=== PATIENT | female | born 1975 | race Caucasian/White ===

== ENCOUNTER 2025-04-15 14:56 | Outpatient (RCR) | payer OTHER, SELFPAY | END 2025-05-15 23:59 | disposition home or self-care (01) | LOC: HEMC 14:56 | PROVIDERS: PCP Nurse Practitioner; Referring Provider Obstetrics & Gynecology; Visit Provider Internal Medicine Hematology & Oncology | DX: I26.09 Other pulmonary embolism with acute cor pulmonale (principal); E72.12 Methylenetetrahydrofolate reductase deficiency | CPT/HCPCS: G0463 ==

== ENCOUNTER 2025-04-28 09:58 | Outpatient (OUT) | payer OTHER, SELFPAY ==
--- OUTSIDE RECORDS SUMMARY | 2025-04-28 10:02 | XMS_ITS | Clinical Summary ---
Author Organization [facility] Address [address] [place], [place] [id number] Care Team Providers Care Senior Software Engineer Analytics Name Role Phone Beti Rod RECEPTION AGENT Primary Care Provider Allergies No known active allergies Medications TURMERIC, BULK, MISC Active FLUTICASONE PROPIONATE (FLONASE NASAL) Use in the nose. Act nica montelukast (SINGULAIR) 10 mg tablet Take 10 mg by mouth daily at bedtime. Active fexofenadine (DAHIANA ALLERGY) 180 mg tablet Take 180 mg by mouth once daily. Active Ranitidine HCl 150 mg capsule Take 150 mg by mouth twice daily. Active EPINEPHrine (EPIPEN) 0.3 mg/0.3 mL auto-injector Inject 0.3 mg intramuscularly as needed. Active Active Problems No known active problems Family History Medical History Relation Comments Asthma Father Asthma Sister hydradenitis supprativa Sister Relation Status Comments Father Sister Social History Tobacco Use Types Packs/Day Years Used Date Smoking Tobacco: Former Cigarettes Smokeless Tobacco: Never Area Deprivation Index Answer Date Zion rded National Score (1-100), lower number is lower ri sk Not on file 09/24/2020 State Score (1-10), lower number is lower risk N ot on file 09/24/2020 Data from: https://www.neighborhoodatlas.medicine.[facility].edu/. Last address used for calculation Not on file 09/24/2020 Comments Unknown Sex and Gender Information Value Date Recorded Sex Assigned at Not on file Legal Sex Female 1:08 PM EST Gender Identity Not on file Sexual Orientation Not on file Last Filed Vital Signs Vital Sign Reading Time Taken Comments Blood Pressure 124/86 10/13/2017 1:50 PM EST Pulse 107 10/13/2017 1:50 PM EST Temperature 36.3 C (97.4 F) 10/13/2017 1:50 PM EST Respiratory Rate 20 10/13/2017 1:50 PM EST Oxygen Saturation 100% 10/13/2017 1:50 PM EST Inhaled Oxygen Concentration - - Weight 98 kg (216 lb) 10/13/2017 1:50 PM EST Height 177.8 cm (5' 10 ) 10/13/2017 1:50 PM EST Body Mass Index 30.99 10/13/2017 1:50 PM EST Plan of Treatment Health Maintenance Due Date Last Done Comments Anxiety Screening 1995 Depression Screening 1995 HIV Screening 1995 Hepatitis C Screening 1995 DTaP,Tdap,Td Vaccine (1 - Tdap) 1996 Hepatitis B Vaccine (1 of 3 - 19+ 3-dose series) 1996 Cervical Cancer Screening [address] Colonography 2022 Cologuard (FIT-DNA) 2022 Colonoscopy 2022 Colorectal Cancer Screening 2022 Diabetes Screening 2022 10/13/2017 Fecal Occult Blood 2022 Lipid Screening 2022 Sigmoidoscopy 2022 Covid-19 Vaccine (1 - 2023-2 5 season) 2024 Influenza Vaccine (#1) 2025 7 (Patient/Parent/Guardian Counseled and Declines) Procedures Procedure Name Priority Date/Time Associated Diagnosis Comments COMPREHENSIVE METABOLIC PANEL Routine 10/13/2017 4:55 PM EST from Last 3 Months or Most Recently Relevant to Health Maintenance Results * (ABNORMAL) COMP METABOLIC PANEL (10/13/2017 4:55 PM EST) Protein, Total 7.7 6.3 - 8.0 g/dL 10/13/2017 9:51 PM EST [facility] Albumin 4.1 3.9 - 4.9 g/dL 10/13/2017 9:51 PM EST [facility] Calcium 9.5 8.5 - 10.2 mg/dL 10/13/2017 9:51 PM EST [facility] Bilirubin, Total 0.3 0.2 - 1.3 mg/dL 10/13/2017 9:51 PM [facility] Alkaline Phosphatase 65 32 - 117 U/L 10/13/2017 9:51 PM [facility] AST 17 13 - 35 U/L 10/13/2017 9:51 PM [facility] Glucose 69(L) 74 - 99 mg/dL 10/13/2017 9:51 PM [facility] Comment: The [place] [employer] (ADA) provides guidance for cutoff values for fasting glucose and random glucose. The ADA defines fasting as no caloric intake for at least 8 hours. Fasting plasma glucose results between 100 to 125 mg/dL indicate increased risk for diabetes (prediabetes). Fasting plasma glucose results greater than or equal to 126 mg/dL meet the criteria for diagnosis of diabetes. In the absence of unequivocal hyperglycemia, results should be confirmed by repeat testing. In a patient with classic symptoms of hyperglycemia or hyperglycemic crisis, random plasma glucose results greater than or equal to 200 mg/dL meet the criteria for diagnosis of diabetes. Reference: Standards of Medical Care in Diabetes 2016, [place] [employer]. Diabetes Care. 2016.39(Suppl 1). BUN 14 7 - 21 mg/dL 10/13/2017 9:51 PM [facility] Creatinine 0.75 0.58 - 0.96 mg/dL 10/13/2017 9:51 PM [facility] Sodium 141 136 - 144 mmol/L 10/13/2017 9:51 PM [facility] Potassium 3.8 3.7 - 5.1 mmol/L 10/13/2017 9:51 PM [facility] Chloride 101 97 - 105 mmol/L 10/13/2017 9:51 PM [facility] CO2 25 22 - 30 mmol/L 10/13/2017 9:51 PM [facility] Anion Gap 15 9 - 18 mmol/L 10/13/2017 9:51 PM [facility] ALT 21 7 - 38 U/L 10/13/2017 9:51 PM [facility] eGFR- >60 10/13/2017 9:51 PM [facility] eGFR-All Other Races >60 . 10/13/2017 9:51 PM [facility] Comment: eGFR (Estimated GFR) Units of measure: mL/min/1.73 meters squared eGFR is derived from the reexpressed MDRD Study equation using the following parameters: serum creatinine, age, gender and race. The creatinine assay has been calibrated to be traceable to IDMS. An eGFR <60 mL/min/1.73m2 for >3 months is consistent with chronic kidney disease. Refer to KDOQI guidelines for clinical interpretation. In patients with unstable renal function, e.g. those with acute kidney injury, the eGFR may not accurately reflect actual GFR. 10/13/2017 4:55 PM EST 10/13/2017 5:31 PM EST us Catrina Luciano MD LABORATORY Final Result [facility] [address] [place] [address] from Last 3 Months or Most Recently Relevant to Health Maintenance Care Teams Senior Software Engineer Analytics Relationship Specialty Start Date End Date Beti Rod CNP [facility] [place] [address] [place] [address] PCP - General Family Medicine 09/26/17
--- OUTSIDE RECORDS SUMMARY | 2025-04-28 10:02 | XMS_ITS | Encounter Summary ---
Author Organization [facility] Address [address] [place] [address] Care Team Providers Care Senior Policy Analyst Name Role Phone Unavailable Primary Care Provider Unavailabl e Encounter Details Date Type Department Care Team (Late st Contact Info) Description 04/23/2025 Abstract [facility] [address] [place] [address] Isela Yang MA Social History Tobacco Use Types Packs/Day Years Used Date Smoking Tobacco: Never Assessed Comments Unknown Sex and Gender Information Value Date Recorded Sex Assigned at Not on file Legal Sex Female 6:56 PM EDT Gender Identity Female 03/30/2025 10:00 PM EDT Sexual Orientation Straight 03/30/2025 10 :00 PM EDT documented as of this encounter Plan of Treatment Upcoming Encounters Date Type Department Care Team (Late st Contact Info) Description 05/07/2025 1:30 PM EDT Procedure Visit [facility] [address] [place] [address] Arun Lee, DO [address] [place], [place] [id number] documented as of this encounter Visit Diagnoses Not on filedocumented in this encounter
--- OUTSIDE RECORDS SUMMARY | 2025-04-28 10:02 | XMS_ITS | Clinical Summary ---
Author Organization [facility] Healthcare Address [address] [place] [address] Care Team Providers Care Agile Scrum Coach Name Role Phone Unavailable Primary Care Provider Unavailabl e Allergies Active Allergy Reactions Criticality Noted Date Comments Hydroxyzine Angioedema,Dizziness,Other 07/28/20 17 Molds & Smuts Anaphylaxis High 12/31/2024 Peanut (Diagnostic) Anaphylaxis,Angioede ma,Itching,Sw elling High 03/31/2025 Pineapple 04/17/2018 Medications rivaroxaban (Xarelto) 20 MG tablet 01/18/2025 Active ferrous sulfate 325 (65 Fe) MG tablet 02/21/2025 Active fexofenadine (Sarai) 180 MG tablet Take 180 mg by mouth in the morning. 02/21/2025 Active cholecalciferol (Vitamin D-3) 10 MCG (400 UNIT) tablet Active venlafaxine XR (Effexor XR) 37.5 MG 24 hr capsuleIndicati ons:Abnormal uterine bleeding (AUB),Menorrhag ia with regular cycle,Perimenop ausal vasomotor symptoms Take 1 capsule (37.5 mg) by mouth Daily Do not crush or chew. 30 capsule 5 03/31/2025 Active Encounters Date Type Department Care Team Description 04/23/2025 Abstract [facility] [address] [address] Isela Yang MA 04/09/2025 9:00 AM EDT Ancillary Procedure [facility] [address] [place] [phone] Abnormal uterine bleeding (AUB); Menorrhagia with regular cycle; Perimenopausal vasomotor symptoms 04/09/2025 External Result Encounter [facility] External Department Unsolicited Anna Manzanares NP 03/31/2025 2:30 PM EDT Office Visit [facility] [address] [phone] Arun Lee DO Menorrhagia with regular cycle (Primary Dx); Abnormal uterine bleeding (AUB); Perimenopausal vasomotor symptoms 03/31/2025 Bamboo flowsheet [facility] [address] [place] [phone] Arun Lee DO 03/30/2025 Travel from Last 3 Months Social History Tobacco Use Types Packs/Day Years Used Date Smoking Tobacco: Never Assessed Comments Unknown Sex and Gender Information Value Date Recorded Sex Assigned at Not on file Legal Sex Female 6:56 PM EDT Gender Identity Female 03/30/2025 10:00 PM EDT Sexual Orientation Straight 03/30/2025 10 :00 PM EDT Last Filed Vital Signs Vital Sign Reading Time Taken Comments Blood Pressure 118/86 03/31/2025 2:48 PM EDT Pulse - - Temperature - - Respiratory Rate - - Oxygen Saturation - - Inhaled Oxygen Concentration - - Weight 108 kg (238 lb 8 oz) 03/31/2025 2:48 PM E DT Height - - Body Mass Index - - Plan of Treatment Upcoming Encounters Date Type Department Care Team (Late st Contact Info) Description 05/07/2025 1:30 PM EDT Procedure Visit [facility] [address] [phone] Arun Lee DO [address] [place] [address] Jacquelyn [place], [place] [id number] Procedures Procedure Name Priority Date/Time Associated Diagnosis Comments T4, FREE Routine 04/09/2025 10:33 AM EDT TSH ([facility]) Routine 04/09/2025 10:33 AM EDT CBC WITH AUTO DIFFERENTIAL Routine 04/09/2025 10:33 AM EDT PARTIAL THROMBOPLASTIN TIME, ACTIVATED Routine 04/09/2025 10:33 AM EDT PROTHROMBIN TIME-INR Routine 04/09/2025 10:33 AM EDT US PELVIC COMPLETE W/ TV Routine 04/09/2025 9:46 AM EDT Abnormal uterine bleeding (AUB) Menorrhagia with regular cycle Perimenopausal vasomotor symptoms from Last 3 Months Results * TSH ([facility]) (04/09/2025 10:33 AM EDT) TSH 1.30 0.49 - 4.67 uIU/mL [facility] Comment: PERFORMED AT [facility] [address],[place] [address] 04/09/2025 10:3 3 AM EDT 04/09/2025 10:34 AM EDT us Anna Manzanares NP LAB BLOOD ORDERABLES Final Re sult [facility] * (ABNORMAL) CBC auto differential (04/09/2025 10:33 AM EDT) WHITE BLOOD CELL COUNT, WBC 6.4 4 - 11 x10E9/L [facility] RED BLOOD CELL COUNT, RBC 5.15 3.8 - 5.2 X10E12/L [facility] HEMOGLOBIN 13.6 11.7 - 15.5 g/dL [facility] HEMATOCRIT 40.8 35 - 47 % [facility] MEAN CELL VOLUME, MCV 79(L) 80 - 100 fL [facility] MEAN CELL HEMOGLOBIN, MCH 26.4(L) 27 - 34 pg [facility] MEAN CELL HEMOGLOGIN CONCENTRATION, MCHC 33.3 32 - 36 g/dL [facility] RED CELL DISTRIBUTION WIDTH, RDW 14.5 11.5 - 15 % [facility] PLATELET COUNT 332 150 - 450 X10E9/L [facility] MEAN PLATELET VOLUME, MPV 8.3 7 - 12 fL [facility] % NEUTROPHILS 69.3 % [facility] % LYMPHOCYTES 23.7 % [facility] % MONOCYTES 5.7 % [facility] % EOSINOPHILS 0.6 % [facility] % BASOPHILS 0.7 % [facility] ABSOLUTE NEUTROPHIL 4.4 1.5 - 6.6 10*3/uL [facility] ABSOLUTE LYMPHOCYTE 1.5 1.0 - 3.5 10*3/uL [facility] ABSOLUTE MONOCYTE 0.4 0.0 - 0.9 10*3/uL [facility] ABSOLUTE EOSINOPHIL 0.0 0.0 - 0.4 10*3/uL [facility] ABSOLUTE BASOPHIL 0.0 0.0 - 0.2 10*3/uL [facility] DIFFERENTIAL TYPE AUTOMATED DIFFERENTIAL [facility] Comment: PERFORMED AT [facility] [address],[place] [address] 04/09/2025 10:3 3 AM EDT 04/09/2025 10:34 AM EDT Anna Manzanares INSPECTOR RAG [employer]ORTING LAB BLOOD ORDERABLES Final Re sult Performing Organization Address City/[facility] Co de Phone Number [facility] * APTT (04/09/2025 10:33 AM EDT) APTT 32 26 - 37 sec [facility] Comment: PERFORMED AT [address] [place] [address] 04/09/2025 10:3 3 AM EDT 04/09/2025 10:34 AM EDT Anna Manzanares INSPECTOR [employer]ING LAB BLOOD ORDERABLES Final Re sult [facility] * (ABNORMAL) Protime-INR (04/09/2025 10:33 AM EDT) PROTIME 15.1(H) 9.8 - 13.2 sec [facility] INR 1.3(H) 0.9 - 1.2 NA [facility] Comment: PERFORMED AT [facility] [address] [facility] [place] [address] 04/09/2025 10:3 3 AM EDT 04/09/2025 10:34 AM EDT us Anna Melaraerly INSPECTOR [employer] LAB BLOOD ORDERABLES Final Re sult [facility] * T4, free (04/09/2025 10:33 AM EDT) FREE T4 0.93 0.61 - 1.60 ng/dL [facility] Comment: PERFORMED AT [facility] [address],[place] [address] 04/09/2025 10:3 3 AM EDT 04/09/2025 10:34 AM EDT us Anna Melaraerly INSPECTOR [employer]ING LAB BLOOD ORDERABLES Final Re sult Performing Organization Address [facility] Co de Phone Number [facility] * US Pelvis w/ TV (04/09/2025 9:46 AM EDT) Anatomical Region Laterality Modality Pelvis Ultrasound 04/10/2025 9:48 AM EDT Narrative 04/10/2025 9:48 AM EDT EXAM: US PELVIC COMPLETE W/ TV HISTORY: Abnormal uterine bleeding, heavy and painful periods, anemia. COMPARISON: None available. TECHNIQUE: Two-dimensional transabdominal grayscale ultrasound imaging of the pelvis was performed. Color flow Doppler imaging of the ovaries was also performed. Transvaginal was performed. FINDINGS: UTERUS 9.0 x 4.3 x 6.2 cm The uterus is anteverted in position and demonstrates a normal, homogeneous echotexture. Multiple nabothian cysts are visualized within the cervix. ENDOMETRIUM 1.4 cm The endometrium demonstrates a normal, homogeneous echotexture with trace fluid. RIGHT OVARY The right ovary is not visualized due to overlying bowel gas. LEFT OVARY 3.2 x 1.6 x 2.8 cm The left ovary demonstrates a normal echotexture. There is normal color Doppler flow. There is a dominant follicle visualized. No fluid is present within the cul-de-sac. IMPRESSION: 1. Unremarkable ultrasound of the pelvis. 2. Normal color Doppler flow within the left ovary, the right ovary was not visualized. Interpreted by: Electronically signed by CANDI CHADWICK II, MD, PHD at 10-Apr-2025 09:47:18 AM [facility] Procedure Note Candi Chadwick MD - 04/10/2025 EXAM: US PELVIC COMPLETE W/ TV HISTORY: Abnormal uterine bleeding, heavy and painful periods, anemia. COMPARISON: None available. TECHNIQUE: Two-dimensional transabdominal grayscale ultrasound imaging ofthe pelvis was performed. Color flow Doppler imaging of the ovaries wasalso performed. Transvaginal was performed. FINDINGS: UTERUS 9.0 x 4.3 x 6.2 cm The uterus is anteverted in position and demonstrates a normal,homogeneous echotexture. Multiple nabothian cysts are visualized withinthe cervix. ENDOMETRIUM 1.4 cm The endometrium demonstrates a normal, homogeneous echotexture with tracefluid. RIGHT OVARY The right ovary is not visualized due to overlying bowel gas. LEFT OVARY 3.2 x 1.6 x 2.8 cm The left ovary demonstrates a normal echotexture. There is normal colorDoppler flow. There is a dominant follicle visualized. No fluid is present within the cul-de-sac. IMPRESSION: 1. Unremarkable ultrasound of the pelvis. 2. Normal color Doppler flow within the left ovary, the right ovary wasnot visualized. Interpreted by: Electronically signed by CANDI CHADWICK II, MD, PHD [id number] 09:47:18 AM [facility] Anna Manzanares NP IM US PROCEDURES Final Resul t from Last 3 Months Insurance [employer]
--- OUTSIDE RECORDS SUMMARY | 2025-04-28 10:02 | XMS_ITS | Clinical Summary ---
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 Active FEXOFENADINE HCL (DAHIANA ORAL) Take by mouth. Activ e EPINEPHRINE (EPIPEN INJ) Inject as directed. Active ADVAIR DISKUS 100-50 mcg/dose DISKUS INHALE 1 PUFF BID 2 8 Active albuterol (ACCUNEB) 0.63 mg/3 mL nebulizer solution Inhale 1 ampule by nebulization every 6 (six) hours as needed for wheezing. Active albuterol (PROVENTIL HFA;VENTOLIN HFA) 90 mcg/actuation inhaler Inhale 2 puffs every 6 (six) hours as needed for wheezing. Active LORazepam (ATIVAN) 0.5 mg tablet Take 0.5 mg by mouth every 6 (six) hours as needed for anxiety. Active montelukast (SINGULAIR) 10 mg tablet Take 10 mg by mouth daily. 7 8 Active rivaroxaban (XARELTO) 2.5 mg tablet Take 6 tablets (15 mg total) by mouth 2 (two) times a day with meals for 21 days, THEN 8 tablets (20 mg total) daily with dinner for 90 days. 972 tablet 5 04/24/20 25 Active Problems Problem Noted Date Diagnosed Date DVT (deep venous thrombosis) 01/01/2025 Other acute pulmonary emboli sm, unspecified whether acute cor pulmonale present 12/31/2024 Drainage from wound 05/14/2018 Encounters Date Type Department Care Team Description 04/09/2025 Orders Only INTERFACE-ONLY Yin Wilcox APRN-FNP 04/09/2025 Travel from Last 3 Months Family History Medical History Relation Name Comments COPD Father Diabetes Father Hyperlipidemia Father Hypertension Father Fibromyalgia Mother Breast cancer Neg Hx Relation Name Status Comments Father Alive Mother Alive poor health Sister 1 FILIPPO Alive Sister 2 MICHAEL Alive Social History Tobacco Use Types Packs/Day Years Used Date Smoking Tobacco: Never Smokeless Tobacco: Never Tobacco Cessation:Counseling Given: Not Answered Alcohol Use Standard Drinks/Week Comments Yes 0 (1 standard drink = 0.6 oz pur e alcohol) [facility] Utilities Answer Date Recorded In the past 12 months has th e electric, gas, oil, or water company threatened to shut off services in your home? No 12/31/2024 PRAPARE - Transportation Answer Date Re corded In the past 12 months, has l ack of transportation kept you from medical appointments or from getting medications? No 12/14 In the past 12 months, has l ack of transportation kept you from meetings, work, or from getting things needed for daily living? No 12/31/2024 Housing Instability Answer Date Recorde d Are you worried or concerned that in the next two months you may not have stable housing that you own, rent or stay in as a part of a household? No 12/31/2024 Childcare Answer Date Recorded Childcare Unknown 03/27/2019 Employment Answer Date Recorded Employment Unknown 03/27/2019 Hunger Screening Answer Date Recorded Within the past 12 months we worried whether our food would run out before we got money to buy more. Never True 01/01/2025 Within the past 12 months th e food we bought just didn't last and we didn't have money to get more. Never True 01/01/2025 Purpose - Life Answer Date Recorded Purpose and direction in life Unknown Comments No Sex and Gender Information Value Date Recorded Sex Assigned at Not on file Legal Sex Female 11:24 AM EDT Gender Identity Not on file Sexual Orientation Not on file Last Filed Vital Signs Vital Sign Reading Time Taken Comments Blood Pressure 130/87 01/03/2025 3:42 AM EDT Pulse 73 01/03/2025 3:42 AM EDT Temperature 36.7 C (98 F) 01/03/2025 3:42 AM EDT Respiratory Rate 21 01/03/2025 3:42 AM EDT Oxygen Saturation 97% 01/03/2025 3:42 AM EDT Inhaled Oxygen Concentration - - Weight 106.8 kg (235 lb 8 oz) 12/31/2024 10:58 P M EDT Height 177.8 cm (5' 10 ) 12/31/2024 10:58 PM EDT Body Mass Index 33.79 12/31/2024 10:58 PM EDT Plan of Treatment Upcoming Encounters Date Type Department Care Team (Late st Contact Info) Description 07/08/2025 10:00 AM EDT Lab [facility] [address] [place] [phone] Health Maintenance Due Date Last Done Comments Depression Screening 1989 Adult BMI Follow Up Plan 1995 DTaP,Tdap and Td Vaccines (1 - Tdap) 1996 Pap Smear 1998 Influenza Vaccine 06/16/2025 Adult BMI Screening 12/31/2025 12/31/2024 Tobacco Screening 12/31/2025 12/31/2024 Goals Goal Patient Goal Type Associated Problems Recent Progress Patient-Stated? Author home General Yes Sandra Landaverde LSW Note: Evaluation of progress towards goal: under treatment Medical Devices Not on file Procedures Procedure Name Priority Date/Time Associated Diagnosis Comments APTT Routine 04/09/2025 10:33 AM EDT Abnormal uterine and vaginal bleeding, unspecified Excessive and frequent menstruation with regular cycle Menopausal and female climacteric states T4, FREE Routine 04/09/2025 10:33 AM EDT Abnormal uterine and vaginal bleeding, unspecified Excessive and frequent menstruation with regular cycle Menopausal and female climacteric states PROTIME & INR Routine 04/09/2025 10:33 AM EDT Abnormal uterine and vaginal bleeding, unspecified Excessive and frequent menstruation with regular cycle Menopausal and female climacteric states TSH Routine 04/09/2025 10:33 AM EDT Abnormal uterine and vaginal bleeding, unspecified Excessive and frequent menstruation with regular cycle Menopausal and female climacteric states CBC WITH AUTO DIFFERENTIAL Routine 04/09/2025 10:33 AM EDT Abnormal uterine and vaginal bleeding, unspecified Excessive and frequent menstruation with regular cycle Menopausal and female climacteric states from Last 3 Months Results * ([facility]) CBC auto differential (04/09/2025 10:33 AM EDT) [facility] WBC 6.4 4 - 11 x10E9/L 04/09/2025 1:20 PM EDT [facility] RBC Count 5.15 3.8 - 5.2 X10E12/L 04/09/2025 1:20 PM EDT [facility] Hemoglobin 13.6 11.7 - 15.5 g/dL 04/09/2025 1:20 PM EDT [facility] Hematocrit 40.8 35 - 47 % 04/09/2025 1:20 PM EDT [facility] MCV 79(L) 80 - 100 fL 04/09/2025 1:20 PM EDT [facility] MCH 26.4(L) 27 - 34 pg 04/09/2025 1:20 PM EDT [facility] MCHC 33.3 32 - 36 g/dL 04/09/2025 1:20 PM EDT [facility] RDW 14.5 11.5 - 15 % 04/09/2025 1:20 PM EDT [facility] Platelet Count 332 150 - 450 X10E9/L 04/09/2025 1:20 PM EDT [facility] MPV 8.3 7 - 12 fL 04/09/2025 1:20 PM EDT [facility] Neutrophils % 69.3 % 04/09/2025 1:20 PM EDT [facility] Lymphocytes % 23.7 % 04/09/2025 1:20 PM EDT [facility] Monocytes % 5.7 % 04/09/2025 1:20 PM EDT [facility] Eosinophils % 0.6 % 04/09/2025 1:20 PM EDT [facility] Basophils % 0.7 % 04/09/2025 1:20 PM EDT [facility] Neutrophils Absolute (A) 4.4 1.5 - 6.6 10*3/uL 04/09/2025 1:20 PM EDT [facility] Lymphocytes Absolute 1.5 1.0 - 3.5 10*3/uL 04/09/2025 1:20 PM EDT [facility] Monocytes Absolute 0.4 0.0 - 0.9 10*3/uL 04/09/2025 1:20 PM EDT [facility] Eosinophils Absolute 0.0 0.0 - 0.4 10*3/uL 04/09/2025 1:20 PM EDT [facility] Basophils Absolute 0.0 0.0 - 0.2 10*3/uL 04/09/2025 1:20 PM EDT [facility] Differential Type AUTOMATED DIFFERENTIAL 04/09/2025 1:20 PM EDT [facility] Blood Venous blood / Unknown Venipuncture / Unknown 04/09/2025 10:33 AM EDT 04/09/2025 10:34 AM EDT us Anna Manzanares MEDICAL I D SALES-PHARMACY SERVICES REPRESENTATIVE LAB BLOOD ORDERABLES Fi nal Result [facility] [address] [place] [address], [place] [phone] * APTT (04/09/2025 10:33 AM EDT) APTT 32 26 - 37 sec 04/09/2025 11:16 AM EDT [facility] Blood Venous blood / Unknown Venipuncture / Unknown 04/09/2025 10:33 AM EDT 04/09/2025 10:34 AM EDT Anna Manzanares MEDICAL I D SALES-PHARMACY SERVICES REPRESENTATIVE LAB BLOOD ORDERABLES Fi nal Result [address] [place] [address], [place] * (ABNORMAL) Protime & INR (04/09/2025 10:33 AM EDT) PROTIME 15.1(H) 9.8 - 13.2 sec 04/09/2025 11:16 AM EDT [facility] INR 1.3(H) 0.9 - 1.2 04/09/2025 11:16 AM EDT [facility] Blood Venous blood / Unknown Venipuncture / Unknown 04/09/2025 10:33 AM EDT 04/09/2025 10:34 AM EDT Anna Melaraerly MEDICAL I D SALES-PHARMACY SERVICES REPRESENTATIVE LAB BLOOD ORDERABLES Fi nal Result [address] [place] [address], [place] * TSH (04/09/2025 10:33 AM EDT) TSH 1.30 0.49 - 4.67 uIU/mL 04/09/2025 1:46 PM EDT [facility] Blood Venous blood / Unknown Venipuncture / Unknown 04/09/2025 10:33 AM EDT 04/09/2025 10:34 AM EDT Anna Manzanares MEDICAL I D SALES-PHARMACY SERVICES REPRESENTATIVE LAB BLOOD ORDERABLES Fi nal Result [facility] [address] [place] [address], * T4, free (04/09/2025 10:33 AM EDT) FREE T4 0.93 0.61 - 1.60 ng/dL 04/09/2025 1:50 PM EDT [facility] Blood Venous blood / Unknown Venipuncture / Unknown 04/09/2025 10:33 AM EDT 04/09/2025 10:34 AM EDT Anna Manzanares MEDICAL I D SALES-PHARMACY SERVICES REPRESENTATIVE LAB BLOOD ORDERABLES Fi nal Result Performing Organization Address City/[facility]/ZIP Co de Phone Number [facility] [address] [place] [address], from Last 3 Months Insurance [place]ICAID [place] Advance Directives * Full Code (Latest Code Status on File) Date Activated Date Inactivated Comments 12/31/2024 9:54 PM 01/03/2025 1:56 PM Healthcare Agents on File Name Relationship Healthcare Agent Relationship Communication Phil Bowen Significant Other Health Care Agent Peyman Bowen Son Health Care Agent [email or web address] Joseph Simmons [facility] Agent [email or web address] Care Teams Physical Chemist Relationship Specialty Start Date End Date No Pcp, No Pcp SELVIN Donaldson [id number] PCP - General Family Medicine 12/31/24
--- NOTE | 2025-04-28 10:55 | CT_ITS ---
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 History of IVC structure and iliofemoral clot. COMPARISON: None Spiral images were obtained through the abdomen and pelvis following 100 mL of Omnipaque 300. This CT exam was performed using one or more following dose reduction techniques: Automated exposure control, adjustment of the mA and/or kV according to patient size, or use of iterative reconstruction technique. Limited cuts through the lung bases show minimal atelectasis or scarring. No calcified gallstones are identified. No intrahepatic masses are seen. The spleen, pancreas and adrenal glands show no acute findings. There are symmetric renal nephrograms, without hydronephrosis. There is a tiny fatty lesion at the right kidney suggesting angiomyolipoma. The abdominal aorta is normal caliber. There is opacification of the IVC, iliac and imaged femora vessels down to the mid thigh. There are no filling defects or expansion of the vessels to suggest venous thrombosis. There are tiny lymph nodes. No ascites is seen. There is mild diastases of the rectus muscles and a tiny hiatal hernia containing fat. The small bowel loops are normal caliber. There is mild ascending and transverse colonic stool. The left colon is decompressed. No appendiceal inflammation is seen. There is subtle dextroscoliotic curvature as well as mild degenerative changes at the spine. Images through the pelvis show normal caliber small bowel loops. There is air and mild stool at the distal colon. No diverticular disease is visualized. Patient has a menstrual cup. There are bilateral ovarian cystic areas, larger on the right measuring just under 2 cm in size. These are likely follicles. The urinary bladder is not well distended for evaluation. No ascites is seen. CT/CT angio abdomen pelvis IMPRESSION: BIBASILAR ATELECTASIS AND/OR SCARRING. NO BOWEL OR URINARY TRACT OBSTRUCTION. 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 NO EVIDENCE OF VENOUS THROMBUS. NO ACUTE FINDINGS. Impression dictated by: Jeanne Waters M.D. 04/28/2025 12:19 PM Dictation Location: [place] [address] Electronically authenticated by: [id number] Y Date: 04/28/2025 12:19
== END 2025-04-28 09:59 | disposition home or self-care (01) ==
LOC: CT 10:00
PROVIDERS: PCP Nurse Practitioner; Visit Provider Internal Medicine Hematology & Oncology
DX: E72.12 Methylenetetrahydrofolate reductase deficiency (principal); I26.09 Other pulmonary embolism with acute cor pulmonale; D50.9 Iron deficiency anemia, unspecified; K90.9 Intestinal malabsorption, unspecified
CPT/HCPCS: 74174; Q9967

== ENCOUNTER 2025-05-01 09:52 | Outpatient (OUT) | payer OTHER, SELFPAY ==
--- OUTSIDE RECORDS SUMMARY | 2025-04-08 06:30 | XMS_ITS ---
Author Organization [facility] Address [address] [place], [place] [phone] Care Team Providers Care Equine Breeder Name Role Phone Yin Bell Primary Care Provider [phone] REASON FOR VISIT frequent blood clots Social History Sex Assigned At : Social History Observation Description Sex Assigned At Female Encounters Encounter Location Date Provider Diagnosis East [address] [place] [id number] 04/08 Yin Bell Plan Of Treatment Next Appt Details Provider Name:Mariela lucio, 05/01/2025 12:45:00 PM, [address] [place] [address] [place], [address], Provider Name:Odalis cedillo, 07/10/2025 10:00:00 AM, [address] [place] [address], [phone], Progress Notes * Leann BRENNERDOB:[birth year] (49 yo F)Acc No.[id number]:04/08/2025 Medical Note Patient: Leann SOTO Provider: Kevin Bell :1975 A ge:49 Y S ex:Female Date:04/08/2025 Address:[address] [place], [place] [phone] Subjective: * Chief Complaints: * 1 . Frequent blood clots. * Medical History: Objective: * Vitals: Assessment: Plan: * Treatment: * Billing Information: * Visit Code: * Procedure Codes: * Electronic signature of ARIAS Hernandez on 05/01/2025 at 09:54 AM EDT Sign off status: Pending * Provider: Kevin Bell Date: 04/08/2025 Generated for Celena Raymundo on: 05/01/2025 09:54 AM EDT
--- OUTSIDE RECORDS SUMMARY | 2025-04-15 11:15 | XMS_ITS ---
Author Organization [facility] in [place] Address [address] [place] [address] Care Team Providers Care Neck Skewer Name Role Phone Yin Truong Primary Care Provider Maite Newell [phone] REASON FOR VISIT New PT Hem Encounters Encounter Location Date Provider Diagnosis [facility] [address] [place] [address] 04/15/2025 Maite Winchester Plan Of Treatment Next Appt Details Provider Name:Maite Winchester , 05/20/2025 10:00:00 AM, [address] [place], [address], Progress Notes * Leann FOSTERDOB:1974 (49 yo F)Acc No.[id number]:04/15/2025 UNLOCKED PROGRESS NOTE Progress Notes Patient: Ramon MONTOYA Leann Kilgore Provider: Jeannette Winchester M.D. :1975 A ge:49 Y S ex:Female Date:04/15/2025 Address:[address] [place], [place] [id number] Pcp:ARIAS Johnson Subjective: * Chief Complaints: * 1 . New PT Hem. * Medical History: Objective: * Vitals: Assessment: Plan: * Treatment: * * Electronic signature of Antonio Winchester MD, [id number] on 05/01/2025 at 09:54 AM EDT Sign off status: Pending Visit Status: P EN (Pending) * Provider: Jeannette Winchester M.D. Date: 04/15/2025 Generated for Celena goldstein/Shiloh/Romina on: 05/01/2025 09:54 AM EDT
--- OUTSIDE RECORDS SUMMARY | 2025-05-01 09:54 | XMS_ITS | Encounter Summary ---
Author Organization [facility] Address [address] [place] [address] Care Team Providers Care Patient Access Registrar Name Role Phone Unavailable Primary Care Provider Unavailabl e Encounter Details Date Type Department Care Team (Late st Contact Info) Description 04/23/2025 Abstract [facility] [address] [place] [address] Isela Yang MA Social History Tobacco [...] 05/07/2025 1:30 PM EDT Procedure Visit [facility] OB [address] [place] [address] Arun Lee, DO [address] [place], [place] [id number] documented as of this encounter Visit Diagnoses Not on filedocumented in this encounter
--- OUTSIDE RECORDS SUMMARY | 2025-05-01 09:54 | XMS_ITS | Clinical Summary ---
Author Organization [employer] s tem Address [id number] [address] [place] [address] Care Team Providers Care Seal Mixing Operator Name Role Phone No Pcp, No Pcp [...] = 0.6 oz pur e alcohol) [facility] Utilities Answer Date Recorded In the [...] Info) Description 07/08/2025 10:00 AM EDT Lab [facility] [address] [place] [phone] Health Maintenance Due Date Last Done Comments [...] CBC auto differential (04/09/2025 10:33 AM EDT) [facility] WBC 6.4 4 - 11 x10E9/L 04/09/2025 1:20 PM EDT [facility] RBC Count 5.15 3.8 - 5.2 X10E12/L 04/09/2025 1:20 PM EDT [facility] Hemoglobin 13.6 11.7 - 15.5 g/dL 04/09/2025 1:20 PM EDT [facility] Hematocrit 40.8 35 - 47 % 04/09/2025 1:20 PM EDT [facility] MCV 79(L) 80 - 100 fL 04/09/2025 1:20 PM EDT [facility] MCH 26.4(L) 27 - 34 pg 04/09/2025 1:20 PM EDT [facility] MCHC 33.3 32 - 36 g/dL 04/09/2025 1:20 PM EDT [facility] RDW 14.5 11.5 - 15 % 04/09/2025 1:20 PM EDT [facility] Platelet Count 332 150 - 450 X10E9/L 04/09/2025 1:20 PM EDT [facility] MPV 8.3 7 - 12 fL 04/09/2025 1:20 PM EDT [facility] Neutrophils % 69.3 % 04/09/2025 1:20 PM EDT [facility] Lymphocytes % 23.7 % 04/09/2025 1:20 PM EDT [facility] Monocytes % 5.7 % 04/09/2025 1:20 PM EDT [facility] Eosinophils % 0.6 % 04/09/2025 1:20 PM EDT [facility] Basophils % 0.7 % 04/09/2025 1:20 PM EDT [facility] Neutrophils Absolute (A) 4.4 1.5 - 6.6 10*3/uL 04/09/2025 1:20 PM EDT [facility] Lymphocytes Absolute 1.5 1.0 - 3.5 10*3/uL 04/09/2025 1:20 PM EDT [facility] Monocytes Absolute 0.4 0.0 - 0.9 10*3/uL 04/09/2025 1:20 PM EDT [facility] Eosinophils Absolute 0.0 0.0 - 0.4 10*3/uL 04/09/2025 1:20 PM EDT [facility] Basophils Absolute 0.0 0.0 - 0.2 10*3/uL 04/09/2025 1:20 PM EDT [facility] Differential Type AUTOMATED DIFFERENTIAL 04/09/2025 1:20 PM EDT [facility] Blood Venous blood / Unknown Venipuncture / Unknown 04/09/2025 10:33 AM EDT 04/09/2025 10:34 AM EDT us Anna Manzanares [facility] BLOOD ORDERABLES Fi nal Result [facility] [address] [place] [address], [place] [phone] * APTT (04/09/2025 10:33 AM EDT) APTT 32 26 - 37 sec 04/09/2025 11:16 AM EDT [facility] Blood Venous blood / Unknown Venipuncture / Unknown 04/09/2025 10:33 AM EDT 04/09/2025 10:34 AM EDT Anna Manzanares [facility] BLOOD ORDERABLES Fi nal Result [address] [place] [address], [place] * (ABNORMAL) Protime & INR (04/09/2025 10:33 AM EDT) PROTIME 15.1(H) 9.8 - 13.2 sec 04/09/2025 11:16 AM EDT [facility] INR 1.3(H) 0.9 - 1.2 04/09/2025 11:16 AM EDT [facility] Blood Venous blood / Unknown Venipuncture / Unknown 04/09/2025 10:33 AM EDT 04/09/2025 10:34 AM EDT Anna Melaraerly [facility] BLOOD ORDERABLES Fi nal Result [address] [place] [address], [place] * TSH (04/09/2025 10:33 AM EDT) TSH 1.30 0.49 - 4.67 uIU/mL 04/09/2025 1:46 PM EDT [facility] Blood Venous blood / Unknown Venipuncture / Unknown 04/09/2025 10:33 AM EDT 04/09/2025 10:34 AM EDT Anna Manzanares [facility] BLOOD ORDERABLES Fi nal Result [facility] [address] [place] [address], * T4, free (04/09/2025 10:33 AM EDT) FREE T4 0.93 0.61 - 1.60 ng/dL 04/09/2025 1:50 PM EDT [facility] Blood Venous blood / Unknown Venipuncture / Unknown 04/09/2025 10:33 AM EDT 04/09/2025 10:34 AM EDT Anna Manzanares [facility] BLOOD ORDERABLES Fi nal Result Performing Organization Address City/[facility]/ZIP Co de Phone Number [facility] [address] [place] [address], from Last 3 Months Insurance MEDICAID [place] Advance Directives * Full Code (Latest Code Status on File) Date Activated Date Inactivated Comments 12/31/2024 9:54 PM 01/03/2025 1:56 PM Healthcare Agents on File Name Relationship Healthcare Agent Relationship Communication Phil Bowen Significant Other Health Care Agent Peyman Bowen Son Health Care Agent [email or web address] Joseph Simmons [facility] Agent [email or web address] Care Teams Seal Mixing Operator Relationship Specialty Start Date End Date No Pcp, No Pcp SELVIN Donaldson [address] PCP - General Family Medicine 12/31/24
--- OUTSIDE RECORDS SUMMARY | 2025-05-01 09:54 | XMS_ITS | Clinical Summary ---
Author Organization [facility] Address [address] [place], [place] [address] Care Team Providers Care Cable Engineer Outside Plant Name Role Phone Beti Rod HEAD CHEF Primary Care Provider Allergies No known active [...] N ot on file 09/24/2020 Data from: [email or web address] Last address used for calculation Not [...] - 8.0 g/dL 10/13/2017 9:51 PM EST [facility] Albumin 4.1 3.9 - 4.9 g/dL 10/13/2017 9:51 PM EST [facility] Calcium 9.5 8.5 - 10.2 mg/dL 10/13/2017 9:51 PM EST [facility] Bilirubin, Total 0.3 0.2 - 1.3 mg/dL 10/13/2017 9:[address] [facility] Alkaline Phosphatase 65 32 - 117 U/L 10/13/2017 9:[address] [facility] AST 17 13 - 35 U/L 10/13/2017 9:[address] [facility] Glucose 69(L) 74 - 99 mg/dL 10/13/2017 9:[address] [facility] Comment: The [place] Diabetes Association (ADA) provides guidance for cutoff [...] Standards of Medical Care in Diabetes 2016, [place] Diabetes Association. Diabetes Care. 2016.39(Suppl 1). BUN 14 7 - 21 mg/dL 10/13/2017 9:[address] [facility] Creatinine 0.75 0.58 - 0.96 mg/dL 10/13/2017 9:[address] [facility] Sodium 141 136 - 144 mmol/L 10/13/2017 9:[address] [facility] Potassium 3.8 3.7 - 5.1 mmol/L 10/13/2017 9:[address] [facility] Chloride 101 97 - 105 mmol/L 10/13/2017 9:[address] [facility] CO2 25 22 - 30 mmol/L 10/13/2017 9:[address] [facility] Anion Gap 15 9 - 18 mmol/L 10/13/2017 9:[address] [facility] ALT 21 7 - 38 U/L 10/13/2017 9:[address] [facility] eGFR- >60 10/13/2017 9:[address] [facility] eGFR-All Other Races >60 . 10/13/2017 9:[address] [facility] Comment: eGFR (Estimated GFR) Units [...] us Catrina Luciano MD LABORATORY Final Result [facility] [address] [place] [address] from Last 3 Months or Most Recently Relevant to Health Maintenance Care Teams Cable Engineer Outside Plant Relationship Specialty Start Date End Date Beti Rod CNP [facility] [place] [place] [address] PCP - General Family Medicine 09/26/17
--- OUTSIDE RECORDS SUMMARY | 2025-05-01 09:54 | XMS_ITS | Patient Health Record ---
Author Organization [facility] Address [address] [place] [address] Care Team Providers Care Franchise Sales Representative Name Role Phone Yin Truong Primary Care Provider Maite Newell Unavailable [phone] Results Component Value Reference Range Notes CT angio abdomen pelvis (Not yet reviewed by provider) Interpretation: Performing Lab: Notes/Report: Source Facility: [place] [address] CT Scan Report Signed Patient: HARJINDER FOSTER MR#: [id number] : 1975 Acct:[id number] Age/Sex: 49 / F ADM Date: 04/28/25 Loc: CT Attending Dr: Maite Winchester M.D. Ordering Physician: Maite Winchester M.D. 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 History of IVC structure and iliofemoral clot. COMPARISON: None Spiral images were obtained through the abdomen and pelvis following 100 mL of Omnipaque 300. This CT exam was performed using one or more following dose reduction techniques: Automated exposure control, adjustment of the mA and/or kV according to patient size, or use of iterative reconstruction technique. Limited cuts through the lung bases show minimal atelectasis or scarring. No calcified gallstones are identified. No intrahepatic masses are seen. The spleen, pancreas and adrenal glands show no acute findings. There are symmetric renal nephrograms, without hydronephrosis. There is a tiny fatty lesion at the right kidney suggesting angiomyolipoma. The abdominal aorta is normal caliber. There is opacification of the IVC, iliac and imaged femora vessels down to the mid thigh. There are no filling defects or expansion of the vessels to suggest venous thrombosis. There are tiny lymph nodes. No ascites is seen. There is mild diastases of the rectus muscles and a tiny hiatal hernia containing fat. The small bowel loops are normal caliber. There is mild ascending and transverse colonic stool. The left colon is decompressed. No appendiceal inflammation is seen. There is subtle dextroscoliotic curvature as well as mild degenerative changes at the spine. Images through the pelvis show normal caliber small bowel loops. There is air and mild stool at the distal colon. No diverticular disease is visualized. Patient has a menstrual cup. There are bilateral ovarian cystic areas, larger on the right measuring just under 2 cm in size. These are likely follicles. The urinary bladder is not well distended for evaluation. No ascites is seen. CT/CT angio abdomen pelvis IMPRESSION: BIBASILAR ATELECTASIS AND/OR SCARRING. NO BOWEL OR URINARY TRACT OBSTRUCTION. 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 NO EVIDENCE OF VENOUS THROMBUS. NO ACUTE FINDINGS. Impression dictated by: Jeanne Waters M.D. 04/28/2025 12:19 PM Dictation Location: [place] [address] Electronically authenticated by: [id number] Y Date: 04/28/2025 12:19 Dictated By: Jeanne Waters M.D. Signed By: 04/28/25 1221 DD/ 1219 TD/TT: Energy Control Officer: The [address] [address] [address] Scan Report Signed Patient: CRESENCIO FOSTER MR#: [id number] : 1975 Acct:[id number] Age/Sex: 49 / F ADM Date: 04/28/25 Loc: CT Attending Dr: Ari Winchester M.D. Ordering Physician: Maite Winchester M.D. Date of Service: 04/28/25 Procedure(s): CT ang io abdomen pelvis Accession Number(s): [id number] cc: Yin Bell MEDICAL PHOTOGRAPHER [address] [address] Patient Name: HARJINDER FOSTER MRN: [id number] date: 1975 Sex: F Assigned Patient Location: CT Current Patient Location: CT Accession/Order Numb er: [id number] Exam Date: 04/28/2025 12:05 Report Date: 04/28/2025 12:19 At the request of: MAITE WINCHESTER MD Procedure: CT angio abdomen pelvis CTV OF THE ABDOMEN A ND PELVIS WITH CONTRAST CLINICAL DATA: May t ransverse syndrome. History of IVC structure and iliofemoral clot. COMPARISON: None Spiral images were o btained through the abdomen and pelvis following 100 mL of Omnipaque 300. This CT exam was performed using one or more following dose reduction techniques : Automated exposure control, adjustment of the mA and/or kV according to danita ent size, or use of iterative reconstruction technique. Limited cuts through the lung bases show minimal atelectasis or scarring. No calcified gallsto nerissa are identified. No intrahepatic masses are seen. The spleen, pancreas and adrenal glands show no acute findings. There are symmetric renal neph rograms, without hydronephrosis. There is a tiny fatty lesion at the right kidney suggesting angiomyolipoma. The abdominal aorta is normal caliber. There is opacification of the IVC, iliac and imaged fem ora vessels down to the mid thigh. There are no filling defects or expansion of the vessels to suggest venous thrombosis. There are tiny lymph nodes. No ascites is seen. There is mild diastases of the rectus muscles and a tiny h iatal hernia containing fat. The small bowel loops are normal caliber. Ther e is mild ascending and transverse colonic stool. The left colon is decomp ressed. No appendiceal inflammation is seen. There is subtle dextroscoliot ic curvature as well as mild degenerative changes at the spine. Images through the p sarah show normal caliber small bowel loops. There is air and mild stool at th e distal colon. No diverticular disease is visualized. Patient has a menstr ual cup. There are bilateral ovarian cystic areas, larger on the right measuri ng just under 2 cm in size. These are likely follicles. The urinary bladder is not well distended for evaluation. No ascites is seen. C T/CT angio abdomen pelvis IMPRESSION: BIBASILAR ATELECTASI S AND/OR SCARRING. NO BOWEL OR URINARY TRACT OBSTRUCTION. 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 NO EVIDENCE OF VENOUS THROMBUS. NO ACUTE FINDINGS. Impression dictated by: Jeanne Waters M.D. 04/28/2025 12:19 PM Dictation Location: [place] [address] Electronically authe nticated by: [id number] Y Date: 04/28/2025 12:19 Dictated By: Jeanne Waters M.D. Signed By: 04/28/25 1221 DD/ 1219 TD/TT: Energy Control Officer: Reason For Referral No Information Encounters Encounter Location Date Provider Diagnosis [facility] Oncology [facility] [place] [place] [address] 04/15/2025 Maite Winchester Plan Of Treatment Pending Test Test Name Order Date CT angio abdomen pelvis 04/28/2025 Next Appt Details Provider Name:Maite Winchester , 05/20/2025 10:00:00 AM, [address] [place], [address], Insurance Providers Payer Name Payer Address Payer Phone Subscriber Number Group Number Insured Name Patient Relationship to Insured Coverage Start Date Coverage End Date [employer] MEDICAID [address] [place] [address] [phone] [id number] Harjinder Foster Self - patient is the insured
--- OUTSIDE RECORDS SUMMARY | 2025-05-01 09:54 | XMS_ITS | Clinical Summary ---
Author Organization [facility] Healthcare Address [address] [place] [address] Care Team Providers Care Diving Board Assembler Name Role Phone Unavailable Primary Care Provider [...] Department Care Team Description 04/23/2025 Abstract [facility] [address] [address] Isela Yang MA 04/09/2025 9:00 AM EDT Ancillary Procedure [facility] [address] [place] [phone] Abnormal uterine bleeding (AUB); Menorrhagia with regular cycle; Perimenopausal vasomotor symptoms 04/09/2025 External Result Encounter [facility] External Department Unsolicited Anna Manzanares NP 03/31/2025 2:30 PM EDT Office Visit [facility] [address] [phone] Arun Lee DO Menorrhagia with regular cycle (Primary Dx); Abnormal uterine bleeding (AUB); Perimenopausal vasomotor symptoms 03/31/2025 Bamboo flowsheet [facility] [address] [place] [address] Arun Lee DO 03/30/2025 Travel from Last [...] 05/07/2025 1:30 PM EDT Procedure Visit [facility] [address] [address] Arun Lee DO [address] [place] [address] Jacquelyn Sanchez, [place] [id number] Procedures Procedure Name Priority Date/Time Associated Diagnosis [...] - 4.67 uIU/mL [facility] Comment: PERFORMED AT [facility] [address],[place] [address] 04/09/2025 10:3 3 AM EDT 04/09/2025 10:34 [...] TYPE AUTOMATED DIFFERENTIAL [facility] Comment: PERFORMED AT [facility] [address],[place] [address] 04/09/2025 10:3 3 AM EDT 04/09/2025 10:34 AM EDT Anna Manzanares RN L[facility]ENSED PRACTICAL LAB BLOOD ORDERABLES Final Re sult Performing Organization Address City/[facility] Co de Phone Number [facility] * APTT (04/09/2025 10:33 AM EDT) APTT 32 26 - 37 sec [facility] Comment: PERFORMED AT [address] [place] [address] 04/09/2025 10:3 3 AM EDT 04/09/2025 10:34 AM EDT Anna Manzanares RN LICENSED PRACTICAL LAB BLOOD ORDERABLES Final Re sult [facility] * (ABNORMAL) Protime-INR (04/09/2025 10:33 AM EDT) PROTIME 15.1(H) 9.8 - 13.2 sec [facility] INR 1.3(H) 0.9 - 1.2 NA [facility] Comment: PERFORMED AT [facility] [address] [facility] [place] [address] 04/09/2025 10:3 3 AM EDT 04/09/2025 10:34 AM EDT us Anna Melaraerly RN LICENSED PRACTICAL LAB BLOOD ORDERABLES Final Re sult [facility] * T4, free (04/09/2025 10:33 AM EDT) FREE T4 0.93 0.61 - 1.60 ng/dL [facility] Comment: PERFORMED AT [facility] [address],[place] [address] 04/09/2025 10:3 3 AM EDT 04/09/2025 10:34 AM EDT us Anna Melaraerly RN LICENSED PRACTICAL LAB BLOOD ORDERABLES Final Re sult Performing Organization Address [facility] Co de Phone Number [facility] * [...] II, MD, PHD at 10-Apr-2025 09:47:18 AM [facility] Procedure Note Candi Chadwick MD - [...] signed by CANDI CHADWICK II, MD, PHD [id number] 09:47:18 AM [facility] Anna Manzanares NP IM US PROCEDURES Final Resul t from Last 3 Months Insurance [facility] MEDICAID
[2025-05-01 10:25] LABS: Hematocrit 42.6 % (36.0-48.0); Hemoglobin 14.1 g/dL (12.0-16.0); Immature Granulocytes Abs Auto 0.01 10^3/uL (0.00-0.03); Immature Granulocytes Pct Auto 0.1 % (0.0-0.5); Lymphocytes Absolute Auto 1.6 10^3/uL (1.2-3.8); Mean Corpuscular HGB Conc 33.1 g/dL (29.9-35.2); Mean Corpuscular Hemoglobin 26.4 pg (26.7-34.0); Mean Corpuscular Volume 79.6 fL (81.0-99.0); Platelet Count 334 10^3/uL (150-450); Red Blood Count 5.35 10^6/uL (4.20-5.40); White Blood Count 7.4 10^3/uL (4.0-11.0)
[2025-05-01 11:15] LABS: Iron 50.0 ug/dL (50.0-170.0); Percent Iron Saturation 14.9 %; Total Iron Binding Capacity 336.0 ug/dL (250.0-450.0)
[2025-05-02 15:09] LABS: Beta-2 Glycoprotein I Ab, IgA <9 (0-25); Beta-2 Glycoprotein I Ab, IgG <9 (0-20); Beta-2 Glycoprotein I Ab, IgM <9 (0-32)
[2025-05-02 16:14] LABS: Anticardiolipin Ab,IgG,Qn <9 GPL U/mL (0-14); Anticardiolipin Ab,IgM,Qn <9 MPL U/mL (0-12)
== END 2025-05-01 09:53 | disposition home or self-care (01) ==
LOC: LAB 09:52
PROVIDERS: PCP Nurse Practitioner; Visit Provider Internal Medicine Hematology & Oncology
DX: E72.12 Methylenetetrahydrofolate reductase deficiency (principal); I26.09 Other pulmonary embolism with acute cor pulmonale; D50.9 Iron deficiency anemia, unspecified; K90.9 Intestinal malabsorption, unspecified
CPT/HCPCS: 36415; 82728; 83540; 83550; 85025; 86146; 86147; 86148

== ENCOUNTER 2025-05-07 12:16 | Outpatient (REF) | payer OTHER, SELFPAY | END 2025-05-07 12:17 | disposition home or self-care (01) | LOC: LAB 12:16 | PROVIDERS: PCP Nurse Practitioner; Visit Provider Obstetrics & Gynecology | DX: N92.0 Excessive and frequent menstruation with regular cycle (principal); N93.9 Abnormal uterine and vaginal bleeding, unspecified | CPT/HCPCS: 88305 ==

== ENCOUNTER 2025-05-20 07:50 | Outpatient (RCR) | payer OTHER, SELFPAY | END 2025-06-15 23:59 | disposition home or self-care (01) | LOC: HEMC 07:50 | PROVIDERS: PCP Nurse Practitioner; Visit Provider Internal Medicine Hematology & Oncology | DX: I26.09 Other pulmonary embolism with acute cor pulmonale (principal); E72.12 Methylenetetrahydrofolate reductase deficiency; D50.9 Iron deficiency anemia, unspecified; K90.9 Intestinal malabsorption, unspecified; Z86.718 Personal history of other venous thrombosis and embolism; Z79.01 Long term (current) use of anticoagulants; D23.10 Other benign neoplasm of skin of unspecified eyelid, including canthus | CPT/HCPCS: 36415; 80061; G0463 ==

== ENCOUNTER 2025-05-20 13:08 | Outpatient (OUT) | payer OTHER, SELFPAY ==
--- OUTSIDE RECORDS SUMMARY | 2025-04-08 06:30 | XMS_ITS ---
Author Organization [facility] Address [address] [place] [phone] Care Team Providers Care Furnace Mechanic Name Role Phone Yin Bell Primary Care Provider REASON FOR VISIT frequent blood clots Social History Sex Assigned At : Social History Observation Description Sex Assigned At Female Encounters Encounter Location Date Provider Diagnosis East [address] [place] [id number] 04/08 Yin Bell Plan Of Treatment Next Appt Details Provider Name:Odalis Mcghee nguyen, 07/10/2025 10:00:00 AM, [address] [place] [address], [phone], Progress Notes * Leann BRENNERDOB:[birth year] (49 yo F)Acc No.[id number]:04/08/2025 Medical Note Patient: Leann SOTO Provider: Kevin Bell :1975 A ge:49 Y S ex:Female Date:04/08/2025 Address:[address] [place], [place] [id number] Subjective: * Chief Complaints: * 1 . Frequent blood clots. * Medical History: Objective: * Vitals: Assessment: Plan: * Treatment: * Billing Information: * Visit Code: * Procedure Codes: * Electronic signature of ARIAS Hernandez on 06/20/2025 at 01:10 PM EDT Sign off status: Pending * Provider: Kevin Bell Date: 0 04/08/2025 Generated for Celena goldstein/Shiloh/Jianitting on: 0 06/20/2025 01:10 PM EDT
--- OUTSIDE RECORDS SUMMARY | 2025-04-15 11:15 | XMS_ITS ---
Author Organization [facility] [place] Address [address] [place] [address] Care Team Providers Care Public Health Physician Name Role Phone Yin Truong Primary Care Provider Maite Newell [phone] REASON FOR VISIT New PT Hem Encounters Encounter Location Date Provider Diagnosis [facility] [address] [place] [address] 04/15/2025 Maite Winchester Plan Of Treatment Next Appt Details Provider Name:Maite Winchester , 12/23/2025 10:30:00 AM, [address] [place], [address], Progress Notes * Leann FOSTERDOB:1974 (49 yo F)Acc No.[id number]:04/15/2025 UNLOCKED PROGRESS NOTE Progress Notes Patient: Ramon MONTOYA Leann Kilgore Provider: Jeannette Winchester M.D. :1975 A ge:49 Y S ex:Female Date:04/15/2025 Address:[address] [place], [place] [id number] Pcp:ARIAS oJhnson Subjective: * Chief Complaints: * 1 . New PT Hem. * Medical History: Objective: * Vitals: Assessment: Plan: * Treatment: * * Electronic signature of Antonio Winchester MD, [id number] on 06/20/2025 at 01:10 PM EDT Sign off status: Pending Visit Status: P EN (Pending) * Provider: Jeannette Winchester M.D. Date: 0 04/15/2025 Generated for Celena goldstein/Shiloh/Romina on: 06/20/2025 01:10 PM EDT
--- OUTSIDE RECORDS SUMMARY | 2025-04-15 11:15 | XMS_ITS ---
Author Organization [facility] in [place] Address [address] [place] [address] Care Team Providers Care Hearings Reporter Name Role Phone Yin Truong Primary Care Provider Maite Newell [phone] REASON FOR VISIT New PT Hem Encounters Encounter Location Date Provider Diagnosis [facility] [address] [place] [address] 04/15/2025 Maite Winchester Plan Of Treatment Next Appt Details Provider Name:Maite Winchester , 05/20/2025 10:00:00 AM, [address] [place], [address], Progress Notes * Leann FOSTERDOB:1974 (49 yo F)Acc No.[id number]:04/15/2025 UNLOCKED PROGRESS NOTE Progress Notes Patient: Ramon MONTOYA Leann Kilgore Provider: Jeannette Winchester M.D. :1975 A ge:49 Y S ex:Female Date:04/15/2025 Address:[address] [place], [place] [phone] Pcp:ARIAS Johnson Subjective: * Chief Complaints: * 1 . New PT Hem. * Medical History: Objective: * Vitals: Assessment: Plan: * Treatment: * * Electronic signature of Antonio Winchester MD, [id number] on 05/07/2025 at 08:44 AM EDT Sign off status: Pending Visit Status: P EN (Pending) * Provider: Jeannette Winchester M.D. Date: 04/15/2025 Generated for Celena goldstein/Shiloh/Romina on: 05/07/2025 08:44 AM EDT
--- OUTSIDE RECORDS SUMMARY | 2025-05-02 08:00 | XMS_ITS ---
Author Organization [facility] vices Address [address] [place] [address] Care Team Providers Care Yarn Tester Name Role Phone Yin Bell Primary Care Provider Mariela Nesbitt Unavailable [phone] REASON FOR VISIT lab Medications Medication SIG (Take, Route, Fr equency, Duration) Notes Start Date End Date Status Cephalexin 500 MG 1 capsule Orally twi ce a day for 7 days 05/02/2025 Active Social History Sex Assigned At : Social History Observation Description Sex Assigned At Female Encounters Encounter Location Date Provider Diagnosis Main [address] [place] [id number] 05/02/2025 Marielatrell Nesbitt Urinary tract infect ion N39.0 Assessments Encounter Date Diagnosis (ICD Code) Assessment Notes Treatment Notes Treatment Clinical Notes Section Notes 05/02/2025 Urinary tract infection (ICD-10 - N39.0) Plan Of Treatment Medication Medication Name Sig Start Date Stop Date Notes Cephalexin 500 MG 1 capsule Orally twice a day for 7 days 05/02/2025 Next Appt Details Provider Name:Odalis cedillo, 07/10/2025 10:00:00 AM, [address] [place], [place], [phone], Progress Notes * Leann BRENNERDOB:[birth year] (49 yo F)Acc No.[id number]:05/02/2025 Patient: Leann SOTO :1975 A ge:49 Y S ex:Female Address:[address] [place] [address], [phone] * Refills Start Cephalexin Capsule, 500 MG, Orally, 14 Capsule, 1 capsule, twice a day, 7 days, Refills=0 Subjective: * Chief Complaints: * L ab * Medical History: * Surgical History: * Hospitalization/Major Diagno stic Procedure: * Medications: Objective: * Vitals: * Physical Examination: Assessment: * Assessment: 1. U rinary tract infection - N39.0 (Primary) Plan: * Treatment: * Procedure Codes: * true * Date: Generated for Celena goldstein/Shiloh/eTransmitting on: 0 05/07/2025 02:51 PM EDT
--- OUTSIDE RECORDS SUMMARY | 2025-05-02 12:23 | XMS_ITS | Encounter Summary ---
Author Organization [facility] Address [id number] [address] [place] [address] Care Team Providers Care Prototype Fabricator Name Role Phone No Pcp, No Pcp Primary Care Provider Unavailabl e Encounter Details Date Type Department Care Team (Latest Contact Info) Description 05/02/2025 12:23 PM EDT - 05/02/2025 11:59 PM EDT Hospital Encounter [facility] - Ultrasound [address] [place] [phone] Urinary symptom or sign Discharge Disposition: Home Social History Tobacco Use Types Packs/Day Years Used Date Smoking Tobacco: Never Smokeless Tobacco: Never Alcohol Use Standard Drinks/Week Comments Yes 0 (1 standard drink = 0.6 oz pur e alcohol) SOCIALLY [facility] Utilities Answer Date Recorded In the past 12 months has e electric, gas, oil, or water company [...] on file Sexual Orientation Not on file documented as of this encounter Medications at Time of Discharge ADVAIR DISKUS 100-50 mcg/dose DISKUS INHALE 1 PUFF BID 2 02/05/2018 albuterol (ACCUNEB) 0.63 mg/3 mL nebulizer solution Inhale 1 ampule by nebulization every 6 (six) hours as needed for wheezing. albuterol (PROVENTIL HFA;VENTOLIN HFA) 90 mcg/actuation inhaler Inhale 2 puffs every 6 (six) hours as needed for wheezing. EPINEPHRINE (EPIPEN INJ) Inject as directed. FEXOFENADINE HCL (DAHIANA ORAL) Take by mouth. LORazepam (ATIVAN) 0.5 mg tablet Take 0.5 mg by mouth every 6 (six) hours as needed for anxiety. montelukast (SINGULAIR) 10 mg tablet Take 10 mg by mouth daily. 7 04/08/2018 ranitidine (ZANTAC) 150 mg tablet Take 150 mg by mouth 2 (two) times a day. documented as of this encounter Plan of Treatment Upcoming Encounters Date Type Department Care Team (Late st Contact Info) Description 07/08/2025 10:00 AM EDT Lab [facility] - Lab [address] [place] [address] documented as of this encounter Goals Goal Patient Goal Type Associated Problems Recent Progress Patient-Stated? Author home General Yes Sandra Landaverde LSW Note: Evaluation of progress towards goal: under treatment documented as of this encounter Procedures Procedure Name Priority Date/Time Associated Diagnosis Comments US RETROPERITONEAL COMPLETE STAT 05/02/2025 12:43 PM EDT Urinary symptom or sign documented in this encounter Results * Ultrasound retroperitoneal complete (05/02/2025 12:43 PM EDT) Anatomical Region Laterality Modality Body Ultrasound 05/02/2025 12:5 6 PM EDT Narrative 05/02/2025 12:58 PM EDT US RETROPERITONEAL COMPLETE CLINICAL HISTORY: Urinary symptoms flank pain COMPARISON: No prior Sonographic images kidneys and bladder obtained with chavarria scale and color Doppler reviewed FINDINGS: Right kidney: 10.7 x 4.6 x 5.4 cm. No hydronephrosis. No solid or cystic mass. No shadowing stones. Left kidney: 10.6 x 5.3 x 5.8 cm. No hydronephrosis. No solid or cystic mass. No shadowing stones. Bladder not completely distended but otherwise unremarkable bilateral ureteral jets are visualized. Prevoid volume 215.6 mL. Post void volume 11.4 mL. IMPRESSION: * Normal renal ultrasound. * Normal bladder Finalized by Salvador Holbrook MD on 05/02/2025 12:58 PM Procedure Note Salavdor Holbrook MD - 05/02/2025 US RETROPERITONEAL COMPLETE CLINICAL HISTORY: Urinary symptoms flank pain COMPARISON: No prior Sonographic images kidneys and bladder obtained with chavarria scale and colorDoppler reviewed FINDINGS: Right kidney: 10.7 x 4.6 x 5.4 cm. No hydronephrosis. No solid or cysticmass. No shadowing stones. Left kidney: 10.6 x 5.3 x 5.8 cm. No hydronephrosis. No solid or cysticmass. No shadowing stones. Bladder not completely distended but otherwise unremarkable bilateralureteral jets are visualized. Prevoid volume 215.6 mL. Post void .4 mL. IMPRESSION: * Normal renal ultrasound. * Normal bladder Finalized by Salvador Holbrook MD on 05/02/2025 12:58 PM us Mariela Nesbitt MD IMG US ORDERABLES Final Resul t documented in this encounter Visit Diagnoses Diagnosis Urinary symptom or sign documented in this encounter Care Teams Prototype Fabricator Relationship Specialty Start Date End Date No Pcp, [place] [address] PCP - General Family Medicine 12/31/24 documented as of this encounter
--- OUTSIDE RECORDS SUMMARY | 2025-05-07 13:30 | XMS_ITS | Encounter Summary ---
Author Organization [facility] Address [address] [place] [address] Care Team Providers Care Project Development Director Name Role Phone Unavailable Primary Care Provider Unavailabl e Reason for Visit * Reason Comments Pre-op Visit EMBX Encounter Details Date Type Department Care Team (Late st Contact Info) Description 05/07/2025 1:30 PM EDT Procedure Visit [facility] OB [address] [place] [address] Arun eLe DO [address] [facility] [address] [place], [place] [phone] Pre-op examination; Pelvic pain; Menorrhagia with regular cycle; Abnormal uterine bleeding (AUB); Squamous acanthoma of eyelid Social History Tobacco Use Types Packs/Day Years [...] Care Team (Late st Contact Info) Description 06/19/2025 10:00 AM EDT Office Visit [facility] OB [address] [place] [address] Georgie Villa PA [address] [facility] [place] [address] Scheduled Orders Name Type Priority Associated Diagnoses Orde r Schedule Lipid panel Lab Routine Squamous acanthoma of eyelid Expected: 05/07/2025 (Approximate), Expires: 05/07/2026 documented as of this encounter Visit Diagnoses Diagnosis Pre-op examination Pelvic pain Menorrhagia with regular cycle Abnormal uterine bleeding (AUB) Squamous acanthoma of eyelid Benign neoplasm of eyelid, including canthus documented in this encounter
--- OUTSIDE RECORDS SUMMARY | 2025-05-07 14:51 | XMS_ITS | Clinical Summary ---
Author Organization [facility] Address [id number] [address] [place] [address] Care Team Providers Care Hospitalist Program Director Name Role Phone No Pcp, No Pcp [...] Encounters Date Type Department Care Team Description 05/02/2025 12:23 PM EDT - 05/02/2025 11:59 PM EDT Hospital Encounter [facility] - Ultrasound [address] [place] [address] Urinary symptom or sign Discharge Disposition: Home 05/01/2025 Travel 04/09/2025 Orders Only INTERFACE-ONLY Yin Wilcox APRN-FNP [...] = 0.6 oz pur e alcohol) SOCIALLY [facility] Utilities Answer Date Recorded In the past 12 months has e [employer], gas, oil, or water company threatened to [...] Info) Description 07/08/2025 10:00 AM EDT Lab [facility] - Lab [address] [place] [phone] Health Maintenance Due Date Last Done Comments [...] 12:43 PM EDT Urinary symptom or sign APTT Routine 04/09/2025 10:33 AM EDT Abnormal [...] states from Last 3 Months Results * Ultrasound retroperitoneal complete (05/02/2025 12:43 [...] MD on 05/02/2025 12:58 PM Procedure Note Salvador Holbrook MD - 05/02/2025 US RETROPERITONEAL COMPLETE [...] visualized. Prevoid volume 215.6 mL. Post void ulqubo52.4 mL. IMPRESSION: * Normal renal ultrasound. * Normal bladder Finalized by Salvador Holbrook MD on 05/02/2025 12:58 PM us Mariela Nesbitt MD [facility] US ORDERABLES Final Resul t * (ABNORMAL) CBC auto differential (04/09/2025 10:33 AM EDT) WBC 6.4 4 - 11 x10E9/L 04/09/2025 1:20 PM EDT [facility] RBC Count 5.15 3.8 - 5.2 X10E12/L 04/09/2025 1:20 PM EDT [facility] Hemoglobin 13.6 11.7 - 15.5 g/dL 04/09/2025 1:20 PM EDT [facility] Hematocrit 40.8 35 - 47 % 04/09/2025 1:20 PM EDT [facility] MCV 79(L) 80 - 100 fL 04/09/2025 1:20 PM EDT [facility] MCH 26.4(L) 27 - 34 pg 04/09/2025 1:20 PM EDT [facility] MCHC 33.3 32 - 36 g/dL 04/09/2025 1:20 PM EDT [facility] RDW 14.5 11.5 - 15 % 04/09/2025 1:20 PM EDT [facility] Platelet Count 332 150 - 450 X10E9/L 04/09/2025 1:20 PM EDT [facility] MPV 8.3 7 - 12 fL 04/09/2025 1:20 PM EDT [facility] Neutrophils % 69.3 % 04/09/2025 1:20 PM EDT [facility] Lymphocytes % 23.7 % 04/09/2025 1:20 PM EDT [facility] Monocytes % 5.7 % 04/09/2025 1:20 PM EDT [facility] Eosinophils % 0.6 % 04/09/2025 1:20 PM EDT [facility] Basophils % 0.7 % 04/09/2025 1:20 PM EDT [facility] Neutrophils Absolute (A) 4.4 1.5 - 6.6 10*3/uL 04/09/2025 1:20 PM EDT [facility] Lymphocytes Absolute 1.5 1.0 - 3.5 10*3/uL 04/09/2025 1:20 PM EDT [facility] Monocytes Absolute 0.4 0.0 - 0.9 10*3/uL 04/09/2025 1:20 PM EDT [facility] Eosinophils Absolute 0.0 0.0 - 0.4 10*3/uL 04/09/2025 1:20 PM EDT [facility] Basophils Absolute 0.0 0.0 - 0.2 10*3/uL 04/09/2025 1:20 PM EDT [facility] Differential Type AUTOMATED DIFFERENTIAL 04/09/2025 1:20 PM EDT [facility] Blood Venous blood / Unknown Venipuncture / Unknown 04/09/2025 10:33 AM EDT 04/09/2025 10:34 AM EDT Anna Melaraerly [facility] BLOOD ORDERABLES Fi nal Result [facility] [address] [place] [address], [place] [phone] * APTT (04/09/2025 10:33 AM EDT) APTT 32 26 - 37 sec 04/09/2025 11:16 AM EDT [facility] Blood Venous blood / Unknown Venipuncture / Unknown 04/09/2025 10:33 AM EDT 04/09/2025 10:34 AM EDT Anna Leighton [facility] BLOOD ORDERABLES Fi nal Result Performing Organization Address City/[facility]/ZIP Co de Phone Number [address] [place] [address], [place] * (ABNORMAL) Protime & INR (04/09/2025 10:33 AM EDT) PROTIME 15.1(H) 9.8 - 13.2 sec 04/09/2025 11:16 AM EDT [facility] INR 1.3(H) 0.9 - 1.2 04/09/2025 11:16 AM EDT [facility] Blood Venous blood / Unknown Venipuncture / Unknown 04/09/2025 10:33 AM EDT 04/09/2025 10:34 AM EDT Anna Leighton [facility] BLOOD ORDERABLES Fi nal Result [facility] [address] [place] [address]. [place] [address], [place] * TSH (04/09/2025 10:33 AM EDT) TSH 1.30 0.49 - 4.67 uIU/mL 04/09/2025 1:46 PM EDT [facility] Blood Venous blood / Unknown Venipuncture / Unknown 04/09/2025 10:33 AM EDT 04/09/2025 10:34 AM EDT Anna Leighton [facility] BLOOD ORDERABLES Fi nal Result [facility] [address] [place] [address], * T4, free (04/09/2025 10:33 AM EDT) FREE T4 0.93 0.61 - 1.60 ng/dL 04/09/2025 1:50 PM EDT [facility] Blood Venous blood / Unknown Venipuncture / Unknown 04/09/2025 10:33 AM EDT 04/09/2025 10:34 AM EDT Anna Leighton [facility] BLOOD ORDERABLES Fi nal Result [facility] [address] [place] [address], from Last 3 Months Insurance MEDICAID [place] Advance Directives * Full Code (Latest Code Status on File) Date Activated Date Inactivated Comments 12/31/2024 9:54 PM 01/03/2025 1:56 PM Healthcare Agents on File Name Relationship Healthcare Agent Relationship Communication Phil Bowen Significant Other Health Care Agent Peyman Simmons Health Care Agent [email or web address] Joseph Simmons Health Care Agent [email or web address] Care Teams Hospitalist Program Director Relationship Specialty Start Date End Date No Pcp, No Pcp [place] [id number] PCP - General Family Medicine 12/31/24
--- OUTSIDE RECORDS SUMMARY | 2025-05-07 14:51 | XMS_ITS | Encounter Summary ---
Author Organization [facility] Address [id number] [address] [place] [address] Care Team Providers Care Account Clerk Name Role Phone No Pcp, No Pcp Primary Care Provider Unavailabl e Encounter Details Date Type Department Care Team (Latest Contact Info) Description 05/01/2025 Travel Social History Tobacco Use Types Packs/Day Years Used Date Smoking Tobacco: Never Smokeless Tobacco: Never Alcohol Use Standard Drinks/Week Comments Yes 0 (1 standard drink = 0.6 oz pur e alcohol) SOCIALLY [facility] Utilities Answer Date Recorded In the [...] on file documented as of this encounter Plan of Treatment Upcoming Encounters Date Type Department Care Team (Late st Contact Info) Description 07/08/2025 10:00 AM EDT Lab [facility] - Lab [address] [place] [address] documented as of this encounter Goals Goal Patient Goal Type Associated Problems Recent Progress Patient-Stated? Author home General Yes Sandra Landaverde LSW Note: Evaluation of progress towards goal: under treatment documented as of this encounter Visit Diagnoses Not on filedocumented in this encounter Care Teams Account Clerk Relationship Specialty Start Date End Date No Pcp, [place] [phone] PCP - General Family Medicine 12/31/24 documented as of this encounter
--- OUTSIDE RECORDS SUMMARY | 2025-05-07 14:51 | XMS_ITS | Encounter Summary ---
Author Organization [facility] Address [address] [place] [address] Care Team Providers Care Crown Buffer Name Role Phone Unavailable Primary Care Provider Unavailabl e Encounter Details Date Type Department Care Team (Late st Contact Info) Description 04/23/2025 Abstract [facility] OB [address] [place] [address] Isela Yang MA Social History Tobacco [...] 06/19/2025 10:00 AM EDT Office Visit [facility] OB [address] [place] [address] Georgie Villa PA [address] [place], [place] [phone] documented as of this encounter Visit Diagnoses Not on filedocumented in this encounter
--- OUTSIDE RECORDS SUMMARY | 2025-05-07 14:51 | XMS_ITS | Clinical Summary ---
Author Organization [facility] Address [address] [place], [place] [address] Care Team Providers Care Commercial Development Manager Name Role Phone Beti Rod SAUSAGE MACHINE OPERATOR Primary Care Provider Allergies No known active [...] N ot on file 09/24/2020 Data from: https://www.neighborhoodatlas.medicine.[facility].edu/. Last address used for calculation Not on [...] Blood 2022 Lipid Screening 2022 Sigmoidoscopy 2022 Influenza Vaccine (#1) 2025 7 (Patient/Parent/Guardian Counseled and Declines) Procedures Procedure Name Priority Date/Time Associated Diagnosis Comments COMPREHENSIVE METABOLIC PANEL Routine 10/13/2017 4:55 PM EST from Last 3 Months or Most Recently Relevant to Health Maintenance Results * (ABNORMAL) COMP METABOLIC PANEL (10/13/2017 4:55 PM EST) Pathologist [facility] Protein, Total 7.7 6.3 - 8.0 g/dL 10/13/2017 9:51 PM EST [facility] Albumin 4.1 3.9 - 4.9 g/dL 10/13/2017 9:51 PM EST [facility] Calcium 9.5 8.5 - 10.2 mg/dL 10/13/2017 9:51 PM EST [facility] Bilirubin, Total 0.3 0.2 - 1.3 mg/dL 10/13/2017 9:51 PM EST [facility] Alkaline Phosphatase 65 32 - 117 U/L 10/13/2017 9:51 PM [facility] AST 17 13 - 35 U/L 10/13/2017 9:51 PM [facility] Glucose 69(L) 74 - 99 mg/dL 10/13/2017 9:51 PM [facility] Comment: The [place] Diabetes Association (ADA) provides guidance for cutoff [...] Standards of Medical Care in Diabetes 2016, [place] Diabetes Association. Diabetes Care. 2016.39(Suppl 1). BUN 14 7 - 21 mg/dL 10/13/2017 9:51 PM [facility] Creatinine 0.75 0.58 - 0.96 mg/dL 10/13/2017 9:51 PM [facility] Sodium 141 136 - 144 mmol/L 10/13/2017 9:51 PM [facility] Potassium 3.8 3.7 - 5.1 mmol/L 10/13/2017 9:51 PM [facility] Chloride 101 97 - 105 mmol/L 10/13/2017 9:51 PM [facility] CO2 25 22 - 30 mmol/L 10/13/2017 9:51 PM [facility] Anion Gap 15 9 - 18 mmol/L 10/13/2017 9:51 PM [facility] ALT 21 7 - 38 U/L 10/13/2017 9:51 PM [facility] eGFR- >60 10/13/2017 9:51 PM [facility] eGFR-All Other Races >60 . 10/13/2017 9:51 PM [facility] Comment: eGFR (Estimated GFR) Units [...] us Catrina Luciano MD LABORATORY Final Result [facility] [address] [place] [address] from Last 3 Months or Most Recently Relevant to Health Maintenance Care Teams Commercial Development Manager Relationship Specialty Start Date End Date Beti Rod CNP [facility] [place] [address] [place] [address] PCP - General Family Medicine 09/26/17
--- OUTSIDE RECORDS SUMMARY | 2025-05-07 14:51 | XMS_ITS | Clinical Summary ---
Author Organization [facility] Address [address] [place] [address] Care Team Providers Care Lavatory Attendant Name Role Phone Unavailable Primary Care Provider Unavailabl e Allergies Active Allergy Reactions Criticality Noted Date Comments Hydroxyzine Angioedema,Dizziness,Other 07/28/20 17 Molds & Smuts Anaphylaxis High 12/31/2024 Peanut (Diagnostic) Anaphylaxis,Angioede ma,Itching,Sw elling High 03/31/2025 Pineapple 04/17/2018 Medications rivaroxaban (Xarelto) 20 MG tablet 5 Active ferrous sulfate 325 (65 Fe) MG tablet 5 Active fexofenadine (Sarai) 180 MG tablet Take 180 mg by mouth in the morning. 5 Active cholecalcifero l (Vitamin D-3) 10 MCG (400 UNIT) tablet Active cephalexin (Keflex) 500 MG capsule Take 500 mg by mouth in the morning and 500 mg before bedtime. 5 Active methocarbamol (Robaxin) 500 MG tablet TAKE 1 TABLET BY MOUTH EVERY 4 HOURS FOR 14 DAYS 5 Active phenazopyridin e (Pyridium) 200 MG tablet 5 Active venlafaxine XR (Effexor XR) 37.5 MG 24 hr capsuleIndicat ions:Abnormal uterine bleeding (AUB),Menorrha leah with regular cycle,Perimeno pausal vasomotor symptoms Take 1 capsule (37.5 mg) by mouth Daily Do not crush or chew. 30 capsule 5 5 05/07/20 25 Discontinued Encounters Date Type Department Care Team Description 05/07/2025 1:30 PM EDT Procedure Visit [facility] [address] [place] [address] Arun Lee DO Pre-op examination; Pelvic pain; Menorrhagia with regular cycle; Abnormal uterine bleeding (AUB); Squamous acanthoma of eyelid 05/05/[address] [facility] [address] [place] [address] Felisha Greer MA 04/23/2025 Abstract [facility] [address] [place] [address] Isela Yang MA 04/09/2025 9:00 AM EDT Ancillary Procedure [facility] [address] [place] [address] Abnormal uterine bleeding (AUB); Menorrhagia with regular cycle; Perimenopausal vasomotor symptoms 04/09/2025 External Result Encounter [facility] External Department Unsolicited Anna Manzanares NP 03/31/2025 2:30 PM EDT Office Visit [facility] [address] [place] [address] Arun Lee DO Menorrhagia with regular cycle (Primary Dx); Abnormal uterine bleeding (AUB); Perimenopausal vasomotor symptoms 03/31/2025 Bamboo flowsheet [facility] [address] [place] [address] Arun Lee DO 03/30/2025 Travel from Last [...] 06/19/2025 10:00 AM EDT Office Visit [facility] [address] [place] [address] Georgie Villa PA [address] [place] [address] Procedures Procedure Name Priority Date/Time Associated Diagnosis [...] - 4.67 uIU/mL [facility] Comment: PERFORMED AT [facility] [address],[place] [address] 04/09/2025 10:3 3 AM EDT 04/09/2025 10:34 AM EDT Anna Manzanares SENIOR MARKETING ASSOCIATE LAB BLOOD ORDERABLES Final Re sult BLUE * (ABNORMAL) CBC auto differential (04/09/2025 10:33 [...] TYPE AUTOMATED DIFFERENTIAL [facility] Comment: PERFORMED AT [facility] [address],[place] [address] 04/09/2025 10:3 3 AM EDT 04/09/2025 10:34 AM EDT us Anna Manzanares SENIOR MARKETING ASSOCIATE LAB BLOOD ORDERABLES Final Re sult [facility] * APTT (04/09/2025 10:33 AM EDT) APTT 32 26 - 37 sec [facility] Comment: PERFORMED AT [address] [place] [address] 04/09/2025 10:3 3 AM EDT 04/09/2025 10:34 AM EDT us Anna Manzanares SENIOR MARKETING ASSOCIATE LAB BLOOD ORDERABLES Final Re sult Performing Organization Address [facility] Co de Phone Number [facility] * (ABNORMAL) Protime-INR (04/09/2025 10:33 AM EDT) PROTIME 15.1(H) 9.8 - 13.2 sec [facility] INR 1.3(H) 0.9 - 1.2 NA [facility] Comment: PERFORMED AT [address] [place] [address] 04/09/2025 10:3 3 AM EDT 04/09/2025 10:34 AM EDT us Anna Manzanares SENIOR MARKETING ASSOCIATE LAB BLOOD ORDERABLES Final Re sult Performing Organization Address [facility] de Phone Number [facility] * T4, free (04/09/2025 10:33 AM EDT) FREE T4 0.93 0.61 - 1.60 ng/dL [facility] Comment: PERFORMED AT [facility] [address],[place] [address] 04/09/2025 10:3 3 AM EDT 04/09/2025 10:34 AM EDT us Anna Manzanares SENIOR MARKETING ASSOCIATE LAB BLOOD ORDERABLES Final Re sult Performing Organization Address [facility] de Phone Number [facility] * US Pelvis [...] II, MD, PHD at 10-Apr-2025 09:47:18 AM [facility] Procedure Note Candi Chadwick MD - [...] signed by CANDI CHADWICK II, MD, PHD 09:47:18 AM [facility] us Anna Manzanares NP IMG US PROCEDURES Final Resul t from Last 3 Months Insurance [employer] MEDICAID
--- OUTSIDE RECORDS SUMMARY | 2025-05-07 14:52 | XMS_ITS | Patient Health Record ---
Author Organization The [facility] in [place] Address [address] [place] [address] Care Team Providers Care Tank Washer Name Role Phone Yin Truong Primary Care Provider Maite Newell Unavailable [phone] Results Component Value Reference Range Notes CT angio abdomen pelvis (Not yet reviewed by provider) Interpretation: Performing Lab: Notes/Report: Source Facility: [place] [address] CT Scan Report Signed Patient: HARJINDER FOSTER MR#: [id number] : 1975 Acct:[id number] Age/Sex: 49 / F ADM Date: 04/28/25 Loc: CT Attending Dr: Maite Winchester M.D. Ordering Physician: Maite Winchester M.D. Date of Service: 04/28/25 Procedure(s): CT angio abdomen pelvis Accession Number(s): [id number] cc: Yin Bell CERTIFIED PERSONAL FINANCE COUNSELOR [place] [id number] Patient Name: HARJINDER FOSTER MRN: [id number] date: 1975 Sex: F Assigned Patient Location: CT Current Patient Location: CT Accession/Order Number: [id number] Exam Date: 04/28/2025 12:05 Report Date: 04/28/2025 [...] Waters M.D. 04/28/2025 12:19 PM Dictation Location: [place] [address] Electronically authenticated by: [id number] Y Date: 04/28/2025 12:19 Dictated By: Jeanne Waters M.D. Signed By: 04/28/25 1221 DD/ 1219 TD/TT: Flat Sorting Machine Clerk: The [address] [address] [address] Scan Report Signed Patient: HARJINDER FOSTER MR#: [id number] : 1975 Acct:[id number] Age/Sex: 49 / F ADM Date: 04/28/25 Loc: CT Attending Dr: Ari Winchester M.D. Ordering Physician: Maite Winchester M.D. Date of Service: 04/28/25 Procedure(s): CT ang io abdomen pelvis Accession Number(s): [id number] cc: Yin Bell CERTIFIED PERSONAL FINANCE COUNSELOR [address] [address] Patient Name: HARJINDER FOSTER MRN: [id number] date: 1975 Sex: F Assigned Patient Location: CT Current Patient Location: CT Accession/Order Numb er: [id number] Exam Date: 04/28/2025 12:05 Report Date: 04/28/2025 12:19 At the request of: MAITE WINCHESTER MD Procedure: CT angio abdomen pelvis CTV OF THE ABDOMEN A ND PELVIS WITH CONTRAST CLINICAL DATA: May transverse [...] seen. CT/CT angio abdomen pelvis IMPRESSION: BIBASILAR ATELECTASI S AND/OR SCARRING. NO BOWEL OR URINARY TRACT OBSTRUCTION. 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 NO EVIDENCE OF VENOU S THROMBUS. NO ACUTE FINDINGS. Impression dictated by: Jeanne Waters M.D. 04/28/2025 12:19 PM Dictation Location: [place] [address] Electronically authenticated by: [id number] Y Date: 04/28/2025 12:19 Dictated By: Jeanne Waters M.D. Signed By: 04/28/25 1221 DD/ 1219 TD/TT: Flat Sorting Machine Clerk: CBC AUTO DIFF (Not yet revie wed by provider) Interpretation: Performing Lab: Notes/Report: [facility] , White Blood Count 7.4 4.0-11.0 10 3/uL Red Blood Count 5.35 4.20-5.40 10 6/uL Hemoglobin 14.1 12.0-16.0 g/dL Hematocrit 42.6 36.0-48.0 % Mean Corpuscular Volume 79.6 81.0-99.0 fL Mean Corpuscular Hemoglobin 26.4 26.7-34.0 pg Mean Corpuscular HGB Conc 33.1 29.9-35.2 g/dL Red Cell Distribution Width 14.0 11.0-15.0 % Platelet Count 334 150-450 10 3/uL Mean Platelet Volume 9.2 9.5-13.5 fL Neutrophils Percent Auto 71.4 43.0-75.0 % Lymphocytes Percent Auto 21.2 20.5-60.0 % Monocytes Percent Auto 5.4 1.7-12.0 % Eosinophils Percent Auto 1.2 0.9-7.0 % Basophils Percent Auto 0.7 0.2-2.0 % Immature Granulocytes Pct Auto 0.1 0.0-0.5 % Neutrophils Absolute Auto 5.3 1.4-6.5 10 3/uL Lymphocytes Absolute Auto 1.6 1.2-3.8 10 3/uL Monocytes Absolute Auto 0.4 0.3-0.8 10 3/uL Eosinophils Absolute Auto 0.1 0.0-0.7 10 3/uL Basophils Absolute Auto 0.1 0.0-0.1 10 3/uL Immature Granulocytes Abs Auto 0.01 0.00-0.03 10 3/uL Performing Lab: see note - [facility] LB IRON AND TIBC (Not yet revie wed by provider) Interpretation: Performing Lab: Notes/Report: [facility] , Iron 50.0 50.0-170.0 ug/dL Total Iron Binding Capacity 336.0 250.0-450.0 ug/dL Percent Iron Saturation 14.9 Performing Lab: see note - [facility] LB LAB TESTING (Not yet reviewe d by provider) Interpretation: Performing Lab: Notes/Report: [id number] Ferritin [facility] , Miscellaneous Test COMMENT . Test Ordered: [id number] Ferritin Ferritin 57 ng/mL Reference Range: 15-150 Performed at: - [facility] [id number] Silviculture Teacher: Renzo Garcia PhD, Phone: [phone] Performing Lab: see note - [facility] LB Beta-2 Glycoprotein I Ab,G,A ,M (Not yet reviewed by provider) Interpretation: Performing Lab: Notes/Report: [facility] , Beta-2 Glycoprotein I Ab, IgG <9 0-20 Result Units: GPI IgG units The reference interval reflects a 3SD or 99th percentile interval, which is thought to represent a potentially clinically significant result in accordance with the International Consensus Statement on the classification criteria for definitive antiphospholipid syndrome (APS). J Thromb Haem 2006;4:295-306. Beta-2 Glycoprotein I Ab, IgA <9 0-25 Result Units: GPI IgA units The reference interval reflects a 3SD or 99th percentile interval, which is thought to represent a potentially clinically significant result in accordance with the International Consensus Statement on the classification criteria for definitive antiphospholipid syndrome (APS). J Thromb Haem 2006;4:295-306. Beta-2 Glycoprotein I Ab, IgM <9 0-32 Result Units: GPI IgM units The reference interval reflects a 3SD or 99th percentile interval, which is thought to represent a potentially clinically significant result in accordance with the International Consensus Statement on the classification criteria for definitive antiphospholipid syndrome (APS). J Thromb Haem 2006;4:295-306. Performed at: [address] [id number] Silviculture Teacher: Renzo Garcia PhD, Phone: [phone] Performing Lab: see note - [facility] LB Anticardiolipin Ab, IgG/M, Q n (Not yet reviewed by provider) Interpretation: Performing Lab: Notes/Report: [facility] , Anticardiolipin Ab,IgG,Qn <9 0-14 GPL U/mL Negative: <15 Indeterminate: 15 - 20 Low-Med Positive: >20 - 80 High Positive: >80 Anticardiolipin Ab,IgM,Qn <9 0-12 MPL U/mL Negative: <13 Indeterminate: 13 - 20 Low-Med Positive: >20 - 80 High Positive: >80 Performed at: [address] [id number] Silviculture Teacher: Renzo Garcia PhD, Phone: [phone] Performing Lab: see note [facility] LB LAB TESTING (Not yet reviewe d by provider) Interpretation: Performing Lab: Notes/Report: [id number] Antiphosphatidylserine, IgG and IgM [facility] , Miscellaneous Test COMMENT . Test Ordered: [id number] Antiphosphatidylserine, IgG/IgM Antiphosphatidylserine IgG 12 Units BN Reference Range: 0-30 Antiphosphatidylserine IgM 23 Units BN Reference Range: 0-30 Performed at: [address] [id number] Silviculture Teacher: Lyle Jefferson MD, Phone: [phone] Performed at: [address] [id number] Silviculture Teacher: Renzo Garcia PhD, Phone: [phone] Performing Lab: see note - [facility] LB Reason For Referral No Information Encounters Encounter Location Date Provider Diagnosis [facility] [address] [place] [address] 04/15/2025 Maite Winchester Plan Of Treatment Pending Test Test Name Order Date CBC AUTO DIFF 05/01/2025 IRON AND TIBC 05/01/2025 LAB TESTING 05/01/2025 LAB TESTING 05/01/2025 CT angio abdomen pelvis 04/28/2025 Beta-2 Glycoprotein I Ab,G,A,M Anticardiolipin Ab, IgG/M, Qn 05/01/2025 Next Appt Details Provider Name:Maite Yeboahwla , 05/20/2025 10:00:00 AM, [address] [place], [address], Insurance Providers Payer Name Payer Address Payer Phone Subscriber Number Group Number Insured Name Patient Relationship to Insured Coverage Start Date Coverage End Date [employer] MEDICAID [address] [place] [address] [phone] [id number] Harjinder Foster Self - patient is the insured
--- OUTSIDE RECORDS SUMMARY | 2025-05-07 14:52 | XMS_ITS | Encounter Summary ---
Author Organization [facility] Address [address] [place] [address] Care Team Providers Care Ophthalmologist Name Role Phone Unavailable Primary Care Provider Unavailabl e Encounter Details Date Type Department Care Team (Late st Contact Info) Description 05/05/2025 Telephone [facility] [address] [place] [address] Felisha Greer MA [address] [place] [address] Social History Tobacco Use Types Packs/Day Years Used Date Smoking Tobacco: Never Assessed Comments Unknown Sex and Gender Information Value Date Recorded Sex Assigned at Not on file Legal Sex Female 6:56 PM EDT Gender Identity Female 03/30/2025 10:00 PM EDT Sexual Orientation Straight 03/30/2025 10 :00 PM EDT documented as of this encounter Miscellaneous Notes * Telephone Encounter - Felisha Greer MA - 05/05/2025 11:06 AM EDT Pt called she was put on an antibiotic for a UTI on Monday. Is having an endometrial bx done in office on . Pt was concerned if she could still have the bx if on antibiotics? Called pt back and advised she will be ok with the in house procedure of the EMBX however, to continue taking all the rxto clear the UTI. Pt asked if she is to start her period the week of the bx is it ok? I advised pt it is ok by Dr. Lee. PVU. documented in this encounter Plan of Treatment Upcoming Encounters Date Type Department Care Team (Late st Contact Info) Description 06/19/2025 10:00 AM EDT Office Visit [facility] [address] [facility] [address] Georgie Villa PA [address] [facility] [place] [address] documented as of this encounter Visit Diagnoses Not on filedocumented in this encounter
--- OUTSIDE RECORDS SUMMARY | 2025-05-20 06:00 | XMS_ITS ---
Author Organization The [facility] in [place] Address [address] [place] [address] Care Team Providers Care Corporate Webmaster Name Role Phone Yin Truong Primary Care Provider Maite Newell Unavailable [phone] REASON FOR VISIT MD Encounters Encounter Location Date Provider Diagnosis [facility] [address] [place] [address] 05/20/2025 Maite Winchester Plan Of Treatment Next Appt Details Provider Name:Maite Winchester , 12/23/2025 10:30:00 AM, [address] [place], [address], Progress Notes * Leann FOSTERDOB:1974 (49 yo F)Acc No.[id number]:05/20/2025 UNLOCKED PROGRESS NOTE Progress Notes Patient: Ramon MONTOYA Leann Kilgore Provider: Jeannette Winchester M.D. :1975 A ge:49 Y S ex:Female Date:05/20/2025 Address:[address] [place], [place] [id number] Pcp:ARIAS Johnson Subjective: * Chief Complaints: * 1 . MD. * Medical History: Objective: * Vitals: Assessment: Plan: * Treatment: * * Electronic signature of Antonio Winchester MD, [id number] on 06/20/2025 at 01:10 PM EDT Sign off status: Pending Visit Status: C ONFPHONE (Voice) * Provider: Jeannette Winchester M.D. Date: 0 05/20/2025 Generated for Celena goldstein/Shiloh/Romina on: 0 06/20/2025 01:10 PM EDT
[2025-05-20 10:19] LABS: Cholesterol 207 mg/dL (<=200); HDL Cholesterol 55 mg/dL (40-60); Triglycerides 86 mg/dL (<=150); VLDL CHOLESTEROL 17.2 mg/dL
--- OUTSIDE RECORDS SUMMARY | 2025-06-19 10:00 | XMS_ITS | Encounter Summary ---
Author Organization [facility] Address [address] [place] [address] Care Team Providers Care Product Support Analyst Name Role Phone Unavailable Primary Care Provider Unavailabl e Reason for Visit * Reason Comments Post-op Visit Encounter Details Date Type Department Care Team (Late st Contact Info) Description 06/19/2025 10:00 AM EDT Office Visit [facility] [address] [place] [address] Anna Manzanares, BANG [address] [place] [address] Postop check; Vaginal discharge; STD exposure; Sexually transmitted disease exposure Social History Tobacco Use Types Packs/Day Years Used Date Smoking Tobacco: Never Assessed Comments Unknown Sex and Gender Information Value Date Recorded Sex Assigned at Not on file Legal Sex Female 6:56 PM EDT Gender Identity Female 03/30/2025 10:00 PM EDT Sexual Orientation Straight 03/30/2025 10 :00 PM EDT documented as of this encounter Last Filed Vital Signs Vital Sign Reading Time Taken Comments Blood Pressure 120/74 06/19/2025 10:18 AM EDT Pulse - - Temperature - - Respiratory Rate - - Oxygen Saturation - - Inhaled Oxygen Concentration - - Weight 106 kg (233 lb 1.9 oz) 06/19/2025 10:18 A M EDT Height - - Body Mass Index - - documented in this encounter Progress Notes * Anna Manzanares NP - 06/19/2025 10:00 AM EDT Reason for Appointment: Patient ID: Leann Foster is a 49 y.o. female who presents for Post-op Visit Patient presents today for STD Check. and 1 Week Post Op Follow Up appointment. MEDICATIONS Current Outpatient Medications Medication Instructions cephalexin (KEFLEX) 500 mg, 2 times daily cholecalciferol (Vitamin D-3) 10 MCG (400 UNIT) tablet ferrous sulfate 325 (65 Fe) MG tablet fexofenadine (DAHIANA) 180 mg, Daily RT methocarbamol (Robaxin) 500 MG tablet TAKE 1 TABLET BY MOUTH EVERY 4 HOURS FOR 14 DAYS phenazopyridine (Pyridium) 200 MG tablet rivaroxaban (Xarelto) 20 MG tablet ALLERGIES Allergies Allergen Reactions Molds & Smuts Anaphylaxis Other Reaction(s): Difficulty breathing Peanut (Diagnostic) Anaphylaxis, Angioedema, Itching and Swelling Peanut-Containing Drug Products Anaphylaxis Takes epi pen/has available Other Reaction(s): Comments: Allergy test showed very high allergic reaction Flavoring Agent Other Reaction(s): Difficulty breathing Hydroxyzine Angioedema, Dizziness and Other Other Reaction(s): Comments: Numbness of face. Physical weakness. Pineapple PROBLEMS Active Ambulatory Problems Diagnosis Date Noted No Active Ambulatory Problems Resolved Ambulatory Problems Diagnosis Date Noted No Resolved Ambulatory Problems No Additional Past Medical History HISTORY PAST MEDICAL HISTORY SOCIAL HISTORY No past medical history on file. Social History Tobacco Use Smoking status: Not on file Smokeless tobacco: Not on file Substance Use Topics Alcohol use: Not on file Drug use: Not on file FAMILY HISTORY No family history on file. SURGICAL HISTORY Past Surgical History: Procedure Laterality Date BI MAMMO GUIDED LOCALIZATION BREAST RIGHT Right 04/17/2018 BI MAMMO GUIDED LOCALIZATION BREAST RIGHT 04/17/2018 CT ANGIOGRAM HEART CORONARY 12/31/2024 CT ANGIOGRAM TAVR 12/31/2024 CT ANGIOGRAM HEART CORONARY 11/28/2019 CT ANGIOGRAM TAVR 11/28/2019 DILATION AND CURETTAGE OF UTERUS mab ENDOMETRIAL ABLATION 06/06/2025 SALPINGECTOMY Bilateral REVIEW OF SYSTEMS Review of Systems: Review of Systems Constitutional: Negative. HENT: Negative. Eyes: Negative. Respiratory: Negative. Cardiovascular: Negative. Gastrointestinal: Negative. Genitourinary: Negative. Musculoskeletal: Negative. Skin: Negative. Neurological: Negative. All other systems reviewed and are negative. Hematological: Negative. Endocrine: Negative. Allergic/Immunologic: Negative. OBJECTIVE Objective: Physical Exam Constitutional: Appearance: Normal appearance. She is well-developed. Cardiovascular: Rate and Rhythm: Normal rate and regular rhythm. Pulmonary: Effort: Pulmonary effort is normal. Breath sounds: Normal breath sounds. Abdominal: General: Bowel sounds are normal. There is no distension. Palpations: Abdomen is soft. Tenderness: There is no abdominal tenderness. There is no guarding or rebound. Musculoskeletal: General: No swelling. Normal range of motion. Right lower leg: No edema. Left lower leg: No edema. Neurological: Mental Status: She is alert and oriented to person, place, and time. Skin: General: Skin is warm and dry. Psychiatric: Mood and Affect: Mood normal. Behavior: Behavior normal. Vitals and nursing note reviewed. Exam conducted with a ship manager present. Vitals: There is no height or weight on file to calculate BMI. BP: 120/74 No LMP recorded. ASSESSMENT & PLAN ICD-10-CM 1. Postop check Z09 2. Vaginal discharge N89.8 3. STD exposure Z20.2 4. Sexually transmitted disease exposure Z20.2 HIV-1 and HIV-2 antibodies Hepatitis B surface antigen RPR Patient present for post op appointment after endometrial ablation. She has no complaints of pain or discomfort. She reports STI exposure and would like STI labs and cultures. She has no complaints of pelvic pain or significant discharge unrelated to endometrial ablation. entered by Anna Manzanares NP on behalf of: Anna Manzanares NP documented in this encounter Plan of Treatment Scheduled Orders Name Type Priority Associated Diagnoses Orde r Schedule HIV-1 and HIV-2 antibodies Lab Routine Sexually transmitted disease exposure Ordered: 06/19/2025 Hepatitis B surface antigen Lab Routine Sexually transmitted disease exposure Ordered: 06/19/2025 RPR Lab Routine Sexually transmitted disease exposure Ordered: 06/19/2025 HSV nonspecific, IgG Lab Routine STD exposure Ordered: 06/19/2025 HSV nonspecific, IgM Lab Routine STD exposure Ordered: 06/19/2025 documented as of this encounter Visit Diagnoses Diagnosis Postop check Follow-up examination, following unspecified surgery Vaginal discharge Leukorrhea, not specified as infective STD exposure Sexually transmitted disease exposure Contact with or exposure to venereal diseases documented in this encounter
--- OUTSIDE RECORDS SUMMARY | 2025-06-20 13:10 | XMS_ITS | Clinical Summary ---
Author Organization [facility] Address [id number] [address] [place] [address] Care Team Providers Care Study Manager Name Role Phone No Pcp, No Pcp [...] - 05/02/2025 11:59 PM EDT Hospital Encounter [facility] - Ultrasound [address] [place] [address] Urinary symptom or sign Discharge Disposition: Home 05/01/2025 Travel 04/09/2025 Orders Only INTERFACE-ONLY Yin Wilcox APRN-ARIAS 04/09/2025 Travel from Last 3 Months Family [...] = 0.6 oz pur e alcohol) SOCIALLY [facility] Utilities Answer Date Recorded In the past [...] Info) Description 07/08/2025 10:00 AM EDT Lab [facility] - Lab [address] [place] [address] Health Maintenance Due Date Last [...] visualized. Prevoid volume 215.6 mL. Post void wypgvh92.4 mL. IMPRESSION: * Normal renal ultrasound. * Normal bladder Finalized by Salvador Holbrook MD on 05/02/2025 12:58 PM us Mariela Nesbitt MD IMG US ORDERABLES Final Resul t * (ABNORMAL) CBC auto differential (04/09/2025 10:33 AM EDT) WBC 6.4 4 - 11 x10E9/L 04/09/2025 1:20 PM EDT [facility] RBC Count 5.15 3.8 - 5.2 X10E12/L 04/09/2025 1:20 PM EDT [facility] Hemoglobin 13.6 11.7 - 15.5 g/dL 04/09/2025 1:20 PM EDT [facility] Hematocrit 40.8 35 - 47 % 04/09/2025 1:20 PM EDT [facility] MCV 79(L) 80 - 100 fL 04/09/2025 1:20 PM EDT [facility] MCH 26.4(L) 27 - 34 pg 04/09/2025 1:20 PM EDT [facility] MCHC 33.3 32 - 36 g/dL 04/09/2025 1:20 PM EDT [facility] RDW 14.5 11.5 - 15 % 04/09/2025 1:20 PM EDT [facility] Platelet Count 332 150 - 450 X10E9/L 04/09/2025 1:20 PM EDT [facility] MPV 8.3 7 - 12 fL 04/09/2025 1:20 PM EDT [facility] Neutrophils % 69.3 % 04/09/2025 1:20 PM EDT [facility] Lymphocytes % 23.7 % 04/09/2025 1:20 PM EDT [facility] Monocytes % 5.7 % 04/09/2025 1:20 PM EDT [facility] Eosinophils % 0.6 % 04/09/2025 1:20 PM EDT [facility] Basophils % 0.7 % 04/09/2025 1:20 PM EDT [facility] Neutrophils Absolute (A) 4.4 1.5 - 6.6 10*3/uL 04/09/2025 1:20 PM EDT [facility] Lymphocytes Absolute 1.5 1.0 - 3.5 10*3/uL 04/09/2025 1:20 PM EDT [facility] Monocytes Absolute 0.4 0.0 - 0.9 10*3/uL 04/09/2025 1:20 PM EDT [facility] Eosinophils Absolute 0.0 0.0 - 0.4 10*3/uL 04/09/2025 1:20 PM EDT [facility] Basophils Absolute 0.0 0.0 - 0.2 10*3/uL 04/09/2025 1:20 PM EDT [facility] Differential Type AUTOMATED DIFFERENTIAL 04/09/2025 1:20 PM EDT [facility] Blood Venous blood / Unknown Venipuncture / Unknown 04/09/2025 10:33 AM EDT 04/09/2025 10:34 AM EDT us Anna Manzanares LOCOMOTIVE OPERATOR HELPER-PURCHASING ASSOCIATE LAB BLOOD ORDERABLES Fi nal Result [facility] [address] [place] [address], [place] [phone] * APTT (04/09/2025 10:33 AM EDT) APTT 32 26 - 37 sec 04/09/2025 11:16 AM EDT [facility] Blood Venous blood / Unknown Venipuncture / Unknown 04/09/2025 10:33 AM EDT 04/09/2025 10:34 AM EDT Anna Leighton LOCOMOTIVE OPERATOR HELPER-PURCHASING ASSOCIATE LAB BLOOD ORDERABLES Fi nal Result [address] [place] [address], [place] * (ABNORMAL) Protime & INR (04/09/2025 10:33 AM EDT) PROTIME 15.1(H) 9.8 - 13.2 sec 04/09/2025 11:16 AM EDT [facility] INR 1.3(H) 0.9 - 1.2 04/09/2025 11:16 AM EDT [facility] Blood Venous blood / Unknown Venipuncture / Unknown 04/09/2025 10:33 AM EDT 04/09/2025 10:34 AM EDT Anna Melaraerly LOCOMOTIVE OPERATOR HELPER-PURCHASING ASSOCIATE LAB BLOOD ORDERABLES Fi nal Result [address] [place] [address], [place] * TSH (04/09/2025 10:33 AM EDT) TSH 1.30 0.49 - 4.67 uIU/mL 04/09/2025 1:46 PM EDT [facility] Blood Venous blood / Unknown Venipuncture / Unknown 04/09/2025 10:33 AM EDT 04/09/2025 10:34 AM EDT Anna Melaraerly LOCOMOTIVE OPERATOR HELPER-PURCHASING ASSOCIATE LAB BLOOD ORDERABLES Fi nal Result [facility] [address] [place] [address], [place] [phone] * T4, free (04/09/2025 10:33 AM EDT) FREE T4 0.93 0.61 - 1.60 ng/dL 04/09/2025 1:50 PM EDT [facility] Blood Venous blood / Unknown Venipuncture / Unknown 04/09/2025 10:33 AM EDT 04/09/2025 10:34 AM EDT Anna Manzanares LOCOMOTIVE OPERATOR HELPER-PURCHASING ASSOCIATE LAB BLOOD ORDERABLES Fi nal Result Performing Organization Address City/[facility]/ZIP Co de Phone Number [facility] [address] [place] [address], [place] [phone] from Last 3 Months Insurance [facility] MEDICAID Advance Directives * Full Code (Latest Code Status on File) Date Activated Date Inactivated Comments 12/31/2024 9:54 PM 01/03/2025 1:56 PM Healthcare Agents on File Name Relationship Healthcare Agent [facility] Communication [facility] Agent Joseph Simmons Health Care Agent Care Teams Study Manager Relationship Specialty Start Date End Date No Pcp, [place] [address] PCP - General Family Medicine 12/31/24
--- OUTSIDE RECORDS SUMMARY | 2025-06-20 13:10 | XMS_ITS | Clinical Summary ---
Author Organization [facility] Address [address] [place], [place] [id number] Care Team Providers Care Viscose Cellar Worker Name Role Phone Beti Rod DUMP TRUCK OPERATOR Primary Care Provider [phone] Allergies No known active allergies Medications TURMERIC, [...] N ot on file 09/24/2020 Data from: [email or web address] Last address used for calculation Not [...] METABOLIC PANEL (10/13/2017 4:55 PM EST) Pathologist [facility] [place] Protein, Total 7.7 6.3 - 8.0 g/dL 10/13/2017 9:51 PM EST [facility] Albumin 4.1 3.9 - 4.9 g/dL 10/13/2017 9:51 PM EST [facility] Calcium 9.5 8.5 - 10.2 mg/dL 10/13/2017 9:51 PM EST [facility] Bilirubin, Total 0.3 0.2 - 1.3 mg/dL 10/13/2017 9:51 PM EST [facility] Alkaline Phosphatase 65 32 - 117 U/L 10/13/2017 9:51 PM [facility] AST 17 13 - 35 U/L 10/13/2017 9:51 PM [facility] Glucose 69(L) 74 - 99 mg/dL 10/13/2017 9:51 PM [facility] Comment: The [place] [employer] (ADA) provides guidance for cutoff [...] Standards of Medical Care in Diabetes 2016, [place] [employer]. Diabetes Care. 2016.39(Suppl 1). BUN 14 7 - 21 mg/dL 10/13/2017 9:51 PM [facility] Creatinine 0.75 0.58 - 0.96 mg/dL 10/13/2017 9:51 PM [facility] Sodium 141 136 - 144 mmol/L 10/13/2017 9:51 PM [facility] Potassium 3.8 3.7 - 5.1 mmol/L 10/13/2017 9:51 PM [facility] Chloride 101 97 - 105 mmol/L 10/13/2017 9:51 PM [facility] CO2 25 22 - 30 mmol/L 10/13/2017 9:51 PM [facility] Anion Gap 15 9 - 18 mmol/L 10/13/2017 9:51 PM [facility] ALT 21 7 - 38 U/L 10/13/2017 9:51 PM [facility] eGFR- >60 10/13/2017 9:51 PM [facility] eGFR-All Other Races >60 . 10/13/2017 9:51 PM [facility] Comment: eGFR (Estimated GFR) Units of [...] us Catrina Luciano MD LABORATORY Final Result [facility] [address] [place] [place] [address] from Last 3 Months or Most Recently Relevant to Health Maintenance Care Teams Viscose Cellar Worker Relationship Specialty Start Date End Date Beti Rod CNP [facility] [place] [address] PCP - General Family Medicine 09/26/17
--- OUTSIDE RECORDS SUMMARY | 2025-06-20 13:10 | XMS_ITS | Clinical Summary ---
Author Organization [facility] Address [address] [place] [address] Care Team Providers Care Disbursing Officer Name Role Phone Unavailable Primary Care Provider Unavailabl e Allergies Active Allergy Reactions Criticality Noted Date Comments Flavoring Agent 06/19/2025 Other Reaction(s): Difficulty breathing Hydroxyzine Angioedema,Dizziness , Other 07/28/2017 Other Reaction(s): Comments: Numbness of face. Physical weakness. Molds & Smuts Anaphylaxis High 12/31/2024 Other Reaction(s): Difficulty breathing Peanut (Diagnostic) Anaphylaxis,Angioede m a,Itching,Swelling High 03/31/2025 Peanut-Containing Drug Products Anaphylaxis High 04/17/2018 Takes epi pen/has available Other Reaction(s): Comments: Allergy test showed very high allergic reaction Pineapple 04/17/2018 Medications rivaroxaban (Xarelto) 20 MG [...] Encounters Date Type Department Care Team Description 06/19/2025 10:00 AM EDT [place] [address] Anna Manzanares, BANG Postop check; Vaginal discharge; STD exposure; Sexually transmitted disease exposure 06/19/2025 Clinisync Result Encounter NOMS External Department Unsolicited Anna Manzanares, OIL BURNER TECHNICIAN 06/19/2025 [place] [address] Anna Manzanares, BANG 06/19/2025 Travel 06/06/2025 [place] [address] Arun Lee, 06/06/2025 Clinisync Result Encounter NOMS External Department Unsolicited Arun Lee, DO 05/27/2025 Clinisync Result Encounter NOMS External Department Unsolicited Arun Lee, 05/23/2025 [place] [address] Isela Yang MA 05/20/2025 Clinisync Result Encounter NOMS External Department Unsolicited Arun Lee, 05/07/2025 1:30 PM EDT [place] [address] Arun Lee, Pre-op examination; Pelvic pain; Menorrhagia with regular cycle; Abnormal uterine bleeding (AUB); Squamous acanthoma of eyelid 05/07/2025 Abstract [facility] [address] [place] [address] Arun Lee, 05/05/2025 Telephone [facility] [address] [place] [address] [place] [phone] Felisha Greer MA 04/23/2025 Abstract [facility] [address] [place] [address] [place] [phone] Isela Yang MA 04/09/2025 9:00 AM EDT Ancillary Procedure [facility] [place] [phone] Abnormal uterine bleeding (AUB); Menorrhagia with regular cycle; Perimenopausal vasomotor symptoms 04/09/2025 External Result Encounter NOMS External Department Unsolicited Anna Manzanares NP 03/31/2025 2:30 PM EDT Office Visit [facility] [place] [address] Arun Lee DO Menorrhagia with regular cycle (Primary Dx); Abnormal uterine bleeding (AUB); Perimenopausal vasomotor symptoms 03/31/2025 Bamboo flowsheet [facility] [address] [address] [place] [address] [place] [phone] Arun Lee DO 03/30/2025 Travel from Last [...] Mass Index - - Plan of Treatment Not on file Procedures Procedure Name Priority Date/Time Associated Diagnosis Comments RECURRENT VAGINITIS (HTRX) Routine 06/19/2025 11:37 AM EDT HBSAG SCREEN Routine 06/19/2025 11:23 AM EDT RAPID PLASMA REAGIN, QUANT Routine 06/19/2025 11:23 AM EDT HIV AB/P24 AG WITH REFLEX Routine 06/19/2025 11:23 AM EDT TBH PREG QUANT HCG Routine 06/06/2025 6: 13 AM EDT ALL CBC WITH AUTO DIFF Routine 6:13 AM EDT ALL BASIC METABOLIC PANEL Routine [...] symptoms from Last 3 Months Results * RECURRENT VAGINITIS (HTRX) (06/19/2025 11:37 AM EDT) [facility] ATOPOBIUM VAGINAE 0 19.961 - 24.689 ppm 06/20/2025 6:40 AM EDT [facility] ATOPOBIUM VAGINAE Not Detected 19.961 - 24.689 ppm 06/20/2025 6:40 AM EDT [facility] BVAB 2,3 (BACTERIAL VAGINOSIS ASSOCIATED BACTERIA 2, 3); MOBILUNCUS SPP 0 19.961 - 24.689 ppm 06/20/2025 6:40 AM EDT [facility] BVAB 2,3 (BACTERIAL VAGINOSIS ASSOCIATED BACTERIA 2, 3); MOBILUNCUS SPP Not Detected 19.961 - 24.689 ppm 06/20/2025 6:40 AM EDT [facility] NINA ALBICANS, PARAPSILOSIS, TROPICALIS 0 23.000 - 30.347 ppm 06/20/2025 6:40 AM EDT [facility] NINA ALBICANS, PARAPSILOSIS, TROPICALIS Not Detected 23.000 - 30.347 ppm 06/20/2025 6:40 AM EDT [facility] NINA GLABRATA 0 23.000 - 31.618 ppm 06/20/2025 6:40 AM EDT [facility] NINA GLABRATA Not Detected 23.000 - 31.618 ppm 06/20/2025 6:40 AM EDT [facility] NINA KRUSEI 0 23.000 - 30.873 ppm 06/20/2025 6:40 AM EDT [facility] NINA KRUSEI Not Detected 23.000 - 30.873 ppm 06/20/2025 6:40 AM EDT [facility] CHLAMYDIA TRACHOMATIS 0 23.000 - 31.586 ppm 06/20/2025 6:40 AM EDT [facility] CHLAMYDIA TRACHOMATIS Not Detected 23.000 - 31.586 ppm 06/20/2025 6:40 AM EDT [facility] GARDNERELLA VAGINALIS 0 19.961 - 24.689 ppm 06/20/2025 6:40 AM EDT [facility] GARDNERELLA VAGINALIS Not Detected 19.961 - 24.689 ppm 06/20/2025 6:40 AM EDT [facility] MEGASPHAERA (TYPES 1, 2) 0 19.961 - 24.689 ppm 06/20/2025 6:40 AM EDT [facility] MEGASPHAERA (TYPES 1, 2) Not Detected 19.961 - 24.689 ppm 06/20/2025 6:40 AM EDT [facility] NEISSERIA GONORRHOEAE 0 23.000 - 32.587 ppm 06/20/2025 6:40 AM EDT [facility] NEISSERIA GONORRHOEAE Not Detected 23.000 - 32.587 ppm 06/20/2025 6:40 AM EDT [facility] TRICHOMONAS VAGINALIS 0 23.000 - 31.995 ppm 06/20/2025 6:40 AM EDT [facility] TRICHOMONAS VAGINALIS Not Detected 23.000 - 31.995 ppm 06/20/2025 6:40 AM EDT [facility] MYCOPLASMA GENITALIUM 0 19.961 - 24.689 ppm 06/20/2025 6:40 AM EDT [facility] MYCOPLASMA GENITALIUM Not Detected 19.961 - 24.689 ppm 06/20/2025 6:40 AM EDT [facility] Tissue 06/19/2025 11:3 7 AM EDT 06/20/2025 1:52 AM EDT us Anna Manzanares NP LAB BLOOD ORDERABLES Final Re sult [facility] [address] [id number] * HBSAG SCREEN (06/19/2025 11:23 AM EDT) [facility] HBSAG SCREEN Negative Negative [facility] Comment: Performed at: [address] [id number] Elevator Constructor Electric: Renzo Garcia PhD, Phone: [phone] 06/19/2025 11:2 3 AM EDT 06/19/2025 11:24 AM EDT Narrative CLINISYAR - 06/20/2025 1:08 PM EDT Anna Manzanares NP LAB BLOOD ORDERABLES Final Re sult Performing Organization Address [facility] Co de Phone Number [facility] * RAPID PLASMA REAGIN, QUANT (06/19/2025 11:23 AM EDT) [facility] RAPID PLASMA REAGIN, QUANT Non Reactive NonRea<1: 1 titer [facility] Comment: Please Note: This test does not meet current guidelines for screening and diagnosis of syphilis. This test is intended for following treatment response in patients being treated for syphilis infection. To screen for syphilis infection, a reflex cascade that includes both RPR and a treponema-specific assay should be utilized, such as Treponema pallidum (Syphilis) Screening [place] (368709) or Rapid Plasma Reagin (RPR) Test With Reflex to Quantitative RPR and Confirmatory Treponema pallidum Antibodies ([id number]). Performed at: [address] [id number] Elevator Constructor Electric: Renzo Garcia PhD, Phone: [phone] 06/19/2025 11:2 3 AM EDT 06/19/2025 11:24 AM EDT Narrative CLINISYAR - 06/20/2025 1:08 PM EDT Anna Manzanares NP LAB BLOOD ORDERABLES Final Re sult Performing Organization Address [facility]/ZIP Co de Phone Number [facility] * HIV AB/P24 AG WITH REFLEX (06/19/2025 11:23 AM EDT) [facility] HIV AB/P24 AG SCREEN Non Reactive Non Reactive TB Comment: HIV-1/HIV-2 antibodies and HIV-1 p24 antigen were NOT detected. There is no laboratory evidence of HIV infection. HIV Negative Performed at: [address] [id number] Elevator Constructor Electric: Renzo Garcia PhD, Phone: [phone] 06/19/2025 11:2 3 AM EDT 06/19/2025 11:24 AM EDT Narrative CLINISYNC - 06/20/2025 5:07 AM EDT Anna Manzanares OIL BURNER TECHNICIAN LAB BLOOD ORDERABLES Final Re sult [facility] * TBH PREG QUANT HCG (06/06/2025 6:13 AM EDT) [facility] HCG QUANTITATIVE <1 mIU/mL TB Comment: 5-50 0.2-1 WEEK 50-500 1-2 WEEKS 100-5,000 2-3 WEEKS 500-10,000 3-4 WEEKS 1,000-50,000 4-5 WEEKS 10,000-100,000 5-6 WEEKS 15,000-200,000 6-8 WEEKS 10,000-100,000 2-3 MONTHS 06/06/2025 6:13 AM EDT 06/06/2025 6:15 AM EDT Narrative CLINISYNC - 06/06/2025 6:41 AM EDT us Arun Lee DO CLINISYNC Final Result [facility] * (ABNORMAL) ALL CBC WITH AUTO DIFF (06/06/2025 6:13 AM EDT) Only the most recent of2 resultswithin the time period is included. [facility] WBC 7.4 4.0 - 11.0 10 3/uL TBH TB RBC 4.97 4.20 - 5.40 10 6/uL TB TB HGB 13.1 12.0 - 16.0 g/dL TBH TBH HCT 40.3 36.0 - 48.0 % TBH TBH MCV 81.1 81.0 - 99.0 fL TBH TBH MCH 26.4(L) 26.7 - 34.0 pg TBH TBH MCHC 32.5 29.9 - 35.2 g/dL TBH TBH RDW 14.4 11.0 - 15.0 % TBH TBH PLT 361 150 - 450 10 3/uL TBH TBH MPV 9.4(L) 9.5 - 13.5 fL TBH NEUTROPHILS PERCENT AUTO 61.7 43.0 - 75.0 % TBH LYMPHOCYTES PERCENT AUTO 29.1 20.5 - 60.0 % TBH MONOCYTES PERCENT AUTO 7.2 1.7 - 12.0 % TBH TBH EO % 1.2 0.9 - 7.0 % TBH BASOPHILS PERCENT AUTO 0.7 0.2 - 2.0 % TBH IMMATURE GRANULOCYTES PCT AUTO 0.1 0.0 - 0.5 % TBH NEUTROPHILS ABSOLUTE AUTO 4.6 1.4 - 6.5 10 3/uL TBH LYMPHOCYTES ABSOLUTE AUTO 2.2 1.2 - 3.8 10 3/uL TBH MONOCYTES ABSOLUTE AUTO 0.5 0.3 - 0.8 10 3/uL TBH TBH EO # 0.1 0.0 - 0.7 10 3/uL TBH BASOPHILS ABSOLUTE AUTO 0.1 0.0 - 0.1 10 3/uL TBH IMMATURE GRANULOCYTES ABS AUTO 0.01 0.00 - 0.03 10 3/uL TBH 06/06/2025 6:13 AM EDT 06/06/2025 6:15 AM EDT Narrative CLINISYNC - 06/06/2025 6:24 AM EDT us Arun Cardonao DO CLINISYNC Final Result [facility] * SRMCOH PROTHROMBIN TIME INR W/O COUM (05/27/2025 10:57 AM EDT) PROTHROMBIN TIME 11.6 9.0 - 11.6 sec TB TB INR 1.11 TB Comment: DESIRED INR: 2.0-3.0 CONDITIONS NOT LISTED BELOW 2.5-3.5 FOR PROSTHETIC HEART VALVE REPLACEMENT 2.5-3.5 RECURRENT THROMBOSIS 05/27/2025 10:5 7 AM EDT 05/27/2025 10:59 AM EDT Narrative CLINISYNC - 05/27/2025 11:17 AM EDT [facility] [place] [place] Jesus DO CLINISYNC Final Result [facility] * CCF APTT (05/27/2025 10:57 AM EDT) PARTIAL THROMBOPLASTIN TIME 29.6 22.3 - 36.2 sec TB 05/27/2025 10:5 7 AM EDT 05/27/2025 10:59 AM EDT Narrative CLINISYNC - 05/27/2025 11:17 AM EDT [facility] [place] [place] Jesus DO CLINISYNC Final Result Performing Organization Address [facility] Co de Phone Number [facility] * ALL BASIC METABOLIC PANEL (05/27/2025 10:57 AM EDT) SODIUM 136 136 - 145 mmol/L TBH POTASSIUM 4.0 3.5 - 5.1 mmol/L TBH CHLORIDE 106 98 - 107 mmol/L TBH CARBON DIOXIDE 25.5 21.0 - 32.0 mmol/L TBH ANION GAP 8.5 TBH GLUCOSE 84 74 - 106 mg/dL TB BLOOD UREA NITROGEN 10.0 7.0 - 18.0 mg/dL TBH CREATININE 0.71 0.55 - 1.02 mg/dL TBH TBH EGFR-AF [place] >60 >=60 mL/min/1.7 3m 2 TBH TBH EGFR-NON AF [place] >60 >=60 mL/min/1.7 3m 2 TBH BUN CREATININE RATIO 14.1 TBH CALCIUM 9.0 8.5 - 10.1 mg/dL TB 05/27/2025 10:5 7 AM EDT 05/27/2025 10:59 AM EDT Narrative CLINISYNC - 05/27/2025 11:22 AM EDT Arun Cardonao DO CLINISYNC Final Result Performing Organization Address [facility]/ZIP Co de Phone Number [facility] * (ABNORMAL) ALL LIPID PROFILE (FASTING) (05/20/2025 [...] Narrative CLINISYNC - 05/20/2025 10:23 AM EDT Arun Cardonao DO CLINISYNC Final Result Performing Organization Address [facility]/ZIP Co de Phone Number [facility] * TSH ([facility]) (04/09/2025 10:33 AM EDT) TSH 1.30 0.49 - 4.67 uIU/mL [facility] Comment: PERFORMED AT [facility] [address],[place] [address] 04/09/2025 10:3 3 AM EDT 04/09/2025 10:34 AM EDT Anna Manzanares OIL BURNER TECHNICIAN LAB BLOOD ORDERABLES Final Re sult BLUE [...] TYPE AUTOMATED DIFFERENTIAL [facility] Comment: PERFORMED AT [facility] [address],[place] [address] 04/09/2025 10:3 3 AM EDT 04/09/2025 10:34 AM EDT us Anna Manzanares OIL BURNER TECHNICIAN LAB BLOOD ORDERABLES Final Re sult [facility] * APTT (04/09/2025 10:33 AM EDT) APTT 32 26 - 37 sec [facility] Comment: PERFORMED AT [address] [place] [address] 04/09/2025 10:3 3 AM EDT 04/09/2025 10:34 AM EDT us Anna Manzanares OIL BURNER TECHNICIAN LAB BLOOD ORDERABLES Final Re sult Performing Organization Address [facility] Co de Phone Number [facility] * (ABNORMAL) Protime-INR (04/09/2025 10:33 AM EDT) PROTIME 15.1(H) 9.8 - 13.2 sec [facility] INR 1.3(H) 0.9 - 1.2 NA [facility] Comment: PERFORMED AT [address] [place] [address] 04/09/2025 10:3 3 AM EDT 04/09/2025 10:34 AM EDT us Anna Manzanares OIL BURNER TECHNICIAN LAB BLOOD ORDERABLES Final Re sult Performing Organization Address [facility] de Phone Number [facility] * T4, free (04/09/2025 10:33 AM EDT) FREE T4 0.93 0.61 - 1.60 ng/dL [facility] Comment: PERFORMED AT [facility] [address],[place] [address] 04/09/2025 10:3 3 AM EDT 04/09/2025 10:34 AM EDT us Anna Manzanares OIL BURNER TECHNICIAN LAB BLOOD ORDERABLES Final Re sult Performing Organization Address [facility] de Phone Number [facility] * US Pelvis [...] II, MD, PHD at 10-Apr-2025 09:47:18 AM [facility] Procedure Note Candi Chadwick [...] CANDI CHADWICK II, MD, PHD 09:47:18 AM [facility] us Anna Manzanares NP IMG US PROCEDURES Final Resul t from Last 3 Months Insurance [employer]
--- OUTSIDE RECORDS SUMMARY | 2025-06-20 13:10 | XMS_ITS | Encounter Summary ---
Author Organization [facility] Address [address] [place] [address] Care Team Providers Care Research Dairy Farm Supervisor Name Role Phone Unavailable Primary Care Provider Unavailabl e Encounter Details Date Type Department Care Team (Late st Contact Info) Description 05/23/2025 Abstract [facility] [address] [place] [phone] Isela Yang MA Social History Tobacco Use Types Packs/Day Years Used Date Smoking Tobacco: Never Assessed Comments Unknown Sex and Gender Information Value Date Recorded Sex Assigned at Not on file Legal Sex Female 6:56 PM EDT Gender Identity Female 03/30/2025 10:00 PM EDT Sexual Orientation Straight 03/30/2025 10 :00 PM EDT documented as of this encounter Plan of Treatment Not on file documented as of this encounter Visit Diagnoses Not on filedocumented in this encounter
--- OUTSIDE RECORDS SUMMARY | 2025-06-20 13:10 | XMS_ITS | Encounter Summary ---
Author Organization [facility] Address [address] [place] [address] Care Team Providers Care Professional Development Director Name Role Phone Unavailable Primary Care Provider Unavailabl e Encounter Details Date Type Department Care Team (Late st Contact Info) Description 05/07/2025 Abstract [facility] [address] [phone] Arun Lee DO [address] [place] [address] Social History Tobacco Use Types Packs/Day Years [...]
--- OUTSIDE RECORDS SUMMARY | 2025-06-20 13:11 | XMS_ITS | Encounter Summary ---
Author Organization [facility] Address [address] [place] [address] Care Team Providers Care Digital Content Producer Name Role Phone Unavailable Primary Care Provider Unavailabl e Encounter Details Date Type Department Care Team (Late st Contact Info) Description 04/23/2025 Abstract [facility] [address] [place] [phone] Isela Yang MA Social History Tobacco Use [...]
--- OUTSIDE RECORDS SUMMARY | 2025-06-20 13:11 | XMS_ITS | Encounter Summary ---
Author Organization [facility] Address [address] [place] [address] Care Team Providers Care Financial Manager Name Role Phone Unavailable Primary Care Provider Unavailabl e Encounter Details Date Type Department Care Team (Late st Contact Info) Description 06/19/2025 BamGame Blisterso flowsheet [facility] [address] [place] [address] Anna Manzanares, BANG [address] [place] [address] Social History Tobacco Use Types Packs/Day Years [...]
--- OUTSIDE RECORDS SUMMARY | 2025-06-20 13:11 | XMS_ITS | Encounter Summary ---
Author Organization [facility] Address [address] [place] [address] Care Team Providers Care Social Media Content Manager Name Role Phone Unavailable Primary Care Provider Unavailabl e Encounter Details Date Type Department Care Team (Late st Contact Info) Description 06/06/2025 Abstract [facility] [address] [facility] [place] [address] Arun Lee DO [address] [place] [address] Social History Tobacco Use Types Packs/Day Years [...]
--- OUTSIDE RECORDS SUMMARY | 2025-06-20 13:11 | XMS_ITS | Encounter Summary ---
Author Organization [facility] Address [address] [place] [address] Care Team Providers Care Practice Lead Name Role Phone Unavailable Primary Care Provider Unavailabl e Encounter Details Date Type Department Care Team (Late st Contact Info) Description 06/19/2025 Clinisync Result Encounter NOMS External Department Unsolicited Anna Manzanares, BANG [address] [place] [address] [place] [address] Social History Tobacco Use Types Packs/Day [...] on file documented as of this encounter Procedures Procedure Name Priority Date/Time Associated Diagnosis Comments HBSAG SCREEN Routine 06/19/2025 11:23 AM EDT RAPID PLASMA REAGIN, QUANT Routine 06/19/2025 11:23 AM EDT HIV AB/P24 AG WITH REFLEX Routine 06/19/2025 11:23 AM EDT documented in this encounter Results * HBSAG SCREEN (06/19/2025 11:23 AM EDT) HBSAG SCREEN Negative Negative [facility] Comment: Performed at: [address] [id number] Director Index: Renzo Garcia PhD, Phone: [phone] 06/19/2025 11:2 3 AM EDT 06/19/2025 11:24 AM EDT Narrative CLINISYNC - 06/20/2025 1:08 PM EDT Anna Manzanares NP LAB BLOOD ORDERABLES Final Re sult Performing Organization Address [facility]/ZIP Co de Phone Number [facility] * RAPID PLASMA REAGIN, QUANT (06/19/2025 11:23 AM EDT) Pathologist [facility] RAPID PLASMA REAGIN, QUANT Non Reactive NonRea<1: 1 titer [facility] Comment: Please Note: This test does not meet current guidelines for screening and diagnosis of syphilis. This test is intended for following treatment response in patients being treated for syphilis infection. To screen for syphilis infection, a reflex cascade that includes both RPR and a treponema-specific assay should be utilized, such as Treponema pallidum (Syphilis) Screening [place] (129491) or Rapid Plasma Reagin (RPR) Test With Reflex to Quantitative RPR and Confirmatory Treponema pallidum Antibodies ([id number]). Performed at: [address] [id number] Director Index: Renzo Garcia PhD, Phone: [phone] 06/19/2025 11:2 3 AM EDT 06/19/2025 11:24 AM EDT Narrative CLINISYNV - 06/20/2025 1:08 PM EDT Anna Manzanares NP LAB BLOOD ORDERABLES Final Re sult Performing Organization Address [facility]/ZIP Co de Phone Number [facility] * HIV AB/P24 AG WITH REFLEX (06/19/2025 11:23 AM EDT) HIV AB/P24 AG SCREEN Non Reactive Non Reactive [facility] Comment: HIV-1/HIV-2 antibodies and HIV-1 p24 antigen were NOT detected. There is no laboratory evidence of HIV infection. HIV Negative Performed at: - [address] [id number] Director Index: Renzo Garcia PhD, Phone: [phone] 06/19/2025 11:2 3 AM EDT 06/19/2025 11:24 AM EDT Narrative CLINISYNC - 06/20/2025 5:07 AM EDT us Anna Manzanares NP LAB BLOOD ORDERABLES Final Re sult [facility] documented in this encounter Visit Diagnoses Not on filedocumented in this encounter
--- OUTSIDE RECORDS SUMMARY | 2025-06-20 13:11 | XMS_ITS | Patient Health Record ---
Author Organization The [facility] in [place] Address [address] [place] [address] Care Team Providers Care Corporate Learning Consultant Name Role Phone Yin Truong Primary Care Provider Maite Newell Unavailable [phone] Results Component Value Reference Range Notes CT angio abdomen pelvis (Not yet reviewed by provider) Interpretation: Performing Lab: Notes/Report: Source Facility: [place] [address] CT Scan Report Signed Patient: HARJINDER FOSTER MR#: [id number] : 1975 Acct:[id number] Age/Sex: 49 / F ADM Date: 04/28/25 Loc: CT Attending Dr: Maite Winchester M.D. Ordering Physician: Maite Winchester M.D. Date of Service: 04/28/25 Procedure(s): CT angio abdomen pelvis Accession Number(s): [id number] cc: Yin Bell WEIGHER [employer]OY [place] [id number] Patient Name: HARJINDER FOSTER MRN: [id number] date: 1975 Sex: F Assigned Patient Location: CT Current Patient Location: CT Accession/Order Number: [id number] Exam Date: 04/28/2025 12:05 Report Date: 04/28/2025 [...] Waters M.D. 04/28/2025 12:19 PM Dictation Location: [place] [address] Electronically authenticated by: [id number] Y Date: 04/28/2025 12:19 Dictated By: Jeanne Waters M.D. Signed By: 04/28/25 1221 DD/ 1219 TD/TT: Paramedic Rn: The [address] [address] [address] Scan Report Signed Patient: HARJINDER FOSTER MR#: [id number] : 1975 Acct:[id number] Age/Sex: 49 / F ADM Date: 04/28/25 Loc: CT Attending Dr: Ari Winchester M.D. Ordering Physician: Maite Winchester M.D. Date of Service: 04/28/25 Procedure(s): CT ang io abdomen pelvis Accession Number(s): [id number] cc: Yin Bell WEIGHER ALLOY [address] [address] Patient Name: HARJINDER FOSTER MRN: [id number] date: 1975 Sex: F Assigned Patient Location: CT Current Patient Location: CT Accession/Order Numb er: [id number] Exam Date: 04/28/2025 12:05 Report Date: 04/28/2025 [...] Waters M.D. 04/28/2025 12:19 PM Dictation Location: [place] [address] Electronically authenticated by: [id number] Y Date: 04/28/2025 12:19 Dictated By: Jeanne Waters M.D. Signed By: 04/28/25 1221 DD/ 1219 TD/TT: Paramedic Rn: CBC AUTO DIFF (Not yet revie wed by provider) Interpretation: Performing Lab: Notes/Report: [facility] , White Blood Count 7.4 4.0-11.0 10 [...] 3/uL Performing Lab: see note - [facility] LB IRON AND TIBC (Not yet revie wed by provider) Interpretation: Performing Lab: Notes/Report: [facility] , Iron 50.0 50.0-170.0 ug/dL Total Iron Binding Capacity 336.0 250.0-450.0 ug/dL Percent Iron Saturation 14.9 Performing Lab: see note - [facility] LB LAB TESTING (Not yet reviewe d by provider) Interpretation: Performing Lab: Notes/Report: [id number] Ferritin [facility] , Miscellaneous Test COMMENT . Test Ordered: [id number] Ferritin Ferritin 57 ng/mL CB [address] Man: Renzo Garcia PhD, Phone: [phone] Performed at: [facility] Reference Range: 15-150 [address] [place], [place] [id number] Performing Lab: see note - [facility] LB [...] Beta-2 Glycoprotein I Ab, IgM <9 0-[address] [place] [phone] Performed at: [facility] Result Units: GPI IgM units [address] Man: Renzo Garcia PhD, Phone: [phone] Thromb Haem 2006;4:295-306. The reference interval reflects [...] >80 Anticardiolipin Ab,IgM,Qn <9 0-12 MPL U/mL [address] [place] [id number] High Positive: >[address] Man: Renzo Garcia PhD, Phone: [phone] Negative: <13 Performed at: [facility] Indeterminate: 13 - 20 Low-Med Positive: >20 - 80 Performing Lab: see note - [facility] LAB [facility] (Not yet reviewe d by provider) Interpretation: Performing Lab: Notes/Report: [id number] Antiphosphatidylserine, IgG and IgM [facility] , Miscellaneous Test COMMENT . Antiphosphatidylserine IgG [id number] Man: Renzo Garcia PhD, Phone: [phone] Reference Range: 0-30 Antiphosphatidylserine IgM [address] [phone] Performed at: [facility] Test Ordered: [id number] Antiphosphatidylserine, IgG/IgM Performed at: [facility] [address] Man: Lyle Jefferson MD, Phone: [phone] Reference Range: 0-30 Performing Lab: see note - [facility] LB Reason For Referral No Information Encounters Encounter Location Date Provider Diagnosis [facility] [address] [place] [address] 04/15/2025 Maite Winchester [facility] [address] [place] [address] 05/20/2025 Maite Winchester Plan Of Treatment Pending Test Test Name Order Date CBC AUTO DIFF 05/01/2025 IRON AND TIBC 05/01/2025 LAB TESTING 05/01/2025 LAB TESTING 05/01/2025 CT angio abdomen pelvis 04/28/2025 Beta-2 Glycoprotein I Ab,G,A,M Anticardiolipin Ab, IgG/M, Qn 05/01/2025 Next Appt Details Provider Name:Maite Winchester , 12/23/2025 10:30:00 AM, [address] [place], [address], Insurance Providers Payer Name Payer Address Payer Phone Subscriber Number Group Number Insured Name Patient Relationship to Insured Coverage Start Date Coverage End Date [employer]ICA[employer] [address] [place] [address] [id number] Harjinder Foster Self - patient is the insured
--- OUTSIDE RECORDS SUMMARY | 2025-06-20 13:11 | XMS_ITS | Encounter Summary ---
Author Organization [facility] Address [address] [place] [address] Care Team Providers Care Wood Type Cutter Name Role Phone Unavailable Primary Care Provider Unavailabl e Encounter Details Date Type Department Care Team (Late st Contact Info) Description 06/06/2025 Clinisync Result Encounter [facility] External Department Unsolicited Arun Lee, DO [address] [facility] [place] [address] Social History Tobacco Use Types Packs/Day Years [...] Procedure Name Priority Date/Time Associated Diagnosis Comments [facility] PREG QUANT HCG Routine 06/06/2025 6: 13 AM EDT ALL CBC WITH AUTO DIFF Routine 06/06/2025 6:13 AM EDT documented in this encounter Results * [facility] PREG QUANT HCG (06/06/2025 6:13 AM EDT) HCG QUANTITATIVE <1 mIU/mL [facility] Comment: 5-50 0.2-1 WEEK 50-500 1-2 WEEKS 100-5,000 2-3 WEEKS 500-10,000 3-4 WEEKS 1,000-50,000 4-5 WEEKS 10,000-100,000 5-6 WEEKS 15,000-200,000 6-8 WEEKS 10,000-100,000 2-3 MONTHS 06/06/2025 6:13 AM EDT 06/06/2025 6:15 AM EDT Narrative [facility] - 06/06/2025 6:41 AM EDT us Arun Jesus DO [facility] Final [facility] ([facility]NORMAL) ALL CBC WITH AUTO DIFF (06/06/2025 6:13 AM EDT) [facility] TB WBC 7.4 4.0 - 11.0 10 3/uL [facility] TB RBC 4.97 4.20 - 5.40 10 6/uL [facility] TB HGB 13.1 12.0 - 16.0 g/dL TB TB HCT 40.3 36.0 - 48.0 % TB TB MCV 81.1 81.0 - 99.0 fL TB TB MCH 26.4(L) 26.7 - 34.0 pg [facility] TB MCHC 32.5 29.9 - 35.2 g/dL TB TB RDW 14.4 11.0 - 15.0 % [facility] TB PLT 361 150 - 450 10 3/uL TB TB MPV 9.4(L) 9.5 - 13.5 fL [facility] [...] Arun Cardonao DO [facility] Final Result [facility] documented in this encounter Visit Diagnoses Not on filedocumented in this encounter
--- OUTSIDE RECORDS SUMMARY | 2025-06-20 13:11 | XMS_ITS | Encounter Summary ---
Author Organization [facility] Address [address] [place] [address] Care Team Providers Care English Faculty Member Name Role Phone Unavailable Primary Care Provider Unavailabl e Encounter Details Date Type Department Care Team (Latest Contact Info) Description 06/19/2025 Travel Social History Tobacco Use Types Packs/Day [...]
== END 2025-05-20 13:09 | disposition home or self-care (01) ==
PROVIDERS: Visit Provider Obstetrics & Gynecology
DX: D23.10 Other benign neoplasm of skin of unspecified eyelid, including canthus (principal)

== ENCOUNTER 2025-05-27 09:37 | Outpatient (OUT) | payer OTHER, SELFPAY ==
--- OUTSIDE RECORDS SUMMARY | 2025-04-15 11:15 | XMS_ITS ---
Author Organization [facility] [place] Address [address] [place] [address] Care Team Providers Care Furniture Duster Name Role Phone Yin Truong Primary Care Provider Maite Newell [phone] REASON FOR VISIT New PT Hem Encounters Encounter Location Date Provider Diagnosis [facility] [address] [place] [address] 04/15/2025 Maite Winchester Plan Of Treatment Next Appt Details Provider Name:Maite Winchester , 12/23/2025 10:30:00 AM, [address] [place], [address], Progress Notes * Leann FOSTERDOB:1974 (49 yo F)Acc No.[id number]:04/15/2025 UNLOCKED PROGRESS NOTE Progress Notes Patient: Ramon MONTOYA Leann Kilgore Provider: Jeannette Winchester M.D. :1975 A ge:49 Y S ex:Female Date:04/15/2025 Address:[address] [place], [place] [phone] Pcp:ARIAS Johnson Subjective: * Chief Complaints: * 1 . New PT Hem. * Medical History: Objective: * Vitals: Assessment: Plan: * Treatment: * * Electronic signature of Antonio Winchester MD, [id number] on 05/27/2025 at 09:40 AM EDT Sign off status: Pending Visit Status: P EN (Pending) * Provider: Jeannette Winchester M.D. Date: 0 04/15/2025 Generated for Celena goldstein/Shiloh/Romina on: 0 05/27/2025 09:40 AM EDT
--- OUTSIDE RECORDS SUMMARY | 2025-05-20 06:00 | XMS_ITS ---
Author Organization The [facility] in [place] Address [address] [place] [address] Care Team Providers Care Linux Network Engineer Name Role Phone Yin Truong Primary Care Provider Maite Newell Unavailable [phone] REASON FOR VISIT MD Encounters Encounter Location Date Provider Diagnosis [facility] [address] [place] [address] 05/20/2025 Maite Winchester Plan Of Treatment Next Appt Details Provider Name:Maite Winchester , 12/23/2025 10:30:00 AM, [address] [place], [address], Progress Notes * Leann FOSTERDOB:1974 (49 yo F)Acc No.[id number]:05/20/2025 UNLOCKED PROGRESS NOTE Progress Notes Patient: Ramon MONTOYA Leann Kilgore Provider: Jeannette Winchester M.D. :1975 A ge:49 Y S ex:Female Date:05/20/2025 Address:[address] [place], [place] [id number] Pcp:ARIAS Johnson Subjective: * Chief Complaints: * 1 . MD. * Medical History: Objective: * Vitals: Assessment: Plan: * Treatment: * * Electronic signature of Antonio Winchester MD, [id number] on 05/27/2025 at 09:40 AM EDT Sign off status: Pending Visit Status: C ONFPHONE (Voice) * Provider: Jeannette Winchester M.D. Date: 0 05/20/2025 Generated for Celena goldstein/Shiloh/Romina on: 0 05/27/2025 09:40 AM EDT
--- OUTSIDE RECORDS SUMMARY | 2025-05-27 09:40 | XMS_ITS | Patient Health Record ---
Author Organization The [facility] in [place] Address [address] [place] [address] Care Team Providers Care Transit Planning Manager Name Role Phone Yin Truong Primary Care Provider Unavaila bertram YeboahMaite lanier Unavailable [phone] Results Component Value Reference Range Notes CBC AUTO DIFF (Not yet revie wed by provider) Interpretation: Performing Lab: Notes/Report: [facility] , White Blood Count 7.4 4.0-11.0 10 [...] 10 3/uL Performing Lab: see note - [facility] LB Anticardiolipin Ab, IgG/M, Q n (Not yet reviewed by provider) Interpretation: Performing Lab: Notes/Report: [facility] , Anticardiolipin Ab,IgG,Qn <9 0-14 GPL U/mL Indeterminate: 15 - 20 Low-Med Positive: >20 - 80 Negative: <15 High Positive: >80 Anticardiolipin Ab,IgM,Qn <9 0-12 MPL U/mL [address] [place] [phone] High Positive: >80 Construction Skills Teacher: Renzo Garcia PhD, Phone: [phone] Negative: <13 Performed at: [facility] Indeterminate: 13 - 20 Low-Med Positive: >20 - 80 Performing Lab: see note - [facility] LB Beta-2 Glycoprotein I Ab,G,A ,M (Not yet reviewed by provider) Interpretation: Performing Lab: Notes/Report: [facility] , Beta-2 Glycoprotein I Ab, IgG <9 0-20 clinically significant result in accordance with the interval, which is thought to represent a potentially criteria for definitive antiphospholipid syndrome (APS). J International Consensus Statement on the classification Result Units: GPI IgG units Thromb Haem 2006;4:295-306. The reference interval reflects a 3SD or 99th percentile Beta-2 Glycoprotein I Ab, IgA <9 0-25 Thromb Haem 2006;4:295-306. criteria for definitive antiphospholipid syndrome (APS). J interval, which is thought to represent a potentially Result Units: GPI IgA units clinically significant result in accordance with the The reference interval reflects a 3SD or 99th percentile International Consensus Statement on the classification Beta-2 Glycoprotein I Ab, IgM <9 0-[address] [place] [id number] Performed at: [facility] Result Units: GPI IgM units Construction Skills Teacher: Renzo Garcia PhD, Phone: [phone] Thromb Haem 2006;4:295-306. The reference interval reflects a 3SD or 99th percentile interval, which is thought to represent a potentially clinically significant result in accordance with the criteria for definitive antiphospholipid syndrome (APS). J International Consensus Statement on the classification Performing Lab: see note LC - [facility] LB LAB TESTING (Not yet reviewe d by provider) Interpretation: Performing Lab: Notes/Report: [id number] Ferritin [facility] , Miscellaneous Test COMMENT . Test Ordered: [id number] Ferritin Ferritin 57 ng/mL CB Construction Skills Teacher: Renzo Garcia PhD, Phone: [phone] Performed at: - [facility] Reference Range: 15-150 [address] [place], [place] [id number] Performing Lab: see note - [facility] LB IRON AND TIBC (Not yet revie wed by provider) Interpretation: Performing Lab: Notes/Report: [facility] , Iron 50.0 50.0-170.0 ug/dL Total Iron Binding Capacity 336.0 250.0-450.0 ug/dL Percent Iron Saturation 14.9 Performing Lab: see note - [facility] LB CT angio abdomen pelvis (Not yet reviewed by provider) Interpretation: Performing Lab: Notes/Report: Source Facility: [place] [address] CT Scan Report Signed Patient: HARJINDER FOSTER MR#: [id number] : 1975 Acct:[id number] Age/Sex: 49 / F ADM Date: 04/28/25 Loc: CT Attending Dr: Maite Winchester M.D. Ordering Physician: Maite Winchester M.D. Date of Service: 04/28/25 Procedure(s): CT angio abdomen pelvis Accession Number(s): [id number] cc: Yin Bell BLIND SLAT STAPLING MACHINE OPERATOR [place] [address] Patient Name: HARJINDER FOSTER MRN: [id number] date: 1975 Sex: F Assigned Patient Location: CT Current Patient Location: CT Accession/Order Number: [id number] Exam Date: 04/28/2025 12:05 Report Date: 04/28/2025 [...] Waters M.D. 04/28/2025 12:19 PM Dictation Location: [place] [address] Electronically authenticated by: [id number] Y Date: 04/28/2025 12:19 Dictated By: Jeanne Waters M.D. Signed By: 04/28/25 1221 DD/ 1219 TD/TT: Clinical Document Improvement Educator: The [address] [address] [address] Scan Report Signed Patient: HARJINDER FOSTER MR#: [id number] : 1975 Acct:[id number] Age/Sex: 49 / F ADM Date: 04/28/25 Loc: CT Attending Dr: Ari Winchester M.D. Ordering Physician: Maite Winchester M.D. Date of Service: 04/28/25 Procedure(s): CT ang io abdomen pelvis Accession Number(s): [id number] cc: Yin Bell NP [place] [id number] Patient Name: HARJINDER FOSTER MRN: [id number] date: 1975 Sex: F Assigned Patient Location: CT Current Patient Location: CT Accession/Order Numb er: [id number] Exam Date: 04/28/2025 12:05 Report Date: 04/28/2025 [...] Waters M.D. 04/28/2025 12:19 PM Dictation Location: [place] [address] Electronically authenticated by: [id number] Y Date: 04/28/2025 12:19 Dictated By: Jeanne Waters M.D. Signed By: 04/28/25 1221 DD/ 1219 TD/TT: Clinical Document Improvement Educator: LAB TESTING (Not yet reviewe d by provider) Interpretation: Performing Lab: Notes/Report: [id number] Antiphosphatidylserine, IgG and IgM [facility] , Miscellaneous Test COMMENT . Antiphosphatidylserine IgG 12 Units [address] [place], [place] [id number] Construction Skills Teacher: Renzo Garcia PhD, Phone: [phone] Reference Range: 0-30 Antiphosphatidylserine IgM 23 Units BN [address] [place], [place] [id number] Performed at: [facility] Test Ordered: [id number] Antiphosphatidylserine, IgG/IgM Performed at: [facility] Construction Skills Teacher: Lyle Jefferson MD, Phone: [phone] Reference Range: 0-30 Performing Lab: see note - [facility] LB Reason For Referral No Information Encounters Encounter Location Date Provider Diagnosis [facility] [address] [place] [address] 04/15/2025 Maite Winchester [facility] [address] [place] [address] 05/20/2025 Maite Winchester Plan Of Treatment Pending Test Test Name Order Date CBC AUTO DIFF 05/01/2025 IRON AND TIBC 05/01/2025 LAB TESTING 05/01/2025 LAB TESTING 05/01/2025 CT angio abdomen pelvis 04/28/2025 Beta-2 Glycoprotein I Ab,G,A,M Anticardiolipin Ab, IgG/M, Qn 05/01/2025 Next Appt Details Provider Name:Maite Winchester , 12/23/2025 10:30:00 AM, [address] [place], [address], Insurance Providers Payer Name Payer Address Payer Phone Subscriber Number Group Number Insured Name Patient Relationship to Insured Coverage Start Date Coverage End Date [employer] MEDICAID [address] [place] [address] [phone] [id number] Harjinder Foster Self - patient is the insured
--- OUTSIDE RECORDS SUMMARY | 2025-05-27 09:40 | XMS_ITS | Encounter Summary ---
Author Organization [facility] Address [address] [place] [address] Care Team Providers Care Lead Burner Helper Name Role Phone Unavailable Primary Care Provider Unavailabl e Encounter Details Date Type Department Care Team (Late st Contact Info) Description 05/23/2025 Abstract [facility] [address] [place] [address] Isela Yang MA Social History Tobacco [...] Description 06/19/2025 10:00 AM EDT Office Visit LINDSAY GAR[facility] [address] [place] [address] Anna Manzanares, BANG [address] [facility] [place] [address] documented as of this encounter Visit Diagnoses Not on filedocumented in this encounter
--- OUTSIDE RECORDS SUMMARY | 2025-05-27 09:40 | XMS_ITS | Encounter Summary ---
Author Organization [facility] Address [address] [place] [address] Care Team Providers Care Sanitary Inspector Name Role Phone Unavailable Primary Care Provider Unavailabl e Encounter Details Date Type Department Care Team (Late st Contact Info) Description 04/23/2025 Abstract [facility]AR[facility] [address] [place] [address] Isela Yang MA Social History Tobacco [...] AM EDT Office Visit LINDSAY GARBER [address] [place] [address] Anna Manzanares, BANG [address] [facility] [place] [address] documented as of this encounter Visit Diagnoses Not on filedocumented in this encounter
--- OUTSIDE RECORDS SUMMARY | 2025-05-27 09:40 | XMS_ITS | Clinical Summary ---
Author Organization [facility] Address [address] [place] [address] Care Team Providers Care Warp Dresser Name Role Phone Unavailable Primary Care Provider [...] Encounters Date Type Department Care Team Description 05/23/2025 Abstract [facility] Daniel GARBER [address] [place] [phone] Isela Yang MA 05/20/2025 Clinisync Result Encounter NOMS External Department Unsolicited Arun Lee DO 05/07/2025 1:30 PM EDT Procedure Visit [facility] Daniel GARBER [address] [place] [phone] Arun Lee DO Pre-op examination; Pelvic pain; Menorrhagia with regular cycle; Abnormal uterine bleeding (AUB); Squamous acanthoma of eyelid 05/07/2025 Abstract [facility] Daniel GARBER [address] [place] [phone] Arun Lee DO 05/05/2025 Telephone [facility] Daniel [address]ARBER [address] [place] [address] Felisha Greer MA 04/23/2025 Abstract [facility] Daniel [address] [address] [place] [address] Isela Yang MA 04/09/2025 9:00 AM EDT Ancillary Procedure [facility] Daniel GARBER [address] [place] [address] Abnormal uterine bleeding (AUB); Menorrhagia with regular cycle; Perimenopausal vasomotor symptoms 04/09/2025 External Result Encounter NOMS External Department Unsolicited Anna Manzanares NP 03/31/2025 2:30 PM EDT Office Visit [facility] Daniel GARBER [address] [place] [address] Arun Lee DO Menorrhagia with regular cycle (Primary Dx); Abnormal uterine bleeding (AUB); Perimenopausal vasomotor symptoms 03/31/2025 Bamboo flowsheet [facility] Daniel ALONSOGYTemi [address] [place] [address] Arun Lee DO 03/30/2025 Travel from Last [...] 06/19/2025 10:00 AM EDT Office Visit [facility] Daniel OBGYN [address] [place] [phone] Anna Manzanares, TECHNICIAN [employer]LECOMM[employer]ICATION SYSTEMS [address] [facility] [place] [phone] Procedures Procedure Name Priority Date/Time Associated Diagnosis Comments ALL LIPID PROFILE (FASTING) Routine 05/20/2025 9:53 AM EDT T4, FREE Routine 04/09/2025 10:33 AM EDT [...] symptoms from Last 3 Months Results * (ABNORMAL) ALL LIPID PROFILE (FASTING) (05/20/2025 9:53 AM EDT) TRIGLYCERIDES 86 <=150 mg/dL TBH CHOLESTEROL 207(H) <=200 mg/dL TBH HDL CHOLESTEROL 55 40 - 60 mg/dL [facility] Comment: > or =60 mg/dl - LOW CARDIOVASCULAR RISK <40 mg/dl - HIGH CARDIOVASCULAR RISK LDL CHOLESTEROL CALCULATED 135.0 mg/dL TB[facility] Comment: <100 mg/dl OPTIMAL 100-129 mg/dl NEAR OR ABOVE OPTIMAL 130-159 mg/dl BORDERLINE HIGH 160-189 mg/dl HIGH >190 mg/dl VERY HIGH VLDL CHOLESTEROL 17.2 mg/dL TBH CHOL HDL RATIO 3.8 TBH Comment: 3.3 - 4.4 LOW RISK 4.4 - 7.1 AVERAGE RISK 7.1 - 11.0 MODERATE RISK >11.0 HIGH RISK 05/20/2025 9:53 AM EDT 05/20/2025 9:53 AM EDT Narrative CLINISYNC - 05/20/2025 10:23 AM EDT us Arun Lee DO CLINISYNC Final Result Performing Organization Address City/[facility]/ZIP Co de Phone Number [facility] TB * TSH ([facility]) (04/09/2025 10:33 AM EDT) TSH 1.30 0.49 - 4.67 uIU/mL [facility] Comment: PERFORMED AT [facility] [address],[place] [address] 04/09/2025 10:3 3 AM EDT 04/09/2025 10:34 AM EDT us Anna Manzanares TECHNICIAN TELECOMMUNICATION SYSTEMS LAB BLOOD ORDERABLES Final Re sult [facility] [...] TYPE AUTOMATED DIFFERENTIAL [facility] Comment: PERFORMED AT [facility] [address],[place] [address] 04/09/2025 10:3 3 AM EDT 04/09/2025 10:34 AM EDT Anna Manzanares TECHNICIAN [employer]LECOMM[employer]ICATION SYSTEMS LAB BLOOD ORDERABLES Final Re sult [facility] * APTT (04/09/2025 10:33 AM EDT) APTT 32 26 - 37 sec [facility] Comment: PERFORMED AT [address] [place] [address] 04/09/2025 10:3 3 AM EDT 04/09/2025 10:34 AM EDT us Anna Manzanares TECHNICIAN [employer] LAB BLOOD ORDERABLES Final Re sult [facility] * (ABNORMAL) Protime-INR (04/09/2025 10:33 AM EDT) PROTIME 15.1(H) 9.8 - 13.2 sec [facility] INR 1.3(H) 0.9 - 1.2 NA [facility] Comment: PERFORMED AT [address] [place] [address] 04/09/2025 10:3 3 AM EDT 04/09/2025 10:34 AM EDT us Anna Manzanares TECHNICIAN [employer] LAB BLOOD ORDERABLES Final Re sult Performing Organization Address [facility]/ZIP Co de Phone Number [facility] * T4, free (04/09/2025 10:33 AM EDT) FREE T4 0.93 0.61 - 1.60 ng/dL [facility] Comment: PERFORMED AT [facility] [address],[place] [address] 04/09/2025 10:3 3 AM EDT 04/09/2025 10:34 AM EDT us Anna Manzanares TECHNICIAN [employer] LAB BLOOD ORDERABLES Final Re sult [facility] * US Pelvis w/ TV (04/09/2025 [...] II, MD, PHD at 10-Apr-2025 09:47:18 AM [facility] Procedure Note Candi Chadwick MD - [...] CANDI CHADWICK II, MD, PHD 09:47:18 AM [facility] Anna Manzanares NP IMG US PROCEDURES Final Resul t from Last 3 Months Insurance [employer] MEDICAID
--- OUTSIDE RECORDS SUMMARY | 2025-05-27 09:40 | XMS_ITS | Clinical Summary ---
Author Organization [facility] Address [address] [place], [place] [id number] Care Team Providers Care Surfacing Technician Name Role Phone Beti Rod HEADING SAW OPERATOR Primary Care Provider Allergies No known [...] N ot on file 09/24/2020 Data from: [email or web address] Last address used for calculation Not [...] PANEL (10/13/2017 4:55 PM EST) Pathologist [facility] Protein, Total 7.7 6.3 - 8.0 g/dL 10/13/2017 9:51 PM EST [facility] Albumin 4.1 3.9 - 4.9 g/dL 10/13/2017 9:51 PM EST [facility] Calcium 9.5 8.5 - 10.2 mg/dL 10/13/2017 9:51 PM EST [facility] Bilirubin, Total 0.3 0.2 - 1.3 mg/dL 10/13/2017 9:51 PM EST [facility] Alkaline Phosphatase 65 32 - 117 U/L 10/13/2017 9:51 PM [facility] AST 17 13 - 35 U/L 10/13/2017 9:51 PM [facility] Glucose 69(L) 74 - 99 mg/dL 10/13/2017 9:51 PM [facility] Comment: The [place] Diabetes Association (ADA) provides guidance for cutoff [...] Standards of Medical Care in Diabetes 2016, [place] Diabetes Association. Diabetes Care. 2016.39(Suppl 1). BUN 14 7 - 21 mg/dL 10/13/2017 9:51 PM [facility] Creatinine 0.75 0.58 - 0.96 mg/dL 10/13/2017 9:51 PM [facility] Sodium 141 136 - 144 mmol/L 10/13/2017 9:51 PM [facility] Potassium 3.8 3.7 - 5.1 mmol/L 10/13/2017 9:51 PM [facility] Chloride 101 97 - 105 mmol/L 10/13/2017 9:51 PM [facility] CO2 25 22 - 30 mmol/L 10/13/2017 9:51 PM [facility] Anion Gap 15 9 - 18 mmol/L 10/13/2017 9:51 PM [facility] ALT 21 7 - 38 U/L 10/13/2017 9:51 PM [facility] eGFR- >60 10/13/2017 9:51 PM [facility] eGFR-All Other Races >60 . 10/13/2017 9:51 PM [facility] Comment: eGFR (Estimated GFR) Units of [...] us Catrina Luciano MD LABORATORY Final Result [facility] [address] [place] [address] from Last 3 Months or Most Recently Relevant to Health Maintenance Care Teams Surfacing Technician Relationship Specialty Start Date End Date Beti Rod CNP [facility] [place] [address] [place] [address] PCP - General Family Medicine 09/26/17
--- OUTSIDE RECORDS SUMMARY | 2025-05-27 09:40 | XMS_ITS | Clinical Summary ---
Author Organization [employer] Address [id number] [address] [place] [address] Care Team Providers Care Funeral Professional Name Role Phone No Pcp, No Pcp [...] mg by mouth daily. 7 8 Active Active Problems Problem Noted Date Diagnosed Date DVT (deep venous thrombosis) 01/01/2025 Other acute pulmonary emboli sm, unspecified whether acute cor pulmonale present 12/31/2024 Drainage from wound 05/14/2018 Encounters Date Type Department Care Team Description 05/02/2025 12:23 PM EDT - 05/02/2025 11:59 PM EDT Hospital Encounter [facility] - Ultrasound [address] [place] [address] Urinary symptom or sign Discharge Disposition: Home [...] = 0.6 oz pur e alcohol) SOCIALLY [facility] Utilities Answer Date Recorded In the past 12 months has e [employer], gas, oil, or water [employer] threatened to shut off services in your [...] Info) Description 07/08/2025 10:00 AM EDT Lab [facility] - Lab [address] [place] [phone] Health Maintenance Due Date Last Done Comments [...] visualized. Prevoid volume 215.6 mL. Post void wupyor59.4 mL. IMPRESSION: * Normal renal ultrasound. * Normal bladder Finalized by Salvador Holbrook MD on 05/02/2025 12:58 PM us Mariela Nesbitt MD IMG US ORDERABLES Final Resul t * (ABNORMAL) CBC auto differential (04/09/2025 10:33 AM EDT) WBC 6.4 4 - 11 x10E9/L 04/09/2025 1:20 PM EDT [facility] RBC Count 5.15 3.8 - 5.2 X10E12/L 04/09/2025 1:20 PM EDT [facility] Hemoglobin 13.6 11.7 - 15.5 g/dL 04/09/2025 1:20 PM EDT [facility] Hematocrit 40.8 35 - 47 % 04/09/2025 1:20 PM EDT [facility] MCV 79(L) 80 - 100 fL 04/09/2025 1:20 PM EDT [facility] MCH 26.4(L) 27 - 34 pg 04/09/2025 1:20 PM EDT [facility] MCHC 33.3 32 - 36 g/dL 04/09/2025 1:20 PM EDT [facility] RDW 14.5 11.5 - 15 % 04/09/2025 1:20 PM EDT [facility] Platelet Count 332 150 - 450 X10E9/L 04/09/2025 1:20 PM EDT [facility] MPV 8.3 7 - 12 fL 04/09/2025 1:20 PM EDT [facility] Neutrophils % 69.3 % 04/09/2025 1:20 PM EDT [facility] Lymphocytes % 23.7 % 04/09/2025 1:20 PM EDT [facility] Monocytes % 5.7 % 04/09/2025 1:20 PM EDT [facility] Eosinophils % 0.6 % 04/09/2025 1:20 PM EDT [facility] Basophils % 0.7 % 04/09/2025 1:20 PM EDT [facility] Neutrophils Absolute (A) 4.4 1.5 - 6.6 10*3/uL 04/09/2025 1:20 PM EDT [facility] Lymphocytes Absolute 1.5 1.0 - 3.5 10*3/uL 04/09/2025 1:20 PM EDT [facility] Monocytes Absolute 0.4 0.0 - 0.9 10*3/uL 04/09/2025 1:20 PM EDT [facility] Eosinophils Absolute 0.0 0.0 - 0.4 10*3/uL 04/09/2025 1:20 PM EDT [facility] Basophils Absolute 0.0 0.0 - 0.2 10*3/uL 04/09/2025 1:20 PM EDT [facility] Differential Type AUTOMATED DIFFERENTIAL 04/09/2025 1:20 PM EDT [facility] Blood Venous blood / Unknown Venipuncture / Unknown 04/09/2025 10:33 AM EDT 04/09/2025 10:34 AM EDT Anna Leighton OFFICE AGENT-SHELLFISH BED WORKER LAB BLOOD ORDERABLES Fi nal Result [facility] [address] [place] [address], [place] [phone] * APTT (04/09/2025 10:33 AM EDT) APTT 32 26 - 37 sec 04/09/2025 11:16 AM EDT [facility] Blood Venous blood / Unknown Venipuncture / Unknown 04/09/2025 10:33 AM EDT 04/09/2025 10:34 AM EDT Anna Manzanares OFFICE AGENT-SHELLFISH BED WORKER LAB BLOOD ORDERABLES Fi nal Result Performing Organization Address City/[facility]/ZIP Co de Phone Number [address] [place] [address], [place] * (ABNORMAL) Protime & INR (04/09/2025 10:33 AM EDT) PROTIME 15.1(H) 9.8 - 13.2 sec 04/09/2025 11:16 AM EDT [facility] INR 1.3(H) 0.9 - 1.2 04/09/2025 11:16 AM EDT [facility] Blood Venous blood / Unknown Venipuncture / Unknown 04/09/2025 10:33 AM EDT 04/09/2025 10:34 AM EDT Anna Manzanares OFFICE AGENT-SHELLFISH BED WORKER LAB BLOOD ORDERABLES Fi nal Result [address] [place] [address], [place] * TSH (04/09/2025 10:33 AM EDT) TSH 1.30 0.49 - 4.67 uIU/mL 04/09/2025 1:46 PM EDT [facility] Blood Venous blood / Unknown Venipuncture / Unknown 04/09/2025 10:33 AM EDT 04/09/2025 10:34 AM EDT Anna Manzanares OFFICE AGENT-SHELLFISH BED WORKER LAB BLOOD ORDERABLES Fi nal Result [facility] [address] [place] [address], [place] [phone] * T4, free (04/09/2025 10:33 AM EDT) FREE T4 0.93 0.61 - 1.60 ng/dL 04/09/2025 1:50 PM EDT [facility] Blood Venous blood / Unknown Venipuncture / Unknown 04/09/2025 10:33 AM EDT 04/09/2025 10:34 AM EDT Anna Manzanares OFFICE AGENT-SHELLFISH BED WORKER LAB BLOOD ORDERABLES Fi nal Result Performing Organization Address City/[facility]/ZIP Co de Phone Number [facility] [address] [place] [address], from Last 3 Months Insurance [facility] PL[facility] MEDICAID Advance Directives * Full Code (Latest Code Status on File) Date Activated Date Inactivated Comments 12/31/2024 9:54 PM 01/03/2025 1:56 PM Healthcare Agents on File Name Relationship Healthcare Agent Relationship Communication Phil Bowen Significant Other Health Care Agent Peyman Simmons Health Care Agent [email or web address] Joseph Simmons Health Care Agent [email or web address] Care Teams Funeral Professional Relationship Specialty Start Date End Date No Pcp, [place] [address] PCP - General Family Medicine 12/31/24
--- OUTSIDE RECORDS SUMMARY | 2025-05-27 09:40 | XMS_ITS | Encounter Summary ---
Author Organization [facility] Address [address] [place] [address] Care Team Providers Care Distributor Sales Consultant Name Role Phone Unavailable Primary Care Provider Unavailabl e Encounter Details Date Type Department Care Team (Late st Contact Info) Description 05/20/2025 Clinisync Result Encounter NOMS External Department Unsolicited Arun Lee DO [address] [facility] [address] [place], [place] [address] Social History Tobacco Use Types Packs/Day Years [...] Description 06/19/2025 10:00 AM EDT Office Visit NOMNino Sanchez OBGYTemi [address] [place] [address] Anna Manzanares, BANG [address] [facility] [place] [address] documented as of this encounter Procedures Procedure Name Priority Date/Time Associated Diagnosis Comments ALL LIPID PROFILE (FASTING) Routine 05/20/2025 9:53 AM EDT documented in this encounter Results * (ABNORMAL) ALL LIPID PROFILE (FASTING) (05/20/2025 9:53 AM EDT) TRIGLYCERIDES 86 <=150 mg/dL [facility] CHOLESTEROL 207(H) <=200 mg/dL [facility] HDL CHOLESTEROL 55 40 - 60 mg/dL [facility] Comment: > or =60 mg/dl - LOW CARDIOVASCULAR RISK <40 mg/dl - HIGH CARDIOVASCULAR RISK LDL CHOLESTEROL CALCULATED 135.0 mg/dL TB Comment: <100 mg/dl OPTIMAL 100-129 mg/dl NEAR [...] us Arun Lee DO CLINIS[facility]NC Final Result [facility] documented in this encounter Visit Diagnoses Not on filedocumented in this encounter
[2025-05-27 11:05] LABS: Hematocrit 40.8 % (36.0-48.0); Hemoglobin 13.3 g/dL (12.0-16.0); Immature Granulocytes Abs Auto 0.01 10^3/uL (0.00-0.03); Immature Granulocytes Pct Auto 0.1 % (0.0-0.5); Lymphocytes Absolute Auto 1.6 10^3/uL (1.2-3.8); Mean Corpuscular HGB Conc 32.6 g/dL (29.9-35.2); Mean Corpuscular Hemoglobin 26.1 pg (26.7-34.0); Mean Corpuscular Volume 80.2 fL (81.0-99.0); Platelet Count 337 10^3/uL (150-450); Red Blood Count 5.09 10^6/uL (4.20-5.40); White Blood Count 6.7 10^3/uL (4.0-11.0)
[2025-05-27 11:17] LABS: INR 1.11; Partial Thromboplastin Time 29.6 sec (22.3-36.2); Prothrombin Time 11.6 sec (9.0-11.6)
[2025-05-27 11:21] LABS: Anion Gap 8.5; Blood Urea Nitrogen 10.0 mg/dL (7.0-18.0); Calcium 9.0 mg/dL (8.5-10.1); Carbon Dioxide 25.5 mmol/L (21.0-32.0); Chloride 106 mmol/L (98-107); Estimated GFR (African America >60 (>=60 mL/min/1.73m^2); Estimated GFR (Non-African Ame >60 (>=60 mL/min/1.73m^2); Glucose 84 mg/dL (74-106); Potassium 4.0 mmol/L (3.5-5.1); Sodium 136 mmol/L (136-145)
== END 2025-05-27 09:38 | disposition home or self-care (01) ==
PROVIDERS: PCP Nurse Practitioner; Visit Provider Obstetrics & Gynecology
DX: Z01.812 Encounter for preprocedural laboratory examination (principal); N92.0 Excessive and frequent menstruation with regular cycle; N93.9 Abnormal uterine and vaginal bleeding, unspecified; R10.2 Pelvic and perineal pain
CPT/HCPCS: 80048; 85025; 85610; 85730

== ENCOUNTER 2025-06-06 06:09 | Day surgery (SDC) | payer OTHER, SELFPAY ==
--- OUTSIDE RECORDS SUMMARY | 2025-04-15 11:15 | XMS_ITS ---
Author Organization [facility] [place] Address [address] [place] [address] Care Team Providers Care Nanofabrication Specialist Name Role Phone Yin Truong Primary Care Provider Maite Newell [phone] REASON FOR VISIT New PT Hem Encounters Encounter Location Date Provider Diagnosis [facility] [address] [place] [address] 04/15/2025 Maite Winchester Plan Of Treatment Next Appt Details Provider Name:Maite Winchester , 12/23/2025 10:30:00 AM, [address] [place], [address], Progress Notes * Leann FOSTERDOB:1974 (49 yo F)Acc No.[id number]:04/15/2025 UNLOCKED PROGRESS NOTE Progress Notes Patient: Ramon MONTOYA Leann Kilgore Provider: Jeannette Winchester M.D. :1975 A ge:49 Y S ex:Female Date:04/15/2025 Address:[address] [place], [place] [phone] Pcp:ARIAS Johnson Subjective: * Chief Complaints: * 1 . New PT Hem. * Medical History: Objective: * Vitals: Assessment: Plan: * Treatment: * * Electronic signature of Antonio Winchester MD, [id number] on 06/06/2025 at 06:13 AM EDT Sign off status: Pending Visit Status: P EN (Pending) * Provider: Jeannette Winchester M.D. Date: 0 04/15/2025 Generated for Celena goldstein/Shiloh/Romina on: 0 06/06/2025 06:13 AM EDT
--- OUTSIDE RECORDS SUMMARY | 2025-05-20 06:00 | XMS_ITS ---
Author Organization The [facility] in [place] Address [address] [place] [address] Care Team Providers Care Railroad Car Repairman Name Role Phone Yin Truong Primary Care Provider Maite Newell Unavailable [phone] REASON FOR VISIT MD Encounters Encounter Location Date Provider Diagnosis [facility] [address] [place] [address] 05/20/2025 Maite Winchester Plan Of Treatment Next Appt Details Provider Name:Maite Winchester , 12/23/2025 10:30:00 AM, [address] [place], [address], Progress Notes * Leann FOSTERDOB:1974 (49 yo F)Acc No.[id number]:05/20/2025 UNLOCKED PROGRESS NOTE Progress Notes Patient: Ramon MONTOYA Leann Kilgore Provider: Jeannette Winchester M.D. :1975 A ge:49 Y S ex:Female Date:05/20/2025 Address:[address] [place], [place] [id number] Pcp:ARIAS Johnson Subjective: * Chief Complaints: * 1 . MD. * Medical History: Objective: * Vitals: Assessment: Plan: * Treatment: * * Electronic signature of Antonio Winchester MD, [id number] on 06/06/2025 at 06:12 AM EDT Sign off status: Pending Visit Status: C ONFPHONE (Voice) * Provider: Jeannette Winchester M.D. Date: 0 05/20/2025 Generated for Celena goldstein/Shiloh/Romina on: 0 06/06/2025 06:12 AM EDT
[2025-05-27 10:37] VITALS: BP 126/81; PULSE 85; TEMP 36.3; O2SAT 99; BMI 33.1
--- OUTSIDE RECORDS SUMMARY | 2025-06-06 06:12 | XMS_ITS | Clinical Summary ---
Author Organization [facility] Address [address] [place], [place] [id number] Care Team Providers Care Outsole Scheduler Name Role Phone Beti Rod NURSE SPECIALIST Primary Care Provider Allergies No known active [...] N ot on file 09/24/2020 Data from: [email or web address] Last address used for calculation Not [...] METABOLIC PANEL (10/13/2017 4:55 PM EST) Pathologist [facility] Protein, Total 7.7 6.3 - 8.0 g/dL 10/13/2017 9:51 PM EST [facility] Albumin 4.1 3.9 - 4.9 g/dL 10/13/2017 9:51 PM EST [facility] Calcium 9.5 8.5 - 10.2 mg/dL 10/13/2017 9:51 PM EST [facility] Bilirubin, Total 0.3 0.2 - 1.3 mg/dL 10/13/2017 9:51 PM EST [facility] Alkaline Phosphatase 65 32 - 117 U/L 10/13/2017 9:51 PM [facility] AST 17 13 - 35 U/L 10/13/2017 9:51 PM [facility] Glucose 69(L) 74 - 99 mg/dL 10/13/2017 9:51 PM [facility] Comment: The [place] Diabetes Association (ADA) provides guidance for cutoff [...] Standards of Medical Care in Diabetes 2016, [place] Diabetes Association. Diabetes Care. 2016.39(Suppl 1). BUN 14 7 - 21 mg/dL 10/13/2017 9:51 PM [facility] Creatinine 0.75 0.58 - 0.96 mg/dL 10/13/2017 9:51 PM [facility] Sodium 141 136 - 144 mmol/L 10/13/2017 9:51 PM [facility] Potassium 3.8 3.7 - 5.1 mmol/L 10/13/2017 9:51 PM [facility] Chloride 101 97 - 105 mmol/L 10/13/2017 9:51 PM [facility] CO2 25 22 - 30 mmol/L 10/13/2017 9:51 PM [facility] Anion Gap 15 9 - 18 mmol/L 10/13/2017 9:51 PM [facility] ALT 21 7 - 38 U/L 10/13/2017 9:51 PM [facility] eGFR- >60 10/13/2017 9:51 PM [facility] eGFR-All Other Races >60 . 10/13/2017 9:51 PM [facility] Comment: eGFR (Estimated GFR) Units of [...] us Catrina Luciano MD LABORATORY Final Result [facility] [address] [place] [address] from Last 3 Months or Most Recently Relevant to Health Maintenance Care Teams Outsole Scheduler Relationship Specialty Start Date End Date Beti Rod CNP [facility] [place] [address] [place] [address] PCP - General Family Medicine 09/26/17
--- OUTSIDE RECORDS SUMMARY | 2025-06-06 06:12 | XMS_ITS | Encounter Summary ---
Author Organization [facility] Address [address] [place] [address] Care Team Providers Care Public Information Specialist Name Role Phone Unavailable Primary Care Provider Unavailabl e Encounter Details Date Type Department Care Team (Late st Contact Info) Description 05/27/2025 Clinisync Result Encounter NOMS External Department Unsolicited Arun Lee DO [address] [facility] [place] [address] Social History Tobacco Use Types Packs/Day Years [...] EDT Office Visit NOMNino Sanchez OBGYTemi [address] [facility] [address] [place] [address] Anna Manzanares, BANG [address] [facility] [facility] [place] [address] documented as of this encounter Procedures Procedure Name Priority Date/Time Associated Diagnosis Comments [facility] PROTHROMBIN TIME INR W/O COUM Routine 05/27/2025 10:57 AM EDT [facility] APTT Routine 05/27/2025 10:57 AM EDT ALL CBC WITH AUTO DIFF Routine 05/27/2025 10:57 AM EDT ALL BASIC METABOLIC PANEL Routine 05/27/2025 10:57 AM EDT documented in this encounter Results * ALL BASIC METABOLIC PANEL (05/27/2025 10:57 AM EDT) SODIUM 136 136 - 145 mmol/L TBH POTASSIUM 4.0 3.5 - 5.1 mmol/L [facility]H CHLORIDE 106 98 - 107 mmol/L [facility]H CARBON DIOXIDE 25.5 21.0 - 32.0 mmol/L TBH ANION GAP 8.5 TBH GLUCOSE 84 74 - 106 mg/dL [facility] BLOOD UREA NITROGEN 10.0 7.0 - 18.0 mg/dL [facility]H CREATININE 0.71 0.55 - 1.02 mg/dL TBH TBH EGFR-AF SYRIAN >60 >=60 mL/min/1.7 3m 2 TBH TBH EGFR-NON AF SYRIAN >60 >=60 mL/min/1.7 3m 2 TBH BUN CREATININE RATIO 14.1 TBH CALCIUM 9.0 8.5 - 10.1 mg/dL [facility] 05/27/2025 10:5 7 AM EDT 05/27/2025 10:59 AM EDT Narrative CLINISYNC - 05/27/2025 11:22 AM EDT Arun Jesus DO CLINISYNC Final Result [facility] * [facility] APTT (05/27/2025 10:57 AM EDT) PARTIAL THROMBOPLASTIN TIME 29.6 22.3 - 36.2 sec TBH 05/27/2025 10:5 7 AM EDT 05/27/2025 10:59 AM EDT Narrative CLINISYNC - 05/27/2025 11:17 AM EDT Arun Jesus DO CLINISYNC Final Result [facility] * [facility] PROTHROMBIN TIME INR W/O COUM (05/27/2025 10:57 AM EDT) Pathologist [facility] PROTHROMBIN TIME 11.6 9.0 - 11.6 sec TB TB INR 1.11 TB Comment: DESIRED INR: 2.0-3.0 CONDITIONS NOT LISTED BELOW 2.5-3.5 FOR PROSTHETIC HEART VALVE REPLACEMENT 2.5-3.5 RECURRENT THROMBOSIS 05/27/2025 10:5 7 AM EDT 05/27/2025 10:59 AM EDT Narrative CLINISYNC - 05/27/2025 11:17 AM EDT Arun Jesus DO CLINISYNC Final Result Performing Organization Address [facility] Co de Phone Number [facility] * (ABNORMAL) ALL CBC WITH AUTO DIFF (05/27/2025 10:57 AM EDT) Pathologist [facility] TB WBC 6.7 4.0 - 11.0 10 3/uL TBH TB RBC 5.09 4.20 - 5.40 10 6/uL TBH TB HGB 13.3 12.0 - 16.0 g/dL TB TB HCT 40.8 36.0 - 48.0 % TB TB MCV 80.2(L) 81.0 - 99.0 fL TBH TB MCH 26.1(L) 26.7 - 34.0 pg TBH TB MCHC 32.6 29.9 - 35.2 g/dL TB TB RDW 14.4 11.0 - 15.0 % TBH TBH PLT 337 150 - 450 10 3/uL TBH TBH MPV 9.7 9.5 - 13.5 fL TBH NEUTROPHILS PERCENT AUTO 67.6 43.0 - 75.0 % TBH LYMPHOCYTES PERCENT AUTO 23.8 20.5 - 60.0 % TBH MONOCYTES PERCENT AUTO 6.4 1.7 - 12.0 % TBH TBH EO % 1.2 0.9 - 7.0 % TBH BASOPHILS PERCENT AUTO 0.9 0.2 - 2.0 % TBH IMMATURE GRANULOCYTES PCT AUTO 0.1 0.0 - 0.5 % TBH NEUTROPHILS ABSOLUTE AUTO 4.5 1.4 - 6.5 10 3/uL TBH LYMPHOCYTES ABSOLUTE AUTO 1.6 1.2 - 3.8 10 3/uL TBH MONOCYTES ABSOLUTE AUTO 0.4 0.3 - 0.8 10 3/uL TBH TBH EO # 0.1 0.0 - 0.7 10 3/uL TBH BASOPHILS ABSOLUTE AUTO 0.1 0.0 - 0.1 10 3/uL TBH IMMATURE GRANULOCYTES ABS AUTO 0.01 0.00 - 0.03 10 3/uL TBH 05/27/2025 10:5 7 AM EDT 05/27/2025 10:59 AM EDT Narrative CLINISYNC - 05/27/2025 11:06 AM EDT us Arun Lee DO CLINISYNC Final Result [facility] TB documented in this encounter Visit Diagnoses Not on filedocumented in this encounter
--- OUTSIDE RECORDS SUMMARY | 2025-06-06 06:12 | XMS_ITS | Encounter Summary ---
Author Organization [facility] Address [address] [place] [address] Care Team Providers Care Special Projects Coordinator Name Role Phone Unavailable Primary Care Provider Unavailabl e Encounter Details Date Type Department Care Team (Late st Contact Info) Description 05/23/2025 Abstract NOMNino GARBER [address] [place] [address] Isela Yang MA Social [...] AM EDT Office Visit LINDSAY GARBER [address] [place] [address] Anna Manzanares, BANG [address] [facility] [place] [address] documented as of this encounter Visit Diagnoses Not on filedocumented in this encounter
--- OUTSIDE RECORDS SUMMARY | 2025-06-06 06:12 | XMS_ITS | Clinical Summary ---
Author Organization wavecatch tem Address [facility] [id number] [address] [place] [address] Care Team Providers Care Waste Picker Name Role Phone No Pcp, No Pcp [...] - 05/02/2025 11:59 PM EDT Hospital Encounter [facility] - Ultrasound [address] [place] [address] Urinary symptom or sign Discharge Disposition: Home 05/01/2025 Travel 04/09/2025 Orders Only INTERFACE-ONLY Yin Wilcox APRN-RAIAS 04/09/2025 Travel from Last 3 Months Family History Medical History Relation Name Comments COPD Father Diabetes Father Hyperlipidemia Father Hypertension Father Fibromyalgia Mother Breast cancer Neg Hx Relation Name Status Comments Father Alive Mother Alive poor health Sister 1 FILIPPO Alive Sister 2 YULISA Alive Social History Tobacco Use Types Packs/Day Years Used Date Smoking Tobacco: Never Smokeless Tobacco: Never Tobacco Cessation:Counseling Given: Not Answered Alcohol Use Standard Drinks/Week Comments Yes 0 (1 standard drink = 0.6 oz pur e alcohol) SOCIALLY [facility] Utilities Answer Date Recorded In the [...] Info) Description 07/08/2025 10:00 AM EDT Lab [facility] - Lab [address] [place] [address] Health Maintenance Due Date Last Done Comments [...] x10E9/L 04/09/2025 1:20 PM EDT [facility] RBC Count 5.15 3.8 - 5.2 X10E12/L 04/09/2025 1:20 PM EDT [facility] Hemoglobin 13.6 11.7 - 15.5 g/dL 04/09/2025 1:20 PM EDT [facility] Hematocrit 40.8 35 - 47 % 04/09/2025 1:20 PM EDT [facility] MCV 79(L) 80 - 100 fL 04/09/2025 1:20 PM EDT [facility] MCH 26.4(L) 27 - 34 pg 04/09/2025 1:20 PM EDT [facility] MCHC 33.3 32 - 36 g/dL 04/09/2025 1:20 PM EDT [facility] RDW 14.5 11.5 - 15 % 04/09/2025 1:20 PM EDT [facility] Platelet Count 332 150 - 450 X10E9/L 04/09/2025 1:20 PM EDT [facility] MPV 8.3 7 - 12 fL 04/09/2025 1:20 PM EDT [facility] Neutrophils % 69.3 % 04/09/2025 1:20 PM EDT [facility] Lymphocytes % 23.7 % 04/09/2025 1:20 PM EDT [facility] Monocytes % 5.7 % 04/09/2025 1:20 PM EDT [facility] Eosinophils % 0.6 % 04/09/2025 1:20 PM EDT [facility] Basophils % 0.7 % 04/09/2025 1:20 PM EDT [facility] Neutrophils Absolute (A) 4.4 1.5 - 6.6 10*3/uL 04/09/2025 1:20 PM EDT [facility] Lymphocytes Absolute 1.5 1.0 - 3.5 10*3/uL 04/09/2025 1:20 PM EDT [facility] Monocytes Absolute 0.4 0.0 - 0.9 10*3/uL 04/09/2025 1:20 PM EDT [facility] Eosinophils Absolute 0.0 0.0 - 0.4 10*3/uL 04/09/2025 1:20 PM EDT [facility] Basophils Absolute 0.0 0.0 - 0.2 10*3/uL 04/09/2025 1:20 PM EDT [facility] Differential Type AUTOMATED DIFFERENTIAL 04/09/2025 1:20 PM EDT [facility] Blood Venous blood / Unknown Venipuncture / Unknown 04/09/2025 10:33 AM EDT 04/09/2025 10:34 AM EDT us Anna Manzanares BEET END SUPERVISOR-MASTER SONAR TECHNICIAN LAB BLOOD ORDERABLES Fi nal Result [facility] [address] [place] [address], [place] [phone] * APTT (04/09/2025 10:33 AM EDT) APTT 32 26 - 37 sec 04/09/2025 11:16 AM EDT [facility] Blood Venous blood / Unknown Venipuncture / Unknown 04/09/2025 10:33 AM EDT 04/09/2025 10:34 AM EDT Anna Leighton BEET END SUPERVISOR-MASTER SONAR TECHNICIAN LAB BLOOD ORDERABLES Fi nal Result [address] [place] [address], [place] * (ABNORMAL) Protime & INR (04/09/2025 10:33 AM EDT) PROTIME 15.1(H) 9.8 - 13.2 sec 04/09/2025 11:16 AM EDT [facility] INR 1.3(H) 0.9 - 1.2 04/09/2025 11:16 AM EDT [facility] Blood Venous blood / Unknown Venipuncture / Unknown 04/09/2025 10:33 AM EDT 04/09/2025 10:34 AM EDT Anna Melaraerly BEET END SUPERVISOR-MASTER SONAR TECHNICIAN LAB BLOOD ORDERABLES Fi nal Result [address] [place] [address], [place] * TSH (04/09/2025 10:33 AM EDT) TSH 1.30 0.49 - 4.67 uIU/mL 04/09/2025 1:46 PM EDT [facility] Blood Venous blood / Unknown Venipuncture / Unknown 04/09/2025 10:33 AM EDT 04/09/2025 10:34 AM EDT Anna Melaraerly BEET END SUPERVISOR-MASTER SONAR TECHNICIAN LAB BLOOD ORDERABLES Fi nal Result [facility] [address] [place] [address], [place] [phone] * T4, free (04/09/2025 10:33 AM EDT) FREE T4 0.93 0.61 - 1.60 ng/dL 04/09/2025 1:50 PM EDT [facility] Blood Venous blood / Unknown Venipuncture / Unknown 04/09/2025 10:33 AM EDT 04/09/2025 10:34 AM EDT Anna Manzanares BEET END SUPERVISOR-MASTER SONAR TECHNICIAN LAB BLOOD ORDERABLES Fi nal Result Performing Organization Address City/[facility]/ZIP Co de Phone Number [facility] [address] [place] [address], [place] [phone] from Last 3 Months Insurance [facility] MEDICAID Advance Directives * Full Code (Latest Code Status on File) Date Activated Date Inactivated Comments 12/31/2024 9:54 PM 01/03/2025 1:56 PM Healthcare Agents on File Name Relationship Healthcare Agent [facility] Communication [facility] Health Care Agent [email or web address] Joseph Simmons Health Care Agent [email or web address] Care Teams Waste Picker Relationship Specialty Start Date End Date No Pcp, [place] [address] PCP - General Family Medicine 12/31/24
--- OUTSIDE RECORDS SUMMARY | 2025-06-06 06:13 | XMS_ITS | Patient Health Record ---
Author Organization [facility] in [place] Address [address] [place] [address] Care Team Providers Care Hyperion Analyst Name Role Phone Yin Truong Primary Care Provider Unavaila bertram YeboahMaite lanier Unavailable [phone] Results Component Value Reference Range Notes LAB TESTING (Not yet reviewe d by provider) Interpretation: Performing Lab: Notes/Report: [id number] Antiphosphatidylserine, IgG and IgM [facility] , Miscellaneous Test COMMENT . Antiphosphatidylserine IgG 12 Units BN [address] [place], [place] [id number] Automation Test Engineer: Renzo Garcia PhD, Phone: [phone] Reference Range: 0-30 Antiphosphatidylserine IgM [address] [place] [address] [place] [id number] Performed at: [facility] Test Ordered: [id number] Antiphosphatidylserine, IgG/IgM Performed at: [facility] Automation Test Engineer: Lyle Jefferson MD, Phone: [phone] Reference Range: 0-30 Performing Lab: see note - [facility] LB Anticardiolipin Ab, IgG/M, Q n (Not yet reviewed by provider) Interpretation: Performing Lab: Notes/Report: [facility] , Anticardiolipin Ab,IgG,Qn <9 0-14 GPL U/mL Indeterminate: 15 - 20 Low-Med Positive: >20 - 80 Negative: <15 High Positive: >80 Anticardiolipin Ab,IgM,Qn <9 0-12 MPL U/mL [address] [place], [place] [id number] High Positive: >80 Automation Test Engineer: Renzo Garcia PhD, Phone: [phone] Negative: <13 Performed at: CB - [facility] [place] Indeterminate: 13 - 20 Low-Med Positive: >20 - 80 Performing Lab: see note - [facility] LB CBC AUTO DIFF (Not yet revie wed by provider) Interpretation: Performing Lab: Notes/Report: [facility] , White Blood Count 7.4 4.0-11.0 10 [...] 10 3/uL Performing Lab: see note - [facility] LB CT angio abdomen pelvis (Not yet reviewed by provider) Interpretation: Performing Lab: Notes/Report: Source Facility: [facility]-[address] [place] [address] [address] [address] Scan Report Signed Patient: HARJINDER FOSTER MR#: [id number] : 1975 Acct:[id number] Age/Sex: 49 / F ADM Date: 04/28/25 Loc: CT Attending Dr: Maite Winchester M.D. Ordering Physician: Maite Winchester M.D. Date of Service: 04/28/25 Procedure(s): CT angio abdomen pelvis Accession Number(s): [id number] cc: Yin Bell NP [address] [address] Patient Name: HARJINDER FOSTER MRN: [id number] date: 1975 Sex: F Assigned Patient Location: CT Current Patient Location: CT Accession/Order Number: [id number] Exam Date: 04/28/2025 12:05 Report Date: 04/28/2025 [...] Waters M.D. 04/28/2025 12:19 PM Dictation Location: [place] [address] Electronically authenticated by: [id number] Y Date: 04/28/2025 12:19 Dictated By: Jeanne Waters M.D. Signed By: 04/28/25 1221 DD/ 1219 TD/TT: Ship Officer: [place] [address] CT Scan Report Signed Patient: HARJINDER FOSTER MR#: [id number] : 1975 Acct:[id number] Age/Sex: 49 / F ADM Date: 04/28/25 Loc: CT Attending Dr: Ari Winchester M.D. Ordering Physician: Maite Winchester M.D. Date of Service: 04/28/25 Procedure(s): CT ang io abdomen pelvis Accession Number(s): [id number] cc: Yin Bell ACTIVATED SLUDGE OPERATOR [place] [id number] Patient Name: HARJINDER FOSTER MRN: [id number] date: 1975 Sex: F Assigned Patient Location: CT Current Patient Location: CT Accession/Order Numb er: [id number] Exam Date: 04/28/2025 12:05 Report Date: 04/28/2025 [...] Waters M.D. 04/28/2025 12:19 PM Dictation Location: [place] [address] Electronically authenticated by: [id number] Y Date: 04/28/2025 12:19 Dictated By: Jeanne Waters M.D. Signed By: 04/28/25 1221 DD/ 1219 TD/TT: Ship Officer: Beta-2 Glycoprotein I Ab,G,A ,M (Not yet [...] Beta-2 Glycoprotein I Ab, IgM <9 0-[address] [place] [phone] Performed at: [facility] Result Units: GPI IgM units Automation Test Engineer: Renzo Garcia PhD, Phone: [phone] Thromb Haem 2006;4:295-306. The reference interval reflects a 3SD or 99th percentile interval, which is thought to represent a potentially clinically significant result in accordance with the criteria for definitive antiphospholipid syndrome (APS). J International Consensus Statement on the classification Performing Lab: see note - [facility] IRON AND TIBC (Not yet revie wed by provider) Interpretation: Performing Lab: Notes/Report: [facility] , Iron 50.0 50.0-170.0 ug/dL Total Iron Binding Capacity 336.0 250.0-450.0 ug/dL Percent Iron Saturation 14.9 Performing Lab: see note ML - [facility] LB LAB TESTING (Not yet reviewe d by provider) Interpretation: Performing Lab: Notes/Report: [id number] Ferritin [facility] , Miscellaneous Test COMMENT . Test Ordered: [id number] Ferritin Ferritin 57 ng/mL CB Automation Test Engineer: Renzo Garcia PhD, Phone: [phone] Performed at: [facility] Reference Range: 15-[address] [place] [phone] Performing Lab: see note - [facility] LB Reason For Referral No Information Encounters Encounter Location Date Provider Diagnosis [facility] Oncology [address] [place] [address] 05/20/[address] [facility] Oncology [address] [place] [address] 04/15/2025 Maite Winchester Plan Of Treatment Pending Test Test Name Order Date CBC AUTO DIFF 05/01/2025 IRON AND TIBC 05/01/2025 LAB TESTING 05/01/2025 LAB TESTING 05/01/2025 CT angio abdomen pelvis 04/28/2025 Beta-2 Glycoprotein I Ab,G,A,M Anticardiolipin Ab, IgG/M, Qn 05/01/2025 Next Appt Details Provider Name:Maite Winchester , 12/23/2025 10:30:00 AM, [address] [place], [address], Insurance Providers Payer Name Payer Address Payer Phone Subscriber Number Group Number Insured Name Patient Relationship to Insured Coverage Start Date Coverage End Date [employer] MEDICAID [address] [place] [address] [phone] [id number] Harjinder Foster Self - patient is the insured
--- OUTSIDE RECORDS SUMMARY | 2025-06-06 06:13 | XMS_ITS | Clinical Summary ---
Author Organization [facility] Address [address] [place] [address] Care Team Providers Care Sea Shell Gatherer Name Role Phone Unavailable Primary Care Provider [...] the morning and 500 mg before bedtime. 05/02/2025 Active methocarbamol (Robaxin) 500 MG tablet TAKE 1 TABLET BY MOUTH EVERY 4 HOURS FOR 14 DAYS 05/01/2025 Active phenazopyridine (Pyridium) 200 MG tablet 05/01/2025 Active Encounters Date Type Department Care Team Description 05/27/2025 Clinisync Result Encounter [facility] External Department Unsolicited Arun Lee DO 05/23/2025 Abstract [facility] [address] [place] [id number] Isela Yang MA 05/20/2025 Clinisync Result Encounter [facility] External Department Unsolicited Arun Lee, 05/07/2025 1:30 PM [place] [address] Arun Lee DO Pre-op examination; Pelvic pain; Menorrhagia with regular cycle; Abnormal uterine bleeding (AUB); Squamous acanthoma of eyelid 05/07/2025 Abstract [facility] [place] [address] Arun Lee, 05/05/2025 [place] [address] Felisha Greer MA 04/23/2025 Abstract [facility] [place] [address] Isela Yang MA 04/09/2025 9:00 AM EDT Ancillary [place] [address] Abnormal uterine bleeding (AUB); Menorrhagia with regular cycle; Perimenopausal vasomotor symptoms 04/09/2025 External Result Encounter [facility] External Department Unsolicited Anna Manzanares NP 03/31/2025 2:30 PM EDT [place] [address] Arun Lee DO Menorrhagia with regular cycle (Primary Dx); Abnormal uterine bleeding (AUB); Perimenopausal vasomotor symptoms 03/31/2025 [place] [address] Arun Lee, 03/30/2025 Travel from Last 3 Months Social [...] EDT Office Visit [facility] [address] [place] [address] Anna Manzanares NP [address] [place] [address] Procedures Procedure Name Priority Date/Time Associated Diagnosis Comments ALL BASIC METABOLIC PANEL Routine 05/27/2025 10:57 AM EDT [facility] APTT Routine 05/27/2025 10:57 AM EDT [facility] PROTHROMBIN TIME INR W/O COUM Routine 05/27/2025 10:57 AM EDT ALL CBC WITH AUTO DIFF Routine 10:57 AM EDT ALL LIPID PROFILE (FASTING) Routine 05/20/2025 9:53 [...] symptoms from Last 3 Months Results * [facility] PROTHROMBIN TIME INR W/O COUM (05/27/2025 10:57 AM EDT) PROTHROMBIN TIME 11.6 9.0 - 11.6 sec [facility] TBH INR 1.11 [facility] Comment: DESIRED INR: 2.0-3.0 CONDITIONS NOT LISTED BELOW 2.5-3.5 FOR PROSTHETIC HEART VALVE REPLACEMENT 2.5-3.5 RECURRENT THROMBOSIS 05/27/2025 10:5 7 AM EDT 05/27/2025 10:59 AM EDT Narrative [facility] - 05/27/2025 11:17 AM EDT Arun Jesus DO CLINISYNC Final Result [facility] * [facility] APTT (05/27/2025 10:57 AM EDT) PARTIAL THROMBOPLASTIN TIME 29.6 22.3 - 36.2 sec TB 05/27/2025 10:5 7 AM EDT 05/27/2025 10:59 AM EDT Narrative [facility] - 05/27/2025 11:17 AM EDT [facility] Jesus DO CLINISYNC Final Result [facility] * (ABNORMAL) ALL CBC WITH AUTO DIFF (05/27/2025 10:57 AM EDT) TBH WBC 6.7 4.0 - 11.0 10 3/uL TBH TBH RBC 5.09 4.20 - 5.40 10 6/uL TB[facility] TBH HGB 13.3 12.0 - 16.0 g/dL TBH TBH HCT 40.8 36.0 - 48.0 % TBH TBH MCV 80.2(L) 81.0 - 99.0 fL TBH TBH MCH 26.1(L) 26.7 - 34.0 pg TBH TBH MCHC 32.6 29.9 - 35.2 g/dL [facility] TBH RDW 14.4 11.0 - 15.0 % TBH [...] - 05/27/2025 11:06 AM EDT us Arun Cardonao DO CLINISYNC Final Result [facility] * ALL BASIC METABOLIC PANEL (05/27/2025 10:57 AM EDT) Pathologist [facility] SODIUM 136 136 - 145 mmol/L TBH POTASSIUM 4.0 3.5 - 5.1 mmol/L [facility] CHLORIDE 106 98 - 107 mmol/L TBH CARBON DIOXIDE 25.5 21.0 - 32.0 mmol/L TBH ANION GAP 8.5 TBH GLUCOSE 84 74 - 106 mg/dL TBH BLOOD UREA NITROGEN 10.0 7.0 - 18.0 mg/dL [facility] CREATININE 0.71 0.55 - 1.02 mg/dL TBH TBH EGFR-AF BULGARIAN >60 >=60 mL/min/1.7 3m 2 TBH TBH EGFR-NON AF BULGARIAN >60 >=60 mL/min/1.7 3m 2 TBH BUN CREATININE RATIO 14.1 TBH CALCIUM 9.0 8.5 - 10.1 mg/dL TBH 05/27/2025 10:5 7 AM EDT 05/27/2025 10:59 AM EDT Narrative [facility] - 05/27/2025 11:22 AM EDT Arun Lee DO [facility] * (ABNORMAL) ALL LIPID PROFILE (FASTING) (05/20/2025 9:53 AM EDT) TRIGLYCERIDES 86 <=150 mg/dL TBH CHOLESTEROL 207(H) <=200 mg/dL TB HDL CHOLESTEROL 55 40 - 60 mg/dL TB Comment: > or =60 mg/dl - LOW CARDIOVASCULAR RISK <40 mg/dl - HIGH CARDIOVASCULAR RISK LDL CHOLESTEROL CALCULATED 135.0 mg/dL TB Comment: <100 mg/dl OPTIMAL 100-129 mg/dl NEAR OR ABOVE OPTIMAL 130-159 mg/dl BORDERLINE HIGH 160-189 mg/dl HIGH >190 mg/dl VERY HIGH VLDL CHOLESTEROL 17.2 mg/dL TB CHOL HDL RATIO 3.8 TB Comment: 3.3 - 4.4 LOW RISK 4.4 - 7.1 AVERAGE RISK 7.1 - 11.0 MODERATE RISK >11.0 HIGH RISK 05/20/2025 9:53 AM EDT 05/20/2025 9:53 AM EDT Narrative [facility] - 05/20/2025 10:23 AM EDT us Arun Lee DO CLINISYNC Final Result [facility] * TSH ([facility]) (04/09/2025 10:33 AM EDT) TSH 1.30 0.49 - 4.67 uIU/mL [facility] Comment: PERFORMED AT [facility] [address],[place] [address] 04/09/2025 10:3 3 AM EDT 04/09/2025 10:34 AM EDT us Anna Manzanares SUBSCRIPTION CLERK LAB BLOOD ORDERABLES Final Re sult [facility] [address],[place] [address] 04/09/2025 10:3 3 AM EDT 04/09/2025 10:34 AM EDT Anna Manzanares SUBSCRIPTION CLERK LAB BLOOD ORDERABLES Final Re sult Performing Organization Address City/[facility] Co de Phone Number [facility] * APTT (04/09/2025 10:33 AM EDT) APTT 32 26 - 37 sec [facility] Comment: PERFORMED AT [address] [place] [address] 04/09/2025 10:3 3 AM EDT 04/09/2025 10:34 AM EDT Anna Manzanares SUBSCRIPTION CLERK LAB BLOOD ORDERABLES Final Re sult Performing Organization Address [facility] de Phone Number [facility] * (ABNORMAL) Protime-INR (04/09/2025 10:33 AM EDT) PROTIME 15.1(H) 9.8 - 13.2 sec [facility] INR 1.3(H) 0.9 - 1.2 NA [facility] Comment: PERFORMED AT [address] [place] [address] 04/09/2025 10:3 3 AM EDT 04/09/2025 10:34 AM EDT Anna Manzanares SUBSCRIPTION CLERK LAB BLOOD ORDERABLES Final Re sult Performing Organization Address City/[facility] Co de Phone Number [facility] * T4, free (04/09/2025 10:33 AM EDT) FREE T4 0.93 0.61 - 1.60 ng/dL [facility] Comment: PERFORMED AT [facility] [address],[place] [address] 04/09/2025 10:3 3 AM EDT 04/09/2025 10:34 AM EDT us Anna Manzanares SUBSCRIPTION CLERK LAB BLOOD ORDERABLES Final Re sult [facility] [...] PHD at 10-Apr-2025 09:47:18 AM [facility] Procedure Note Candi Chadwick MD - [...] signed by CANDI CHADWICK II, MD, PHD [id number] 09:47:18 AM [facility] us Anna Manzanares NP IMG US PROCEDURES Final Resul t from Last 3 Months Insurance [employer] MEDICAID
--- OUTSIDE RECORDS SUMMARY | 2025-06-06 06:13 | XMS_ITS | Encounter Summary ---
Author Organization [facility] Address [address] [place] [address] Care Team Providers Care Interactive Media Marketing Specialist Name Role Phone Unavailable Primary Care Provider Unavailabl e Encounter Details Date Type Department Care Team (Late st Contact Info) Description 04/23/2025 Abstract [facility] [address] [place] [address] Isela Yang MA Social History Tobacco [...] AM EDT Office Visit [facility] [address] [place] [address] Anna Manzanares, BANG [address] [place] [address] documented as of this encounter Visit Diagnoses Not on filedocumented in this encounter
[2025-06-06 06:15] VITALS: BP 138/83; PULSE 89; TEMP 36.2; O2SAT 97; BMI 32.8
[2025-06-06 06:24] LABS: Hematocrit 40.3 % (36.0-48.0); Hemoglobin 13.1 g/dL (12.0-16.0); Immature Granulocytes Abs Auto 0.01 10^3/uL (0.00-0.03); Immature Granulocytes Pct Auto 0.1 % (0.0-0.5); Lymphocytes Absolute Auto 2.2 10^3/uL (1.2-3.8); Mean Corpuscular HGB Conc 32.5 g/dL (29.9-35.2); Mean Corpuscular Hemoglobin 26.4 pg (26.7-34.0); Mean Corpuscular Volume 81.1 fL (81.0-99.0); Platelet Count 361 10^3/uL (150-450); Red Blood Count 4.97 10^6/uL (4.20-5.40); White Blood Count 7.4 10^3/uL (4.0-11.0)
[2025-06-06 08:23] VITALS: BP 83/54; PULSE 80; TEMP 36.1; O2SAT 95
[2025-06-06 08:38] VITALS: BP 89/58; PULSE 77; O2SAT 97
--- NOTE | 2025-06-06 08:42 | P.ON_ITS ---
Brief Operative Note Date of procedure: 06/06/25 Pre-op diagnosis general: menorrhagia, dysmenorrhea Post-op diagnosis: same as pre-op Procedure: NAME OF PROCEDURE: [ ] Maria Antonia endometrial ablation with hysteroscopy. PROCEDURE: The patient was taken back to the OR where she was prepped and draped in the normal sterile fashion after being placed in the dorsal lithotomy position, after being placed under general anesthesia without difficulty.? A weighted speculum was placed into the vagina. The anterior lip was grasped with a single tooth tenaculum. The patient was then sounded to approximated 8cm. The patient?s cervix was gently dilated using hegardilators. The hysteroscope was passed through the cervix into the uterus where both ostia were seen. No gross evidence of polyps, fibroids or malignancy. The cervical length was noted to be 4 cm. The total cavity length is 4cm.? The Maira Antonia ablation apparatus was set to approximately 4cm in length. This was placed through the cervix and into the uterus. After the seal was tested, at that time the total ablation of 120 seconds was performed with the Maria Antonia withoutdifficulty. All instruments were removed from the vagina. Excellent hemostasis noted.? Sponge and lap count co rrect times 2.? Patient taken to recovery in stable condition. Anesthesia: MAC Surgeon: Arun Lee Estimated blood loss (mL): 5 Pathology: none sent Condition: stable Disposition: PACU Urinary Catheter Management Urinary Catheter Management Urethral: Cath placed during this visit: no
[2025-06-06 08:53] VITALS: BP 152/81; PULSE 79; O2SAT 97
[2025-06-06 09:20] VITALS: BP 148/94; PULSE 72; O2SAT 99
--- NOTE | 2025-06-06 09:25 | PC.NURSE ---
0915: pt ambulates to bathroom,voids without difficulty.
== END 2025-06-06 09:21 | disposition home or self-care (01) ==
PROVIDERS: PCP Nurse Practitioner; Visit Provider Obstetrics & Gynecology
PROC: (CPT 952; principal; 2025-06-06 07:30)
DX: N92.0 Excessive and frequent menstruation with regular cycle (principal); N93.9 Abnormal uterine and vaginal bleeding, unspecified; R10.2 Pelvic and perineal pain; Z79.01 Long term (current) use of anticoagulants; Z98.51 Tubal ligation status; Z86.718 Personal history of other venous thrombosis and embolism; J45.909 Unspecified asthma, uncomplicated; Z86.711 Personal history of pulmonary embolism; M06.9 Rheumatoid arthritis, unspecified; D64.9 Anemia, unspecified
CPT/HCPCS: 58563; 36415; 84702; 85025; J1100; J2250; J2405; J2704; J3010

== ENCOUNTER 2025-06-19 10:56 | Outpatient (OUT) | payer OTHER, SELFPAY ==
[2025-06-20 13:08] LABS: Rapid Plasma Reagin, Quant Non Reactive titer (NonRea<1:1)
[2025-06-24 06:07] LABS: HSV-1 DNA Negative (Negative); HSV-2 DNA Negative (Negative)
== END 2025-06-19 10:57 | disposition home or self-care (01) ==
LOC: LAB 10:57
PROVIDERS: Visit Provider Nurse Practitioner Family
DX: Z20.2 Contact with and (suspected) exposure to infections with a predominantly sexual mode of transmission (principal)
CPT/HCPCS: 36415; 86592; 87340; 87389; 87529